=== PATIENT | male | born 1955 | race Caucasian/White ===

== ENCOUNTER 2019-08-15 13:37 | Outpatient (CLI) | payer MEDICAID, SELFPAY ==
[2019-08-15] MEDS: cyanocobalamin 1,000 mcg/mL SDV 1000 MCG SUBCUT (14:05)
== END 2019-08-15 13:38 | disposition home or self-care (01) ==
LOC: ONCMED 13:42
PROVIDERS: Family Provider Family Medicine; PCP Family Medicine; Visit Provider Internal Medicine Medical Oncology
DX: E53.8 Deficiency of other specified B group vitamins (principal)
CPT/HCPCS: 96372; J3420

== ENCOUNTER 2019-09-10 11:33 | Outpatient (CLI) | payer MEDICAID, SELFPAY ==
[2019-09-10] MEDS: cyanocobalamin 1,000 mcg/mL SDV 1000 MCG SUBCUT (13:04)
== END 2019-09-10 11:34 | disposition home or self-care (01) ==
LOC: ONCMED 11:34
PROVIDERS: Family Provider Family Medicine; PCP Family Medicine; Visit Provider Internal Medicine Medical Oncology
DX: E53.8 Deficiency of other specified B group vitamins (principal); C77.8 Secondary and unspecified malignant neoplasm of lymph nodes of multiple regions; C61 Malignant neoplasm of prostate
CPT/HCPCS: 96372; J3420

== ENCOUNTER 2019-10-09 12:16 | Outpatient (CLI) | payer MEDICAID, SELFPAY ==
[2019-10-09 13:10] LABS: Basophils # 0.1 10^3/uL (0.0-0.1); Basophils % 0.6 %; Eosinophils # 0.3 10^3/uL (0.0-0.8); Eosinophils % 3.6 %; Hematocrit 39.6 % (42.0-52.0); Hemoglobin 13.1 g/dL (11.7-16.6); Lymphocytes # 2.5 10^3/uL (0.8-4.8); Lymphocytes % 32.6 %; Mean Corpuscular HGB Conc 33.1 g/dL (30.0-36.0); Mean Corpuscular Hemoglobin 27.8 pg (28.0-34.0); Mean Corpuscular Volume 84.1 fL (80-94); Monocytes # 0.6 10^3/uL (0.2-0.9); Monocytes % 7.6 %; Neutrophils # 4.3 10^3/uL (1.8-7.7); Neutrophils % 55.5 %; Nucleated Red Blood Cells % 0 %; Platelet Count 217 10^3/cmm (130-400); Red Blood Count 4.71 10^6/uL (4.1-5.3); Red Cell Distribution Width 13.1 % (12.1-15.1); White Blood Count 7.7 10^3/uL (4.0-10.0)
[2019-10-09 13:33] LABS: Prostate Specific Antigen 3.49 ng/mL (0-4)
[2019-10-09 13:34] LABS: Testosterone Total 2.5 ng/dL (193-740)
[2019-10-09 13:45] LABS: Alanine Aminotransferase 11 U/L (0-41); Albumin Level 4.4 g/dL (3.5-5.2); Alkaline Phosphatase 110 IU/L (40-130); Anion Gap 17.4 (5-19); Aspartate Amino Transferase 15 U/L (0-40); Blood Urea Nitrogen 11 mg/dL (8-23); Calcium 9.8 mg/dL (8.5-10.5); Carbon Dioxide 25 mmol/L (22-29); Chloride 101 mmol/L (98-107); Globulin 3.2 g/dL (1.3-4.6); Glomerular Filtration Rate 85.5 mL/min (90-130); Glucose 99 mg/dL (65-115); Potassium 3.4 mmol/L (3.5-5.1); Sodium 140 mmol/L (136-145); Total Bilirubin 0.3 mg/dL (0.15-1.2); Total Protein 7.6 g/dL (6.6-8.7)
[2019-10-09] MEDS: leuprolide 22.5 mg Kit IM (14:40)
[2019-10-09] MEDS: cyanocobalamin 1,000 mcg/mL SDV 1000 MCG SUBCUT (14:40)
[2019-10-09 20:50] LABS: Erythrocyte Sedimentation Rate 20 mm/hr (0-10)
--- NOTE | 2019-10-10 07:20 | ONC FU_ITS ---
Dr. Heath Patient Follow-Up Note Patient: Shiva Cyr Unit #: [id number]: 1955 Dicatated By: Italo Heath M.D.Date of Visit:Oct 09, 2019 Onc Med Follow-up/Prog Note Chief Complaint: Prostate cancer. 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 In May 2015 he developed urinary retention. He apparently was then seen by a urologist in [place]. According to Dr. Olivo's note, they had suspected prostate cancer based on physical findings and elevated PSA level at 59 ng/mL. He declined biopsy or treatment. He was given a prescription for tamsulosin, but he stopped taking it because some of his joint pain got worse. In July 2016 he was admitted to the hospital with urinary retention. He underwent cystoscopy with transurethral resection/vaporization of the prostate on 07/27/2016. He was noted to have a fixed prostate gland with grossly abnormal architecture. There was evidence of early invasion into the right trigone of the bladder. Pathology showed prostatic adenocarcinoma, [place] score 4+4. Tumor was noted to infiltrate 90% of the submitted tissues. His PSA level at that time was 124 ng/mL. Renal function was borderline with BUN 11 and creatinine 1.3 mg/dL. The alkaline phosphatase was normal. He had further evaluation with bone scan on 08/05/2016. It showed no evidence of metastatic disease. Contrast enhanced CT evidence/pelvis at that time showed markedly enlarged prostate with enhancement of the seminal vesicles suggestive of neoplastic invasion. The base and posterior inferior aspect of the bladder wall also appeared likely invaded. There was diffuse mild thickening of the remainder of the bladder wall. There was mild right hydronephrosis and moderate right ureterectasis likely secondary to partial obstruction of the right ureterovesical junction from neoplastic bladder base invasion. There were multiple enlarged lymph nodes including the iliac regions, left greater than right, and left para-aortic retroperitoneum. The largest node was a left internal iliac region node measuring 4.5 x 2.3 x 2.9 cm. External left iliac nodes measure up to 3.3 x 3.6 x 2.9 cm. He did have follow-up visit with Dr. Olivo at that time. He was recommended to begin androgen deprivation therapy. I had seen him initially on 10/29/2016. At that point he was still having some swelling in his left leg. He was voiding better following the surgery in July. He did agree to proceed with the androgen deprivation therapy, and initially he started treatment with bicalutamide 50 mg daily. He received his initial injection of Depo-Lupron on 11/24/2016. His PSA level at that point had declined to 30.00 ng/mL compared to 124 ng/mL in July 2016. He had repeat laboratory studies on 12/23/2016. His PSA level at that point had declined to 7.58 ng/mL. At the 2017 [employer] meeting the results of a clinical trial were reported which indicated survival benefit with upfront use of abiraterone in combination with androgen deprivation compared to initiation of abiraterone with evidence of castrate resistance. As such, he was offered the option to begin treatment with Zytiga, which we were able to obtain for him under the [employer]'s patient assistance program. However, after reviewing the potential side effects, he was reluctant to take the medication. He then continued treatment with Depo-Lupron. As of 02/15/2017 his PSA level had declined to 1.97 ng/mL. He received a second injection of Depo-Lupron 22.5 mg on 02/23/2017. On his follow-up visit on 05/26/2017 his PSA had further declined to 0.68 ng/mL. However, at that point he opted to stop his treatment due to side effects, mainly hot flashes and fatigue. On his follow-up visit in August 2017 his PSA level had increased to 12.20 ng/mL, and he did agree to restart the Depo-Lupron. As of 12/15/2017 his PSA level had declined to 0.55 ng/mL. On his follow-up visit in March 2018 he had opted to stop treatment again. At that time he was found to have a low B12 level at 138 pg/mL, and he then started B12 replacement. As of his follow-up visit on 06/26/2018 there was a significant increase in the PSA level, up to 5.96 ng/mL. He then restarted Depo-Lupron. At his follow-up visit on 09/28/2018 the PSA had declined to 0.59 ng/mL. He continued treatment with Depo-Lupron. His medical illnesses, in addition to prostate cancer, include hypertension, degenerative arthritis, B12 deficiency, and obstructive sleep apnea. On 09/29/2017 he underwent repair of left inguinal hernia. He is a nonsmoker. INTERIM HISTORY: During followup he had continued his Depo-Lupron injections every 3 months. As of July 2019 his PSA level had increased slightly, to 1.26 ng/mL compared to 0.78 ng/mL in April and to 0.64 ng/mL in December. During this time there was no change in his clinical status. He is seen for a follow-up visit. He continues to have significant fatigue. This has been an ongoing complaint throughout his treatment, even during the times he has been off Depo-Lupron. His ECOG score is 2. He has good appetite. He has not had fever. He continues to have hot flashes. He has some shortness of breath with activity. He does not complain of chest pain. He sometimes has nausea. His acid reflux is pretty well managed with medication. Bowel function has been okay, though he sometimes has urgency with defecation. Bladder function is variable, but unchanged. He has some chronic pain and swelling in the left leg. Recently he is also been having arthritis pain in his hands and other joints. He sometimes has headache. He occasionally feels off balance. He has no focal neurologic symptoms. Medications: amLODIPine Besylate 1 Tablet (of 2.5 mg) Oral b.i.d., Aspirin Low Dose 1 Tablet (of 81 mg) Oral daily, Lisinopril (20 mg) Oral Take as Directed, Omeprazole 1 Capsule (of 20 mg) Capsule Delayed Release Oral daily Allergies: No Known Allergies. Review of Systems: Constitutional - His energy is low and he tires easily. He does do some light walking and exercise, but very little work activity. His appetite is good and his weight is stable. No fever or chills. He has some hot flashes and sweating. ECOG score is 2, Eyes - He has cataracts in his right eye. He will be having surgery on the , ENMT - No sinus congestion/drainage. No mouth sores. No sore throat or difficulty swallowing, Hematologic/Lymphatic - No abnormal bruising or bleeding, Respiratory - He has some shortness of breath with activity. No cough. No pleuritic pain or hemoptysis, Cardiovascular - No angina pain. No palpitations, Gastrointestinal - He has some nausea at times. No vomiting. No heartburn or acid reflux. No diarrhea or constipation. No blood in the stool or black stools, Genitourinary (M) - No dysuria or hematuria. No urinary frequency. No urgency or incontinence, Musculoskeletal - He has some pain and swelling in his left leg, Integumentary - No skin complications, Neurologic - He has occasional headaches. No dizziness. He does feel off-balance at times when he is walking. No numbness/paresthesias or other focal neurologic symptoms, Psychiatric - No anxiety or depression. No insomnia. Vital Signs: Performed on Oct 09, 2019 13:39 Height - 72.00 in Weight - 186.2 lbs (LOW) BSA - 2.07 sq.m BMI - 25.25 Temperature - 98.5 F Pulse - 77 /min Respiration - 17 /min BP - 124/82 mm(hg) O2 Sat - 99 % Pain - 5 Physical Examination: Constitutional - He looks pretty good generally, Eyes - Sclerae nonicteric. Conjunctivae clear, ENMT - No lesions noted in the oral cavity, Hematologic/Lymphatic - No cervical, clavicular, or axillary adenopathy, Respiratory - Lungs sound clear, Cardiovascular - Heart rhythm is regular. There is no murmur, gallop or rub noted, Abdomen - Soft. Liver and spleen are not enlarged. There is no abdominal mass or ascites noted. There is no inguinal denopathy noted, Extremities - There is mild, chronic swelling of the left leg, Neurologic - No focal neurologic deficits noted. Lab/Imaging: Test performed on Oct 09, 2019 12:45 CRP, High Sensitivity 0.280 mg/dL Sodium 140 mmol/L Testosterone, Total 2.5 ng/dL Potassium 3.4 mmol/L Chloride 101 mmol/L CO2 25 mmol/L Anion Gap 17.4 BUN 11 mg/dL Creatinine 0.9 mg/dL Cr Clearance (Est) 101.6700 mL/min eGFR 85.5 mL/min Glucose 99 mg/dL Calcium 9.8 mg/dL Protein, Total 7.6 g/dL Albumin 4.4 g/dL Globulin 3.2 g/dL Bilirubin, Total 0.3 mg/dL ALT (SGPT) 11 U/L AST (SGOT) 15 U/L Alkaline Phosphatase 110 IU/L ESR (Sed Rate) 20 mm/hr WBC 7.7 10 3/uL RBC 4.71 10 6/uL HGB 13.1 g/dL HCT 39.6 % MCV 84.1 fL MCH 27.8 pg MCHC 33.1 g/dL RDW 13.1 % Platelet Count 217 10 3/cmm MPV 11.0 fL Neutrophils 4.3 10 3/uL Lymphocytes 2.5 10 3/uL Monocytes 0.6 10 3/uL Eosinophils 0.3 10 3/uL Basophils 0.1 10 3/uL Neutrophil % 55.5 % Lymphocyte % 32.6 % Monocyte % 7.6 % Eosinophil % 3.6 % Basophils % 0.6 % PSA 3.49 ng/mL Impression: 1. Patient with [place] score 8 adenocarcinoma of the prostate, by clinical evaluation stage IV (T4, N1, M1a). It was clinically evident by May 2015 and confirmed pathologically in July 2016. He had associated urinary retention and mild right hydronephrosis. 2. He underwent transient urethral resection/vaporization of the prostate on 07/27/2016. His other medical illnesses include: 3. Hypertension. 4. Degenerative arthritis. 5. He has a left inguinal hernia. He began treatment with bicalutamide 50 mg daily following his visit on 10/29/2016. He then started Depo-Lupron on 11/24/2016. He had a very good response by PSA level. As of his follow-up visit on 05/26/2017 his PSA was down to 0.68 ng/mL compared to his pretreatment level of 118.8 ng/mL. He continued, though, to have residual swelling in his left leg. He also complained of severe hot flashes and fatigue, and he opted stop his treatment due to the side effects. Repeat CT abdomen/pelvis on 06/10/2017 showed significant decrease in the bulk of neoplastic prostate gland enlargement and significant improvement in the bladder base and seminal vesicle neoplastic invasion. There was resolved right hydronephrosis and significant improvement in right ureterectasis and there was significant improvement in the perirectal, iliac, and retroperitoneal lymphadenopathy. As of August 2017 there was a significant increase in his PSA level, to 12.20 ng/mL, and at that point he did agree to restart Depo-Lupron. He again had a good response, with his PSA level decreasing to 0.55 ng/mL on 12/15/2017. He continued treatment with Depo-Lupron. He had a good objective response to the androgen deprivation therapy, though he did have ongoing complaints of weakness/fatigue. In March 2018 he opted to stop treatment again. At that time he was found to have a significantly low B12 level, and he did start B12 replacement. As of his follow-up visit in June 2018 his clinical status had basically remained stable, but there was a significant increase in his PSA level to 5.96 ng/mL. At that point he restarted the Depo-Lupron. He again had a good objective response, though he continued to complain of fatigue and limited activity tolerance, and he continued to have severe hot flashes with the androgen deprivation therapy. During that time he was found to have obstructive sleep apnea, and he has started on CPAP. He has had ongoing problems with management of his hypertension. Beginning in April 2019 there has been a very gradual but progressive increase in his PSA level. His overall clinical status, though, has remained stable. Plan: He will continue androgen deprivation therapy with Depo-Lupron 22.5 mg by intramuscular injection. He continues monthly B12 injections. We discussed the fact that the rising PSA level is an indication that his cancer is progressing. We cannot predict when it will become symptomatic again. The recommended treatment would be to add an androgen inhibitor, most likely enzalutamide. There would be potential side effects involved, mainly fatigue and possibly increased hot flashes. At least for now he prefers to continue his same treatment and monitor closely. I will see him again in 3 months. If there has been further increase in the PSA level, I will schedule a restaging evaluation with CT abdomen/pelvis and bone scan, and we will then discuss his further treatment options. Signed By: Italo Heath M.D. <<Signature on File>>
== END 2019-10-09 12:17 | disposition home or self-care (01) ==
LOC: ONCMED 12:21
PROVIDERS: Family Provider Family Medicine; PCP Family Medicine; Visit Provider Internal Medicine Medical Oncology
DX: C61 Malignant neoplasm of prostate (principal); C77.4 Secondary and unspecified malignant neoplasm of inguinal and lower limb lymph nodes; M25.50 Pain in unspecified joint; R97.21 Rising PSA following treatment for malignant neoplasm of prostate; E78.5 Hyperlipidemia, unspecified; M19.90 Unspecified osteoarthritis, unspecified site; E53.8 Deficiency of other specified B group vitamins; G47.33 Obstructive sleep apnea (adult) (pediatric); G89.29 Other chronic pain; M79.89 Other specified soft tissue disorders; K40.90 Unilateral inguinal hernia, without obstruction or gangrene, not specified as recurrent; Z79.82 Long term (current) use of aspirin; Z79.818 Long term (current) use of other agents affecting estrogen receptors and estrogen levels; Z79.899 Other long term (current) drug therapy
CPT/HCPCS: 36415; 80053; 84153; 84403; 85025; 85651; 86141; 96372; 96402; 99214; J3420; J9217

== ENCOUNTER 2019-12-10 12:51 | Outpatient (CLI) | payer MEDICAID, SELFPAY ==
[2019-12-10] MEDS: cyanocobalamin 1,000 mcg/mL SDV 1000 MCG SUBCUT (13:05)
== END 2019-12-10 12:52 | disposition home or self-care (01) ==
LOC: ONCMED 12:53
PROVIDERS: Family Provider Family Medicine; PCP Family Medicine; Visit Provider Internal Medicine Medical Oncology
DX: E53.8 Deficiency of other specified B group vitamins (principal)
CPT/HCPCS: 96372; J3420

== ENCOUNTER 2020-01-09 12:42 | Outpatient (CLI) | payer MEDICAID, SELFPAY ==
[2020-01-09 13:10] LABS: Basophils # 0.1 10^3/uL (0.0-0.1); Basophils % 0.6 %; Eosinophils # 0.3 10^3/uL (0.0-0.8); Eosinophils % 2.6 %; Hemoglobin 14.2 g/dL (11.7-16.6); Lymphocytes # 2.3 10^3/uL (0.8-4.8); Lymphocytes % 23.4 %; Mean Corpuscular Hemoglobin 28.1 pg (28.0-34.0); Mean Platelet Volume 11.1 fL (7.4-10.4); Monocytes # 0.7 10^3/uL (0.2-0.9); Monocytes % 6.7 %; Neutrophils # 6.5 10^3/uL (1.8-7.7); Neutrophils % 66.4 %; Nucleated Red Blood Cells % 0 %; Platelet Count 242 10^3/cmm (130-400); Red Blood Count 5.06 10^6/uL (4.1-5.3); Red Cell Distribution Width 12.8 % (12.1-15.1); White Blood Count 9.7 10^3/uL (4.0-10.0)
[2020-01-09 13:40] LABS: Alanine Aminotransferase 12 U/L (0-41); Albumin Level 4.5 g/dL (3.5-5.2); Alkaline Phosphatase 103 IU/L (40-130); Anion Gap 17.1 (5-19); Aspartate Amino Transferase 16 U/L (0-40); Blood Urea Nitrogen 15 mg/dL (8-23); Calcium 9.6 mg/dL (8.5-10.5); Carbon Dioxide 26 mmol/L (22-29); Chloride 102 mmol/L (98-107); Globulin 3.3 g/dL (1.3-4.6); Glucose 110 mg/dL (65-115); Homocysteine 13.59; Osmolality Calculated 291 mOsm/kg (285-295); Potassium 3.1 mmol/L (3.5-5.1); Sodium 142 mmol/L (136-145); Total Bilirubin 0.4 mg/dL (0.15-1.2); Total Protein 7.8 g/dL (6.6-8.7)
[2020-01-09 14:15] LABS: Prostate Specific Antigen 4.71 ng/mL (0-4)
[2020-01-09 14:39] LABS: Testosterone Total 2.5 ng/dL (193-740)
[2020-01-09 16:11] LABS: Vitamin B12 423 pg/mL (232-1245)
[2020-01-10 14:07] LABS: Anti-Nuclear Antibody Screen NEGATIVE (NEGATIVE)
[2020-01-13 03:01] LABS: Methylmalonic Acid 237 nmol/L (87-318)
--- NOTE | 2020-01-13 10:58 | ONC FU_ITS ---
Dr. Heath Patient Follow-Up Note Patient: Shiva Cyr Unit #: [id number]: 1955 Dicatated By: Italo Heath M.D.Date of Visit:Jan 09, 2020 Onc Med Follow-up/Prog Note Chief Complaint: Prostate cancer. 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 In May 2015 he developed urinary retention. He apparently was then seen by a urologist in [place]. According to Dr. Olivo's note, they had suspected prostate cancer based on physical findings and elevated PSA level at 59 ng/mL. He declined biopsy or treatment. He was given a prescription for tamsulosin, but he stopped taking it because some of his joint pain got worse. In July 2016 he was admitted to the hospital with urinary retention. He underwent cystoscopy with transurethral resection/vaporization of the prostate on 07/27/2016. He was noted to have a fixed prostate gland with grossly abnormal architecture. There was evidence of early invasion into the right trigone of the bladder. Pathology showed prostatic adenocarcinoma, Snowmass score 4+4. Tumor was noted to infiltrate 90% of the submitted tissues. His PSA level at that time was 124 ng/mL. Renal function was borderline with BUN 11 and creatinine 1.3 mg/dL. The alkaline phosphatase was normal. He had further evaluation with bone scan on 08/05/2016. It showed no evidence of metastatic disease. Contrast enhanced CT evidence/pelvis at that time showed markedly enlarged prostate with enhancement of the seminal vesicles suggestive of neoplastic invasion. The base and posterior inferior aspect of the bladder wall also appeared likely invaded. There was diffuse mild thickening of the remainder of the bladder wall. There was mild right hydronephrosis and moderate right ureterectasis likely secondary to partial obstruction of the right ureterovesical junction from neoplastic bladder base invasion. There were multiple enlarged lymph nodes including the iliac regions, left greater than right, and left para-aortic retroperitoneum. The largest node was a left internal iliac region node measuring 4.5 x 2.3 x 2.9 cm. External left iliac nodes measure up to 3.3 x 3.6 x 2.9 cm. He did have follow-up visit with Dr. Olivo at that time. He was recommended to begin androgen deprivation therapy. I had seen him initially on 10/29/2016. At that point he was still having some swelling in his left leg. He was voiding better following the surgery in July. He did agree to proceed with the androgen deprivation therapy, and initially he started treatment with bicalutamide 50 mg daily. He received his initial injection of Depo-Lupron on 11/24/2016. His PSA level at that point had declined to 30.00 ng/mL compared to 124 ng/mL in July 2016. He had repeat laboratory studies on 12/23/2016. His PSA level at that point had declined to 7.58 ng/mL. At the 2017 ASCO meeting the results of a clinical trial were reported which indicated survival benefit with upfront use of abiraterone in combination with androgen deprivation compared to initiation of abiraterone with evidence of castrate resistance. 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 However, after reviewing the potential side effects, he was reluctant to take the medication. He then continued treatment with Depo-Lupron. As of 02/15/2017 his PSA level had declined to 1.97 ng/mL. He received a second injection of Depo-Lupron 22.5 mg on 02/23/2017. On his follow-up visit on 05/26/2017 his PSA had further declined to 0.68 ng/mL. However, at that point he opted to stop his treatment due to side effects, mainly hot flashes and fatigue. On his follow-up visit in August 2017 his PSA level had increased to 12.20 ng/mL, and he did agree to restart the Depo-Lupron. As of 12/15/2017 his PSA level had declined to 0.55 ng/mL. On his follow-up visit in March 2018 he had opted to stop treatment again. At that time he was found to have a low B12 level at 138 pg/mL, and he then started B12 replacement. As of his follow-up visit on 06/26/2018 there was a significant increase in the PSA level, up to 5.96 ng/mL. He then restarted Depo-Lupron. At his follow-up visit on 09/28/2018 the PSA had declined to 0.59 ng/mL. He continued treatment with Depo-Lupron. His medical illnesses, in addition to prostate cancer, include hypertension, degenerative arthritis, B12 deficiency, and obstructive sleep apnea. On 09/29/2017 he underwent repair of left inguinal hernia. He is a nonsmoker. INTERIM HISTORY: During followup he had continued his Depo-Lupron injections every 3 months. As of July 2019 his PSA level had increased slightly, to 1.26 ng/mL compared to 0.78 ng/mL in April and to 0.64 ng/mL in December. During this time there was no change in his clinical status. In October 2019 the PSA had further increased to 3.49 ng/mL. He continued androgen deprivation with Depo-Lupron. He is seen for a follow-up visit. He still does not feel good generally. His energy is not very good, and he has limited activity. ECOG score is 2. His appetite has been okay. His weight is down a couple of pounds. He does not have fever. He does have hot flashes and sweating with the Depo-Lupron. He has some shortness of breath associated with the hot flashes. He does not complain of chest pain. He sometimes has nausea. He occasionally has heartburn. He sometimes has constipation. Bladder function remains adequate, though he has been voiding a little less frequently. He has been having more joint pain, including the knees, elbows, and shoulders. He continues to have some pain in his left leg. Does tend to be worse in the evenings. He does not complain of headache or dizziness. He has no focal neurologic symptoms. He indicates that he has missed a couple of B12 shots. Medications: amLODIPine Besylate 1 Tablet (of 2.5 mg) Oral b.i.d., Lisinopril 1 Tablet (of 20 mg) Oral daily, Omeprazole 1 Capsule (of 20 mg) Capsule Delayed Release Oral daily Allergies: No Known Allergies. Review of Systems: Constitutional - He generally feels okay, though he has limited activity. His appetite is good and weight is down a few pounds. No fever. He is having hot flashes with day and night sweating. ECOG score is 2, ENMT - No sinus congestion/drainage. No mouth sores. No sore throat or difficulty swallowing, Hematologic/Lymphatic - No abnormal bruising or bleeding, Respiratory - He gets short of breath with hot flashes. No cough. No pleuritic pain or hemoptysis, Cardiovascular - No angina pain. No palpitations, Gastrointestinal - No nausea or vomiting. He has occasional heartburn depending on what he eats. No diarrhea. He has occasional constipation. No blood in the stool or black stools, Genitourinary (M) - No dysuria or hematuria. No urinary frequency. No urgency or incontinence, Musculoskeletal - He is having generalized joint pain, worse in the evenings, Integumentary - No skin complications, Neurologic - No headache or dizziness. No numbness or tingling. No other focal neurologic symptoms, Psychiatric - He has some mild anxiety and depression. No insomnia. Vital Signs: Performed on Jan 09, 2020 14:07 Height - 72.00 in Weight - 184.4 lbs (LOW) BSA - 2.06 sq.m BMI - 25.01 Temperature - 97.8 F (LOW) Pulse - 90 /min Respiration - 22 /min BP - 198/110 mm(hg) (HIGH) O2 Sat - 98 % Pain - 4 Physical Examination: Constitutional - He looks pretty good generally, Eyes - Sclerae nonicteric. Conjunctivae clear, ENMT - No lesions noted in the oral cavity, Hematologic/Lymphatic - No cervical, clavicular, or axillary adenopathy, Respiratory - Lungs sound clear, Cardiovascular - Heart rhythm is regular. There is no murmur, gallop or rub noted, Abdomen - Soft. Liver and spleen are not enlarged. There is no abdominal mass or ascites noted. There is no inguinal denopathy noted, Extremities - There is mild, chronic swelling of the left leg, unchanged, Neurologic - No focal neurologic deficits noted. Lab/Imaging: Test performed on Jan 09, 2020 12:53 Homocysteine 13.59 umol/L Methylmalonic Acid 237 nmol/L Sodium 142 mmol/L Testosterone, Total 2.5 ng/dL Vitamin B12 423 pg/mL Potassium 3.1 mmol/L Chloride 102 mmol/L CO2 26 mmol/L Anion Gap 17.1 BUN 15 mg/dL Creatinine 0.8 mg/dL Cr Clearance (Est) 113.2700 mL/min eGFR 98.0 mL/min Glucose 110 mg/dL Calcium 9.6 mg/dL Protein, Total 7.8 g/dL Albumin 4.5 g/dL Globulin 3.3 g/dL Bilirubin, Total 0.4 mg/dL ALT (SGPT) 12 U/L AST (SGOT) 16 U/L Alkaline Phosphatase 103 IU/L WBC 9.7 10 3/uL RBC 5.06 10 6/uL HGB 14.2 g/dL HCT 43.0 % MCV 85.0 fL MCH 28.1 pg MCHC 33.0 g/dL RDW 12.8 % Platelet Count 242 10 3/cmm MPV 11.1 fL Neutrophils 6.5 10 3/uL Lymphocytes 2.3 10 3/uL Monocytes 0.7 10 3/uL Eosinophils 0.3 10 3/uL Basophils 0.1 10 3/uL Neutrophil % 66.4 % Lymphocyte % 23.4 % Monocyte % 6.7 % Eosinophil % 2.6 % Basophils % 0.6 % JAMAL NEGATIVE JAMAL IFA is a first line screen for detecting the presence of up to approximately 150 autoantibodies in various autoimmune diseases. A negative JAMAL IFA result suggests an JAMAL-associated autoimmune disease is not present at this time, but is not definitive. If there is high clinical suspicion for Sjogren's syndrome, testing for anti-SS-A/Ro antibody should be considered. Anti-Maryann-1 antibody should be considered for clinically suspected inflammatory myopathies. AC-0: Negative International Consensus on JAMAL Patterns (https://doi.org/10.1515/oyjc-0157-0669) For additional information, please refer to http://education.Mytrus/faq/TUQ804 (This link is being provided for informational/ educational purposes only.) THIS TEST WAS PERFORMED AT: [facility] [id number] [place] [address] YI ECHEVARRIA DO,MPH PSA 4.71 ng/mL Impression: 1. Patient with Sawyer score 8 adenocarcinoma of the prostate, by clinical evaluation stage IV (T4, N1, M1a). It was clinically evident by May 2015 and confirmed pathologically in July 2016. He had associated urinary retention and mild right hydronephrosis. 2. He underwent transient urethral resection/vaporization of the prostate on 07/27/2016. His other medical illnesses include: 3. Hypertension. 4. Degenerative arthritis. 5. He has a left inguinal hernia. He began treatment with bicalutamide 50 mg daily following his visit on 10/29/2016. He then started Depo-Lupron on 11/24/2016. He had a very good response by PSA level. As of his follow-up visit on 05/26/2017 his PSA was down to 0.68 ng/mL compared to his pretreatment level of 118.8 ng/mL. He continued, though, to have residual swelling in his left leg. He also complained of severe hot flashes and fatigue, and he opted stop his treatment due to the side effects. Repeat CT abdomen/pelvis on 06/10/2017 showed significant decrease in the bulk of neoplastic prostate gland enlargement and significant improvement in the bladder base and seminal vesicle neoplastic invasion. There was resolved right hydronephrosis and significant improvement in right ureterectasis and there was significant improvement in the perirectal, iliac, and retroperitoneal lymphadenopathy. As of August 2017 there was a significant increase in his PSA level, to 12.20 ng/mL, and at that point he did agree to restart Depo-Lupron. He again had a good response, with his PSA level decreasing to 0.55 ng/mL on 12/15/2017. He continued treatment with Depo-Lupron. He had a good objective response to the androgen deprivation therapy, though he did have ongoing complaints of weakness/fatigue. In March 2018 he opted to stop treatment again. At that time he was found to have a significantly low B12 level, and he did start B12 replacement. As of his follow-up visit in June 2018 his clinical status had basically remained stable, but there was a significant increase in his PSA level to 5.96 ng/mL. At that point he restarted the Depo-Lupron. He again had a good objective response, though he continued to complain of fatigue and limited activity tolerance, and he continued to have severe hot flashes with the androgen deprivation therapy. During that time he was found to have obstructive sleep apnea, and he has started on CPAP. He has had ongoing problems with management of his hypertension. Beginning in April 2019 there has been a very gradual but progressive increase in his PSA level. During follow-up he has continued to have fairly limited activity tolerance, but his overall clinical status has been stable. Plan: He will continue androgen deprivation therapy with Depo-Lupron 22.5 mg by intramuscular injection. He continues monthly B12 injections. With the rising PSA level, he will be scheduled for restaging evaluation with CT abdomen/pelvis and with bone scan. Depending on those results, we will decide whether or not to add antiandrogen therapy. In the meantime, also will request a next generation sequencing study on his biopsy. Signed By: Italo Heath M.D. <<Signature on File>>
== END 2020-01-09 12:43 | disposition home or self-care (01) ==
LOC: ONCMED 12:43
PROVIDERS: PCP Family Medicine; Visit Provider Internal Medicine Medical Oncology
DX: C61 Malignant neoplasm of prostate (principal); C77.8 Secondary and unspecified malignant neoplasm of lymph nodes of multiple regions; D51.9 Vitamin B12 deficiency anemia, unspecified; I10 Essential (primary) hypertension; N40.1 Benign prostatic hyperplasia with lower urinary tract symptoms; R33.8 Other retention of urine; K40.90 Unilateral inguinal hernia, without obstruction or gangrene, not specified as recurrent; M19.90 Unspecified osteoarthritis, unspecified site; Z79.818 Long term (current) use of other agents affecting estrogen receptors and estrogen levels; Z79.899 Other long term (current) drug therapy
CPT/HCPCS: 36415; 80053; 82607; 83090; 84153; 84403; 85025; 86431; 99214

== ENCOUNTER 2020-01-21 08:28 | Outpatient (CLI) | payer MEDICAID, SELFPAY ==
--- NOTE | 2020-01-21 08:29 | NM_ITS ---
WS: [id number] NM bone scan whole body* [id number] REASON FOR EXAM: PROSTATE CANCER TECHNICAL: 24.6 mCi technetium 99m HDP FINDINGS: Mild degenerate changes in both knee joints. No pathological activity is seen. The remaining skeletal system showed normal appearance of the skull. The neck was normal. The thoraci c lumbar spine were normal as well as the pelvis. There was no evidence to suggest metastatic disease. Both kidneys show normal excretory changes. NM/NM bone scan whole body* [id number] IMPRESSION: Mild degenerate changes of the knees bilaterally. No evidence suspicious of metastatic disease.
--- NOTE | 2020-01-21 08:29 | CT_ITS ---
WS: [id number] REASON FOR EXAM: PROSTATE CANCER IV CONTRAST ADMINISTERED: Omnipaque 300, 75 mL TOTAL EXAM DLP: 695.[address] scans at [facility] use at least one of these dose optimization techniques: automat ed exposure control; mA and/or kV adjustment per patient size (includes targeted exams where dose is matched to clinical indication); or iterative reconstruction. FINDINGS: The lower lungs appear to be normal as well as the mediastinum. CT/CT abdomen pelvis w con* [id number] IMPRESSION: Comparisons were made to an exam of June 10, 2017. The prostate again shows a TUR defect. The gland is smaller but shows a solitary nodule along the left s kasia measures 2.26cm. There does not appear to be any evidence of seminal vesicle invasion or bladde r deformity. The bladder appears to be essentially normal in size. The right se sona vesicle is slightly prominent. In the pelvis the bony structures do not suggest any metastatic foci. An no justa nges are noted in the lumbar spine to suggest metastatic disease. The upper abdomen shows normal appearance of the liver, gallbladder, pancreas, spleen, stomach, pancreas, aorta and inferior vena cava. Both kidneys are of normal size no hydronephrosis no stones. In the right colon normal appearance the appendix appears to be normal. The small bowel patterns were normal. The descending colon shows scattered diverticulosis but no diverticulitis. There was no evidence of para rectal retroperitoneal lymphadenopathy seen. Impression: The prostate is markedly smaller than previous exam of 2017. There is no invasion of the ureter are bladder are seminal vesicles. The prostate is normal in size but does show a prominent nodule which appears t o be solid measures 2.26 cm
[2020-01-21] MEDS: iohexol 300 mg/mL 50 mL Btl PO (08:39)
[2020-01-21] MEDS: iohexol 300 mg/mL 100 mL Btl IV (09:41)
== END 2020-01-21 08:29 | disposition home or self-care (01) ==
PROVIDERS: PCP Family Medicine; Visit Provider Internal Medicine Medical Oncology
DX: C61 Malignant neoplasm of prostate (principal); N40.2 Nodular prostate without lower urinary tract symptoms
CPT/HCPCS: 74177; 78306; A9561

== ENCOUNTER 2020-04-16 13:58 | Outpatient (CLI) | payer MEDICAID, SELFPAY ==
[2020-04-16 14:42] LABS: Basophils # 0.1 10^3/uL (0.0-0.1); Basophils % 0.6 %; Eosinophils # 0.4 10^3/uL (0.0-0.8); Eosinophils % 4.2 %; Hemoglobin 13.3 g/dL (11.7-16.6); Lymphocytes # 2.3 10^3/uL (0.8-4.8); Lymphocytes % 25.8 %; Mean Corpuscular HGB Conc 32.4 g/dL (30.0-36.0); Mean Corpuscular Hemoglobin 28.7 pg (28.0-34.0); Mean Corpuscular Volume 88.4 fL (80-94); Monocytes # 0.6 10^3/uL (0.2-0.9); Monocytes % 6.6 %; Neutrophils # 5.62 10^3/uL (1.8-7.7); Neutrophils % 62.6 %; Nucleated Red Blood Cells % 0 %; Platelet Count 235 10^3/cmm (130-400); Red Blood Count 4.64 10^6/uL (4.1-5.3); Red Cell Distribution Width 13.1 % (12.1-15.1)
[2020-04-16 15:21] LABS: Alanine Aminotransferase < 5 U/L (0-41); Albumin Level 4.2 g/dL (3.5-5.2); Alkaline Phosphatase 99 IU/L (40-130); Anion Gap 13.9 (5-19); Aspartate Amino Transferase 14 U/L (0-40); Blood Urea Nitrogen 17 mg/dL (8-23); Carbon Dioxide 26 mmol/L (22-29); Chloride 103 mmol/L (98-107); Globulin 3.1 g/dL (1.3-4.6); Glomerular Filtration Rate 75.7 mL/min (90-130); Glucose 112 mg/dL (65-115); Osmolality Calculated 285 mOsm/kg (285-295); Potassium 3.9 mmol/L (3.5-5.1); Sodium 139 mmol/L (136-145); Total Bilirubin 0.4 mg/dL (0.15-1.2); Total Protein 7.3 g/dL (6.6-8.7)
--- NOTE | 2020-04-20 10:59 | ONC FU_ITS ---
Dr. Heath Patient Follow-Up Note Patient: Shiva Cyr Unit #: [id number]: 1955 Dicatated By: Italo Heath M.D.Date of Visit:Apr 16, 2020 Onc Med Follow-up/Prog Note Chief Complaint: Prostate cancer. 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 In May 2015 he developed urinary retention. He apparently was then seen by a urologist in [place]. According to Dr. Olivo's note, they had suspected prostate cancer based on physical findings and elevated PSA level at 59 ng/mL. He declined biopsy or treatment. He was given a prescription for tamsulosin, but he stopped taking it because some of his joint pain got worse. In July 2016 he was admitted to the hospital with urinary retention. He underwent cystoscopy with transurethral resection/vaporization of the prostate on 07/27/2016. He was noted to have a fixed prostate gland with grossly abnormal architecture. There was evidence of early invasion into the right trigone of the bladder. Pathology showed prostatic adenocarcinoma, [place] score 4+4. Tumor was noted to infiltrate 90% of the submitted tissues. His PSA level at that time was 124 ng/mL. Renal function was borderline with BUN 11 and creatinine 1.3 mg/dL. The alkaline phosphatase was normal. He had further evaluation with bone scan on 08/05/2016. It showed no evidence of metastatic disease. Contrast enhanced CT evidence/pelvis at that time showed markedly enlarged prostate with enhancement of the seminal vesicles suggestive of neoplastic invasion. The base and posterior inferior aspect of the bladder wall also appeared likely invaded. There was diffuse mild thickening of the remainder of the bladder wall. There was mild right hydronephrosis and moderate right ureterectasis likely secondary to partial obstruction of the right ureterovesical junction from neoplastic bladder base invasion. There were multiple enlarged lymph nodes including the iliac regions, left greater than right, and left para-aortic retroperitoneum. The largest node was a left internal iliac region node measuring 4.5 x 2.3 x 2.9 cm. External left iliac nodes measure up to 3.3 x 3.6 x 2.9 cm. He did have follow-up visit with Dr. Olivo at that time. He was recommended to begin androgen deprivation therapy. I had seen him initially on 10/29/2016. At that point he was still having some swelling in his left leg. He was voiding better following the surgery in July. He did agree to proceed with the androgen deprivation therapy, and initially he started treatment with bicalutamide 50 mg daily. He received his initial injection of Depo-Lupron on 11/24/2016. His PSA level at that point had declined to 30.00 ng/mL compared to 124 ng/mL in July 2016. He had repeat laboratory studies on 12/23/2016. His PSA level at that point had declined to 7.58 ng/mL. At the 2017 ASC[employer] meeting the results of a clinical trial were reported which indicated survival benefit with upfront use of abiraterone in combination with androgen deprivation compared to initiation of abiraterone with evidence of castrate resistance. As such, he was offered the option to begin treatment with Zytiga, which we were able to obtain for him under the senior government program analyst's patient assistance program. However, after reviewing the potential side effects, he was reluctant to take the medication. He then continued treatment with Depo-Lupron. As of 02/15/2017 his PSA level had declined to 1.97 ng/mL. He received a second injection of Depo-Lupron 22.5 mg on 02/23/2017. On his follow-up visit on 05/26/2017 his PSA had further declined to 0.68 ng/mL. However, at that point he opted to stop his treatment due to side effects, mainly hot flashes and fatigue. On his follow-up visit in August 2017 his PSA level had increased to 12.20 ng/mL, and he did agree to restart the Depo-Lupron. As of 12/15/2017 his PSA level had declined to 0.55 ng/mL. On his follow-up visit in March 2018 he had opted to stop treatment again. At that time he was found to have a low B12 level at 138 pg/mL, and he then started B12 replacement. As of his follow-up visit on 06/26/2018 there was a significant increase in the PSA level, up to 5.96 ng/mL. He then restarted Depo-Lupron. At his follow-up visit on 09/28/2018 the PSA had declined to 0.59 ng/mL. He continued treatment with Depo-Lupron. His medical illnesses, in addition to prostate cancer, include hypertension, degenerative arthritis, B12 deficiency, and obstructive sleep apnea. On 09/29/2017 he underwent repair of left inguinal hernia. He is a nonsmoker. INTERIM HISTORY: During followup he had continued his Depo-Lupron injections every 3 months. As of July 2019 his PSA level had increased slightly, to 1.26 ng/mL compared to 0.78 ng/mL in April and to 0.64 ng/mL in December. During this time there was no change in his clinical status. In October 2019 the PSA had further increased to 3.49 ng/mL. He continued androgen deprivation with Depo-Lupron. In January there was a slight further increase in the PSA to 4.71 ng/mL. Restaging CT abdomen/pelvis on 01/21/2020 showed smaller prostate compared to the 2016 study and no evidence of pararectal or retroperitoneal lymphadenopathy. Bone scan showed degenerative changes in the knees with no evidence of metastatic disease. For reasons unclear to me he opted not to take his scheduled Depo-Lupron injection. He is seen for a follow-up visit. He is feeling about the same other than he has been having just occasional hot flashes after skipping his schedule Depo-Lupron injection in January. He still has poor energy and limited activity. ECOG score is 2. His appetite is not bad. His weight is stable. He has not had fever. He had short of breath with the hot flashes. His breathing is otherwise okay. He has not had chest pain. He sometimes has nausea. His acid reflux is adequately managed with omeprazole. He has no complaints with bowel function. Bladder function remains the same. He complains of having generalized joint pain. It is worse some days than others. He had headache following recent eye surgery for detached retina. He occasionally feels off balance. He sometimes has numbness/tingling. Medications: amLODIPine Besylate 1 Tablet (of 2.5 mg) Oral b.i.d., K-Tab 1 Tablet (of 10 meq) Tablet, controlled release Oral daily, Lisinopril 1 Tablet (of 20 mg) Oral daily, Mmkflaen-Nbbnnqfpz-Oiaofxed 1 ([id number] ) Ointment Ophthalmic t.i.d., Omeprazole 1 Capsule (of 20 mg) Capsule Delayed Release Oral daily Allergies: No Known Allergies. Review of Systems: Constitutional - He is doing okay, though he is not doing much at home. His appetite is good and weight is stable. No fevers. He has occasional hot flashes with sweating. ECOG score is 2, Eyes - He recently had emergency surgery to his eye from a detached retina, ENMT - No sinus congestion/drainage. No mouth sores. No sore throat or difficulty swallowing, Hematologic/Lymphatic - No abnormal bruising or bleeding, Respiratory - He has occasional shortness of breath, he notices this during hot flashes. No cough. No pleuritic pain or hemoptysis, Cardiovascular - No angina pain. No palpitations, Gastrointestinal - No nausea or vomiting. He has heartburn if he forgets to take his omeprazole. No diarrhea or constipation. No blood in the stool or black stools, Genitourinary (M) - No dysuria or hematuria. No urinary frequency. No urgency or incontinence, Musculoskeletal - He has generalized joint pain, Integumentary - No skin complications, Neurologic - He was having a headache from eye surgery. He has off balance sensation. He has some numbness and tingling. No other focal neurologic symptoms, Psychiatric - No anxiety or depression. He is not sleeping well. Vital Signs: Performed on Apr 16, 2020 15:29 Height - 72.00 in Weight - 185.4 lbs (HIGH) BSA - 2.06 sq.m BMI - 25.14 Temperature - 97.8 F (LOW) Pulse - 91 /min Respiration - 18 /min BP - 180/100 mm(hg) (HIGH) O2 Sat - 96 % Pain - 4 Physical Examination: Constitutional - He looks pretty good generally, Eyes - Sclerae nonicteric. Conjunctivae clear, ENMT - No lesions noted in the oral cavity, Hematologic/Lymphatic - No cervical, clavicular, or axillary adenopathy, Respiratory - Lungs sound clear, Cardiovascular - Heart rhythm is regular. There is no murmur, gallop or rub noted, Abdomen - Soft. Liver and spleen are not enlarged. There is no abdominal mass or ascites noted. There is no inguinal denopathy noted, Extremities - There is mild swelling of the left leg, which is unchanged, Neurologic - No focal neurologic deficits noted. Lab/Imaging: Test performed on Apr 16, 2020 14:05 Sodium 139 mmol/L Potassium 3.9 mmol/L Chloride 103 mmol/L CO2 26 mmol/L Anion Gap 13.9 BUN 17 mg/dL Creatinine 1.0 mg/dL Cr Clearance (Est) 91.11 mL/min eGFR 75.7 mL/min Glucose 112 mg/dL Calcium 9.0 mg/dL Protein, Total 7.3 g/dL Albumin 4.2 g/dL Globulin 3.1 g/dL Bilirubin, Total 0.4 mg/dL ALT (SGPT) < 5 U/L AST (SGOT) 14 U/L Alkaline Phosphatase 99 IU/L WBC 9.0 10 3/uL RBC 4.64 10 6/uL HGB 13.3 g/dL HCT 41.0 % MCV 88.4 fL MCH 28.7 pg MCHC 32.4 g/dL RDW 13.1 % Platelet Count 235 10 3/cmm MPV 11.0 fL Neutrophils 5.62 10 3/uL Lymphocytes 2.3 10 3/uL Monocytes 0.6 10 3/uL Eosinophils 0.4 10 3/uL Basophils 0.1 10 3/uL Neutrophil % 62.6 % Lymphocyte % 25.8 % Monocyte % 6.6 % Eosinophil % 4.2 % Basophils % 0.6 % NRBC % 0 % PSA 19.930 ng/mL Impression: 1. Patient with Wautoma score 8 adenocarcinoma of the prostate, by clinical evaluation stage IV (T4, N1, M1a). It was clinically evident by May 2015 and confirmed pathologically in July 2016. He had associated urinary retention and mild right hydronephrosis. 2. He underwent transient urethral resection/vaporization of the prostate on 07/27/2016. His other medical illnesses include: 3. Hypertension. 4. Degenerative arthritis. 5. He has a left inguinal hernia. He began treatment with bicalutamide 50 mg daily following his visit on 10/29/2016. He then started Depo-Lupron on 11/24/2016. He had a very good response by PSA level. As of his follow-up visit on 05/26/2017 his PSA was down to 0.68 ng/mL compared to his pretreatment level of 118.8 ng/mL. He continued, though, to have residual swelling in his left leg. He also complained of severe hot flashes and fatigue, and he opted stop his treatment due to the side effects. Repeat CT abdomen/pelvis on 06/10/2017 showed significant decrease in the bulk of neoplastic prostate gland enlargement and significant improvement in the bladder base and seminal vesicle neoplastic invasion. There was resolved right hydronephrosis and significant improvement in right ureterectasis and there was significant improvement in the perirectal, iliac, and retroperitoneal lymphadenopathy. As of August 2017 there was a significant increase in his PSA level, to 12.20 ng/mL, and at that point he did agree to restart Depo-Lupron. He again had a good response, with his PSA level decreasing to 0.55 ng/mL on 12/15/2017. He continued treatment with Depo-Lupron. He had a good objective response to the androgen deprivation therapy, though he did have ongoing complaints of weakness/fatigue. In March 2018 he opted to stop treatment again. At that time he was found to have a significantly low B12 level, and he did start B12 replacement. As of his follow-up visit in June 2018 his clinical status had basically remained stable, but there was a significant increase in his PSA level to 5.96 ng/mL. At that point he restarted the Depo-Lupron. He again had a good objective response, though he continued to complain of fatigue and limited activity tolerance, and he continued to have severe hot flashes with the androgen deprivation therapy. During that time he was found to have obstructive sleep apnea, and he has started on CPAP. He has had ongoing problems with management of his hypertension. Beginning in April 2019 there was a very gradual but progressive increase in his PSA level. During follow-up he continued to have fairly limited activity tolerance, but his overall clinical status had remained stable. As of January 2020 his PSA level had increased to 4.71 ng/mL. At that point he had restaging with CT abdomen/pelvis and bone scan, with no evidence of metastatic disease noted on either study. For reasons unclear to me he opted not to take his scheduled Depo-Lupron. There has now been a more significant increase in the PSA level, to 19.93 ng/mL, but with no significant change in his clinical status. Plan: He will continue androgen deprivation therapy with leuprolide 22.5 mg by intramuscular injection. He also continues monthly B12 injections. If there is continued increase in his PSA level, he will be given the option to begin antiandrogen therapy with enzalutamide or abiraterone/prednisone. I will see him again in 3 months, or sooner as needed. Signed By: Italo Heath M.D. <<Signature on File>>
== END 2020-04-16 13:59 | disposition home or self-care (01) ==
LOC: ONCMED 14:01
PROVIDERS: PCP Family Medicine; Visit Provider Internal Medicine Medical Oncology
DX: C61 Malignant neoplasm of prostate (principal); C77.8 Secondary and unspecified malignant neoplasm of lymph nodes of multiple regions; E53.8 Deficiency of other specified B group vitamins; I10 Essential (primary) hypertension; Z79.818 Long term (current) use of other agents affecting estrogen receptors and estrogen levels; M19.90 Unspecified osteoarthritis, unspecified site; K40.90 Unilateral inguinal hernia, without obstruction or gangrene, not specified as recurrent
CPT/HCPCS: 80053; 84153; 85025; 99214

== ENCOUNTER 2020-04-28 05:50 | Outpatient (CLI) | payer MEDICAID, SELFPAY ==
[2020-04-28] MEDS: cyanocobalamin 1,000 mcg/mL SDV 1000 MCG SUBCUT (13:20)
== END 2020-04-28 05:51 | disposition home or self-care (01) ==
PROVIDERS: PCP Family Medicine; Visit Provider Nurse Practitioner
DX: C61 Malignant neoplasm of prostate (principal); C77.8 Secondary and unspecified malignant neoplasm of lymph nodes of multiple regions; E53.9 Vitamin B deficiency, unspecified
CPT/HCPCS: 96372; 96402; J3420; J9217

== ENCOUNTER 2020-08-20 13:59 | Outpatient (CLI) | payer MEDICAID, SELFPAY ==
[2020-08-20] MEDS: cyanocobalamin 1,000 mcg/mL SDV 1000 MCG SUBCUT (14:27)
[2020-08-20] MEDS: leuprolide 22.5 mg Kit IM (14:28)
[2020-08-20 14:41] LABS: Basophils # 0.1 10^3/uL (0.0-0.1); Basophils % 0.6 %; Eosinophils # 0.4 10^3/uL (0.0-0.8); Hematocrit 41.6 % (42.0-52.0); Hemoglobin 13.5 g/dL (11.7-16.6); Lymphocytes # 2.8 10^3/uL (0.8-4.8); Lymphocytes % 30.8 %; Mean Corpuscular HGB Conc 32.5 g/dL (30.0-36.0); Mean Corpuscular Hemoglobin 27.7 pg (28.0-34.0); Mean Corpuscular Volume 85.4 fL (80-94); Mean Platelet Volume 11.2 fL (7.4-10.4); Monocytes # 0.6 10^3/uL (0.2-0.9); Monocytes % 6.3 %; Neutrophils # 5.27 10^3/uL (1.8-7.7); Nucleated Red Blood Cells % 0 %; Platelet Count 210 10^3/cmm (130-400); Red Blood Count 4.87 10^6/uL (4.1-5.3); Red Cell Distribution Width 13.1 % (12.1-15.1); White Blood Count 9.1 10^3/uL (4.0-10.0)
[2020-08-20 15:42] LABS: Alanine Aminotransferase 11 U/L (0-41); Albumin Level 4.2 g/dL (3.5-5.2); Alkaline Phosphatase 112 IU/L (40-130); Anion Gap 15.4 (5-19); Aspartate Amino Transferase 15 U/L (0-40); Blood Urea Nitrogen 13 mg/dL (8-23); Calcium 8.8 mg/dL (8.5-10.5); Carbon Dioxide 26 mmol/L (22-29); Chloride 101 mmol/L (98-107); Globulin 3.1 g/dL (1.3-4.6); Glomerular Filtration Rate 97.6 mL/min (90-130); Glucose 113 mg/dL (65-115); Osmolality Calculated 289 mOsm/kg (285-295); Potassium 3.4 mmol/L (3.5-5.1); Sodium 139 mmol/L (136-145); Total Bilirubin 0.2 mg/dL (0.15-1.2); Total Protein 7.3 g/dL (6.6-8.7)
--- NOTE | 2020-08-24 09:02 | ONC FU_ITS ---
Dr. Heath Patient Follow-Up Note Patient: Shiva Cyr Unit #: [id number]: 1955 Dicatated By: Italo Heath M.D.Date of Visit:Aug 20, 2020 Onc Med Follow-up/Prog Note Chief Complaint: Prostate cancer. 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 In May 2015 he developed urinary retention. He apparently was then seen by a urologist in [place]. According to Dr. Olivo's note, they had suspected prostate cancer based on physical findings and elevated PSA level at 59 ng/mL. He declined biopsy or treatment. He was given a prescription for tamsulosin, but he stopped taking it because some of his joint pain got worse. In July 2016 he was admitted to the hospital with urinary retention. He underwent cystoscopy with transurethral resection/vaporization of the prostate on 07/27/2016. He was noted to have a fixed prostate gland with grossly abnormal architecture. There was evidence of early invasion into the right trigone of the bladder. Pathology showed prostatic adenocarcinoma, [place] score 4+4. Tumor was noted to infiltrate 90% of the submitted tissues. His PSA level at that time was 124 ng/mL. Renal function was borderline with BUN 11 and creatinine 1.3 mg/dL. The alkaline phosphatase was normal. He had further evaluation with bone scan on 08/05/2016. It showed no evidence of metastatic disease. Contrast enhanced CT evidence/pelvis at that time showed markedly enlarged prostate with enhancement of the seminal vesicles suggestive of neoplastic invasion. The base and posterior inferior aspect of the bladder wall also appeared likely invaded. There was diffuse mild thickening of the remainder of the bladder wall. There was mild right hydronephrosis and moderate right ureterectasis likely secondary to partial obstruction of the right ureterovesical junction from neoplastic bladder base invasion. There were multiple enlarged lymph nodes including the iliac regions, left greater than right, and left para-aortic retroperitoneum. The largest node was a left internal iliac region node measuring 4.5 x 2.3 x 2.9 cm. External left iliac nodes measure up to 3.3 x 3.6 x 2.9 cm. He did have follow-up visit with Dr. Olivo at that time. He was recommended to begin androgen deprivation therapy. I had seen him initially on 10/29/2016. At that point he was still having some swelling in his left leg. He was voiding better following the surgery in July. He did agree to proceed with the androgen deprivation therapy, and initially he started treatment with bicalutamide 50 mg daily. He received his initial injection of Depo-Lupron on 11/24/2016. His PSA level at that point had declined to 30.00 ng/mL compared to 124 ng/mL in July 2016. He had repeat laboratory studies on 12/23/2016. His PSA level at that point had declined to 7.58 ng/mL. At the 2017 ASCO meeting the results of a clinical trial were reported which indicated survival benefit with upfront use of abiraterone in combination with androgen deprivation compared to initiation of abiraterone with evidence of castrate resistance. As such, he was offered the option to begin treatment with Zytiga, which we were able to obtain for him under the liner replacer's patient assistance program. However, after reviewing the potential side effects, he was reluctant to take the medication. He then continued treatment with Depo-Lupron. As of 02/15/2017 his PSA level had declined to 1.97 ng/mL. He received a second injection of Depo-Lupron 22.5 mg on 02/23/2017. On his follow-up visit on 05/26/2017 his PSA had further declined to 0.68 ng/mL. However, at that point he opted to stop his treatment due to side effects, mainly hot flashes and fatigue. On his follow-up visit in August 2017 his PSA level had increased to 12.20 ng/mL, and he did agree to restart the Depo-Lupron. As of 12/15/2017 his PSA level had declined to 0.55 ng/mL. On his follow-up visit in March 2018 he had opted to stop treatment again. At that time he was found to have a low B12 level at 138 pg/mL, and he then started B12 replacement. As of his follow-up visit on 06/26/2018 there was a significant increase in the PSA level, up to 5.96 ng/mL. He then restarted Depo-Lupron. At his follow-up visit on 09/28/2018 the PSA had declined to 0.59 ng/mL. He continued treatment with Depo-Lupron. His medical illnesses, in addition to prostate cancer, include hypertension, degenerative arthritis, B12 deficiency, and obstructive sleep apnea. On 09/29/2017 he underwent repair of left inguinal hernia. He is a nonsmoker. INTERIM HISTORY: During followup he had continued his Depo-Lupron injections every 3 months. As of July 2019 his PSA level had increased slightly, to 1.26 ng/mL compared to 0.78 ng/mL in April and to 0.64 ng/mL in December. During this time there was no change in his clinical status. In October 2019 the PSA had further increased to 3.49 ng/mL. He continued androgen deprivation with Depo-Lupron. In January there was a slight further increase in the PSA to 4.71 ng/mL. Restaging CT abdomen/pelvis on 01/21/2020 showed smaller prostate compared to the 2017 study and no evidence of pararectal or retroperitoneal lymphadenopathy. Bone scan showed degenerative changes in the knees with no evidence of metastatic disease. For reasons unclear to me he opted not to take his scheduled Depo-Lupron injection. At his follow-up visit on 04/16/2020 the PSA had increased to 19.930 ng/mL, and he did restart the Depo-Lupron. He is seen for a follow-up visit. He has been feeling okay, though he continues to have significant fatigue. His ECOG score is 2. He has good appetite. He has not had fever. He still has hot flashes, but not as strong. He has no shortness of breath, cough, or chest pain. He sometimes has nausea. He has been having constipation, and he has been having abdominal bloating, especially in the evenings. His bladder function is the same. He has joint pain and he also has back pain. He sometimes has headache. He has no focal neurologic symptoms. Medications: amLODIPine Besylate 1 Tablet (of 2.5 mg) Oral b.i.d., Lisinopril 1 Tablet (of 20 mg) Oral daily Allergies: No Known Allergies. Vital Signs: Performed on Aug 20, 2020 15:56 Height - 72.00 in Weight - 189.0 lbs (HIGH) BSA - 2.08 sq.m BMI - 25.63 Temperature - 97.6 F (LOW) Pulse - 86 /min Respiration - 17 /min BP - 160/110 mm(hg) (HIGH) O2 Sat - 98 % Pain - 2 Physical Examination: Constitutional - He looks pretty good generally, Eyes - Sclerae nonicteric. Conjunctivae clear, ENMT - No lesions noted in the oral cavity, Hematologic/Lymphatic - No cervical, clavicular, or axillary adenopathy, Respiratory - Lungs sound clear, Cardiovascular - Heart rhythm is regular. There is no murmur, gallop or rub noted, Abdomen - Soft. Liver and spleen are not enlarged. There is no abdominal mass or ascites noted. There is no inguinal denopathy noted, Extremities - There is mild swelling of the left leg, Neurologic - No focal neurologic deficits noted. Lab/Imaging: Test performed on Aug 20, 2020 14:12 Sodium 139 mmol/L Potassium 3.4 mmol/L Chloride 101 mmol/L CO2 26 mmol/L Anion Gap 15.4 BUN 13 mg/dL Creatinine 0.8 mg/dL Cr Clearance (Est) 114.60 mL/min eGFR 97.6 mL/min Glucose 113 mg/dL Osmolality - Calculated 289 mOsm/kg Calcium 8.8 mg/dL Protein, Total 7.3 g/dL Albumin 4.2 g/dL Globulin 3.1 g/dL Bilirubin, Total 0.2 mg/dL ALT (SGPT) 11 U/L AST (SGOT) 15 U/L Alkaline Phosphatase 112 IU/L WBC 9.1 10 3/uL RBC 4.87 10 6/uL HGB 13.5 g/dL HCT 41.6 % MCV 85.4 fL MCH 27.7 pg MCHC 32.5 g/dL RDW 13.1 % Platelet Count 210 10 3/cmm MPV 11.2 fL Neutrophils 5.27 10 3/uL Lymphocytes 2.8 10 3/uL Monocytes 0.6 10 3/uL Eosinophils 0.4 10 3/uL Basophils 0.1 10 3/uL Neutrophil % 58.0 % Lymphocyte % 30.8 % Monocyte % 6.3 % Eosinophil % 4.0 % Basophils % 0.6 % NRBC % 0 % PSA 19.070 ng/mL Historic Problem List: 1. Sawyer score 8 adenocarcinoma of the prostate, by clinical evaluation stage IV (T4, N1, M1a). It was clinically evident by May 2015 and confirmed pathologically in July 2016. He had associated urinary retention and mild right hydronephrosis. 2. He has been on intermittent androgen deprivation therapy following transient urethral resection/vaporization of the prostate on 07/27/2016. 3. Hypertension. 4. Degenerative arthritis. 5. Obstructive sleep apnea, on CPAP. 6. B12 deficiency, on replacement therapy. Problems Addressed with this Encounter and Plan: 1. [place] score 8 adenocarcinoma of the prostate, by stage IV (T4, N1, M1a). It was clinically evident by May 2015 and confirmed pathologically in July 2016. He began androgen deprivation therapy in October 2015. He has had a good response to ADT, but he has opted to have treatment intermittently due to side effects. Beginning in April 2019 there was a very gradual but progressive increase in his PSA level. During follow-up he continued to have fairly limited activity tolerance, but his overall clinical status had remained stable. As of January 2020 his PSA level had increased to 4.71 ng/mL. His restaging with CT abdomen/pelvis and bone scan showed no evidence of metastatic disease. For reasons unclear to me he opted not to take his scheduled Depo-Lupron. As of April 2020 his PSA had further increased to 19.93 ng/mL. He appeared stable clinically, and at that point he continued treatment with DepoLupron. Since restarting the Depo-Lupron in April, his PSA has stabilized. He continues to have significant fatigue and limited activity tolerance. He recently has been having constipation and abdominal bloating as well as some nausea and acid reflux symptoms. He otherwise appears stable clinically. He will continue androgen deprivation therapy with leuprolide 22.5 mg by intramuscular injection. I will have him start Protonix 40 mg daily, and he also is advised to try avoiding milk products. He will be scheduled for a follow-up visit in 3 months. 2. He has B12 deficiency, for which he continues B12 replacement therapy. Signed By: Italo Heath M.D. <<Signature on File>>
== END 2020-08-20 14:00 | disposition home or self-care (01) ==
PROVIDERS: PCP Family Medicine; Visit Provider Internal Medicine Medical Oncology
DX: C61 Malignant neoplasm of prostate (principal); C77.8 Secondary and unspecified malignant neoplasm of lymph nodes of multiple regions; D51.9 Vitamin B12 deficiency anemia, unspecified; I10 Essential (primary) hypertension; M19.90 Unspecified osteoarthritis, unspecified site; G47.33 Obstructive sleep apnea (adult) (pediatric); Z79.899 Other long term (current) drug therapy
CPT/HCPCS: 36415; 80053; 84153; 85025; 96372; 96402; 99214; J3420; J9217

== ENCOUNTER 2020-09-17 12:54 | Outpatient (CLI) | payer MEDICAID, SELFPAY ==
[2020-09-17] MEDS: cyanocobalamin 1,000 mcg/mL SDV 1000 MCG SUBCUT (13:15)
== END 2020-09-17 12:55 | disposition home or self-care (01) ==
PROVIDERS: PCP Family Medicine; Visit Provider Internal Medicine Medical Oncology
DX: C61 Malignant neoplasm of prostate (principal); C77.8 Secondary and unspecified malignant neoplasm of lymph nodes of multiple regions; D51.9 Vitamin B12 deficiency anemia, unspecified
CPT/HCPCS: 96372; J3420

== ENCOUNTER 2020-11-19 09:08 | Outpatient (CLI) | payer MEDICAID, SELFPAY ==
--- NOTE | 2020-11-19 12:49 | ONC FU_ITS ---
Dr. Heath Patient Follow-Up Note Patient: Shiva Cyr Unit #: [id number]: 1955 Dicatated By: Italo Heath M.D.Date of Visit:Nov 19, 2020 Onc Med Follow-up/Prog Note Chief Complaint: Prostate cancer. 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 In May 2015 he developed urinary retention. He apparently was then seen by a urologist in [place]. According to Dr. lOivo's note, they had suspected prostate cancer based on physical findings and elevated PSA level at 59 ng/mL. He declined biopsy or treatment. He was given a prescription for tamsulosin, but he stopped taking it because some of his joint pain got worse. In July 2016 he was admitted to the hospital with urinary retention. He underwent cystoscopy with transurethral resection/vaporization of the prostate on 07/27/2016. He was noted to have a fixed prostate gland with grossly abnormal architecture. There was evidence of early invasion into the right trigone of the bladder. Pathology showed prostatic adenocarcinoma, [place] score 4+4. Tumor was noted to infiltrate 90% of the submitted tissues. His PSA level at that time was 124 ng/mL. Renal function was borderline with BUN 11 and creatinine 1.3 mg/dL. The alkaline phosphatase was normal. He had further evaluation with bone scan on 08/05/2016. It showed no evidence of metastatic disease. Contrast enhanced CT evidence/pelvis at that time showed markedly enlarged prostate with enhancement of the seminal vesicles suggestive of neoplastic invasion. The base and posterior inferior aspect of the bladder wall also appeared likely invaded. There was diffuse mild thickening of the remainder of the bladder wall. There was mild right hydronephrosis and moderate right ureterectasis likely secondary to partial obstruction of the right ureterovesical junction from neoplastic bladder base invasion. There were multiple enlarged lymph nodes including the iliac regions, left greater than right, and left para-aortic retroperitoneum. The largest node was a left internal iliac region node measuring 4.5 x 2.3 x 2.9 cm. External left iliac nodes measure up to 3.3 x 3.6 x 2.9 cm. He did have follow-up visit with Dr. Olivo at that time. He was recommended to begin androgen deprivation therapy. I had seen him initially on 10/29/2016. At that point he was still having some swelling in his left leg. He was voiding better following the surgery in July. He did agree to proceed with the androgen deprivation therapy, and initially he started treatment with bicalutamide 50 mg daily. He received his initial injection of Depo-Lupron on 11/24/2016. His PSA level at that point had declined to 30.00 ng/mL compared to 124 ng/mL in July 2016. He had repeat laboratory studies on 12/23/2016. His PSA level at that point had declined to 7.58 ng/mL. At the 2017 ASCO meeting the results of a clinical trial were reported which indicated survival benefit with upfront use of abiraterone in combination with androgen deprivation compared to initiation of abiraterone with evidence of castrate resistance. As such, he was offered the option to begin treatment with Zytiga, which we were able to obtain for him under the [employer] patient assistance program. However, after reviewing the potential side effects, he was reluctant to take the medication. He then continued treatment with Depo-Lupron. As of 02/15/2017 his PSA level had declined to 1.97 ng/mL. He received a second injection of Depo-Lupron 22.5 mg on 02/23/2017. On his follow-up visit on 05/26/2017 his PSA had further declined to 0.68 ng/mL. However, at that point he opted to stop his treatment due to side effects, mainly hot flashes and fatigue. On his follow-up visit in August 2017 his PSA level had increased to 12.20 ng/mL, and he did agree to restart the Depo-Lupron. As of 12/15/2017 his PSA level had declined to 0.55 ng/mL. On his follow-up visit in March 2018 he had opted to stop treatment again. At that time he was found to have a low B12 level at 138 pg/mL, and he then started B12 replacement. As of his follow-up visit on 06/26/2018 there was a significant increase in the PSA level, up to 5.96 ng/mL. He then restarted Depo-Lupron. At his follow-up visit on 09/28/2018 the PSA had declined to 0.59 ng/mL. He continued treatment with Depo-Lupron. His medical illnesses, in addition to prostate cancer, include hypertension, degenerative arthritis, B12 deficiency, and obstructive sleep apnea. On 09/29/2017 he underwent repair of left inguinal hernia. He is a nonsmoker. INTERIM HISTORY: During followup he had continued his Depo-Lupron injections every 3 months. As of July 2019 his PSA level had increased slightly, to 1.26 ng/mL compared to 0.78 ng/mL in April and to 0.64 ng/mL in December. During this time there was no change in his clinical status. In October 2019 the PSA had further increased to 3.49 ng/mL. He continued androgen deprivation with Depo-Lupron. In January there was a slight further increase in the PSA to 4.71 ng/mL. Restaging CT abdomen/pelvis on 01/21/2020 showed smaller prostate compared to the 2017 study and no evidence of pararectal or retroperitoneal lymphadenopathy. Bone scan showed degenerative changes in the knees with no evidence of metastatic disease. For reasons unclear to me he opted not to take his scheduled Depo-Lupron injection. At his follow-up visit on 04/16/2020 the PSA had increased to 19.930 ng/mL, and he did restart the Depo-Lupron. At his follow-up visit on 08/20/2020 the PSA was stable at 19.070 ng/mL. He continued treatment with Depo-Lupron. He is seen for a follow-up visit. He is feeling about the same. He complains that his legs feel weak and he continues to have limited activity. ECOG score is 2. He has good appetite. He does not have fever. He does have hot flashes and sweating. In association with his hot flashes, he tends to have some shortness of breath and he says his heart does not feel right. His breathing is otherwise okay, and he has no other cardiac symptoms. He continues to have some abdominal bloating, but not as much. Bowel function remains adequate. He has been voiding more frequently. He has joint pain, mainly in his wrists and knees. He also has pain in both legs. He sometimes has headache. He does have some disequilibrium. He sometimes has numbness/tingling. Medications: amLODIPine Besylate 1 Tablet (of 2.5 mg) Oral b.i.d., amLODIPine Besylate (10 mg) Tablet Oral b.i.d., Lisinopril 1 Tablet (of 20 mg) Oral daily, Valsartan (80 mg) Tablet Oral b.i.d. Allergies: No Known Allergies. Vital Signs: Performed on Nov 19, 2020 11:02 Height - 72.00 in Weight - 185.6 lbs (LOW) BSA - 2.06 sq.m BMI - 25.17 Temperature - 98.2 F (LOW) Pulse - 87 /min Respiration - 18 /min BP - 187/94 mm(hg) (HIGH) O2 Sat - 98 % Pain - 4 Fatigue - 4 Physical Examination: Constitutional - He looks pretty good generally, Eyes - Sclerae nonicteric. Conjunctivae clear, ENMT - No lesions noted in the oral cavity, Hematologic/Lymphatic - No cervical, clavicular, or axillary adenopathy, Respiratory - Lungs sound clear, Cardiovascular - Heart rhythm is regular. There is no murmur, gallop or rub noted, Abdomen - Soft. Liver and spleen are not enlarged. There is no abdominal mass or ascites noted. There is a left inguinal hernia. There is no inguinal denopathy noted, Extremities - There is mild swelling of the left leg, Neurologic - No focal neurologic deficits noted. Lab/Imaging: Test performed on Nov 19, 2020 09:16 PSA 45.020 ng/mL Problem List: 1. [place] score 8 adenocarcinoma of the prostate, by clinical evaluation stage IV (T4, N1, M1a). It was clinically evident by May 2015 and confirmed pathologically in July 2016. He had associated urinary retention and mild right hydronephrosis. 2. He has been on intermittent androgen deprivation therapy following transient urethral resection/vaporization of the prostate on 07/27/2016. 3. Hypertension. 4. Degenerative arthritis. 5. Obstructive sleep apnea, on CPAP. 6. B12 deficiency, on replacement therapy. Problems Addressed with this Encounter and Plan: 1. Patient with sawyer score 8 adenocarcinoma of the prostate, by stage IV (T4, N1, M1a). It was clinically evident by May 2015 and confirmed pathologically in July 2016. He began androgen deprivation therapy in October 2015. He had a good response to ADT, but he had opted to have treatment intermittently due to side effects. Beginning in April 2019 there was a very gradual but progressive increase in his PSA level. During follow-up he continued to have fairly limited activity tolerance, but his overall clinical status had remained stable. As of January 2020 his PSA level had increased to 4.71 ng/mL. His restaging with CT abdomen/pelvis and bone scan showed no evidence of metastatic disease. For reasons unclear to me he opted not to take his scheduled Depo-Lupron. As of April 2020 his PSA had further increased to 19.93 ng/mL. He appeared stable clinically, and at that point he restarted treatment with DepoLupron. As of his follow-up in August 2020 his PSA was stable at 19.070 ng/mL. He continued treatment with Depo-Lupron. Unfortunately, there is now been further increase in the PSA to 45.020 ng/mL. His overall clinical status appears stable. With the increase in his PSA level, he is advised now to begin antiandrogen therapy along with the Depo-Lupron. I will have him start enzalutamide 160 mg daily, but that will be subject to verification of insurance coverage and availability of the medication. We discussed the fact that common side effects will include fatigue and increase in hot flashes. Prior to starting treatment he will have additional laboratory studies to include CBC and CMP along with repeat PSA and testosterone levels. He also will be scheduled for restaging CT abdomen/pelvis. He will have a 1-month interval follow-up visit after starting treatment. In the meantime, I also am going to request a next generation sequencing study on his initial biopsy. 2. He has B12 deficiency, for which he continues B12 replacement therapy. Signed By: Italo Heath M.D. <<Signature on File>>
== END 2020-11-19 09:09 | disposition home or self-care (01) ==
LOC: ONCMED 09:10
PROVIDERS: PCP Family Medicine; Visit Provider Internal Medicine Medical Oncology
DX: C61 Malignant neoplasm of prostate (principal); R33.9 Retention of urine, unspecified; N13.30 Unspecified hydronephrosis; I10 Essential (primary) hypertension; M19.90 Unspecified osteoarthritis, unspecified site; G47.33 Obstructive sleep apnea (adult) (pediatric); D51.9 Vitamin B12 deficiency anemia, unspecified; Z79.818 Long term (current) use of other agents affecting estrogen receptors and estrogen levels; Z79.899 Other long term (current) drug therapy
CPT/HCPCS: 84153; 99214

== ENCOUNTER 2020-11-20 06:19 | Outpatient (CLI) | payer MEDICAID, SELFPAY ==
[2020-11-20] MEDS: cyanocobalamin 1,000 mcg/mL SDV 1000 MCG SUBCUT (14:50)
[2020-11-20] MEDS: leuprolide 22.5 mg Kit IM (14:50)
== END 2020-11-20 06:20 | disposition home or self-care (01) ==
LOC: ONCMED 06:21
PROVIDERS: PCP Family Medicine; Visit Provider Nurse Practitioner
DX: C61 Malignant neoplasm of prostate (principal); C77.8 Secondary and unspecified malignant neoplasm of lymph nodes of multiple regions; E53.8 Deficiency of other specified B group vitamins; Z79.818 Long term (current) use of other agents affecting estrogen receptors and estrogen levels
CPT/HCPCS: 96372; 96402; J3420; J9217

== ENCOUNTER 2020-12-02 09:11 | Outpatient (CLI) | payer MEDICAID, SELFPAY ==
--- NOTE | 2020-12-02 09:18 | CT_ITS ---
WS: [id number] Exam: CT abdomen pelvis w con* [id number] Date/Time of Exam: 12/02/2020 9:46 AM Reason For Exam: METASTATIC PROSTATE CANCER DLP: 1128.[address] scans at [facility] use at least one of these dose optimization techniques: automat ed exposure control; mA and/or kV adjustment per patient size (includes targeted exams where dose is matched to clinical indication); or iterative reconstruction. 100 mL of nonionic contrast administere d intravenously. Compared to the last exam 01/21/2020. Lower lung zones are clear. Subcentimeter cyst in the anterior aspect the right hepatic lobe. The adelina er is otherwise normal in appearance. No calcified stones in the gallbladder. The abdominal aorta is normal in caliber. The stomach, spleen and pancreas appear normal. Normal adrenal glands and kidneys. The portal vein and IVC are patent. Small bowel loops are not dilated. No free air or lymphadenopath y. Normal appendix visualized. There are sigmoid diverticulosis but no sign of acute diverticulitis. No pelvic mass. Enlarged lymph node seen along the left pelvic sidewall that measures 2.2 cm at great est short axis dimension. There is also an enlarged node just medial to the left common femoral vein that measures 1.6 cm at greatest diameter. Additional enlarged left inguinal nodes are identified. Th e largest about 1.2 cm at greatest diameter. Urinary bladder is intact. Lobulated prostate gland note d with heterogeneous attenuation unchanged in appearance. No destructive bone lesions are seen. Small fat filled periumbilical hernia. CT/CT abdomen pelvis w con* [id number] IMPRESSION: 1. New lymphadenopathy involving the left pelvic sidewall and left inguinal reg ion as detailed above. 2. Sigmoid diverticulosis. 3. Lobulated prostate gland with heterogeneous density. The appearance is uncha nged. 4. No osteolytic or osteoblastic bone disease evident.
[2020-12-02] MEDS: iohexol 300 mg/mL 50 mL Btl PO (09:47)
[2020-12-02 10:54] LABS: Blood Urea Nitrogen 11 mg/dL (8-23); Glomerular Filtration Rate 97.6 mL/min (90-130)
[2020-12-02] MEDS: iohexol 300 mg/mL 100 mL Btl IV (11:04)
== END 2020-12-02 09:12 | disposition home or self-care (01) ==
LOC: RADWPI 11:06 → ONCMED 12:30
PROVIDERS: PCP Family Medicine; Visit Provider Internal Medicine Medical Oncology
DX: C61 Malignant neoplasm of prostate (principal); C77.8 Secondary and unspecified malignant neoplasm of lymph nodes of multiple regions; R33.9 Retention of urine, unspecified; N13.30 Unspecified hydronephrosis; I10 Essential (primary) hypertension; G47.33 Obstructive sleep apnea (adult) (pediatric); D51.9 Vitamin B12 deficiency anemia, unspecified; K57.30 Diverticulosis of large intestine without perforation or abscess without bleeding; Z79.818 Long term (current) use of other agents affecting estrogen receptors and estrogen levels; Z79.899 Other long term (current) drug therapy
CPT/HCPCS: 74177; 82565; 84520; Q9967

== ENCOUNTER 2020-12-05 06:08 | Outpatient (CLI) | payer MEDICAID, SELFPAY ==
--- NOTE | 2020-12-08 07:19 | ONC FU_ITS ---
Dr. Heath Patient Follow-Up Note Patient: Shiva Cyr Unit #: [id number]: 1955 Dicatated By: Italo Heath M.D.Date of Visit:Dec 05, 2020 Onc Med Follow-up/Prog Note Chief Complaint: Prostate cancer. 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 In May 2015 he developed urinary retention. He apparently was then seen by a urologist in [place]. According to Dr. Olivo's note, they had suspected prostate cancer based on physical findings and elevated PSA level at 59 ng/mL. He declined biopsy or treatment. He was given a prescription for tamsulosin, but he stopped taking it because some of his joint pain got worse. In July 2016 he was admitted to the hospital with urinary retention. He underwent cystoscopy with transurethral resection/vaporization of the prostate on 07/27/2016. He was noted to have a fixed prostate gland with grossly abnormal architecture. There was evidence of early invasion into the right trigone of the bladder. Pathology showed prostatic adenocarcinoma, Rosamond score 4+4. Tumor was noted to infiltrate 90% of the submitted tissues. His PSA level at that time was 124 ng/mL. Renal function was borderline with BUN 11 and creatinine 1.3 mg/dL. The alkaline phosphatase was normal. He had further evaluation with bone scan on 08/05/2016. It showed no evidence of metastatic disease. Contrast enhanced CT evidence/pelvis at that time showed markedly enlarged prostate with enhancement of the seminal vesicles suggestive of neoplastic invasion. The base and posterior inferior aspect of the bladder wall also appeared likely invaded. There was diffuse mild thickening of the remainder of the bladder wall. There was mild right hydronephrosis and moderate right ureterectasis likely secondary to partial obstruction of the right ureterovesical junction from neoplastic bladder base invasion. There were multiple enlarged lymph nodes including the iliac regions, left greater than right, and left para-aortic retroperitoneum. The largest node was a left internal iliac region node measuring 4.5 x 2.3 x 2.9 cm. External left iliac nodes measure up to 3.3 x 3.6 x 2.9 cm. He did have follow-up visit with Dr. Olivo at that time. He was recommended to begin androgen deprivation therapy. I had seen him initially on 10/29/2016. At that point he was still having some swelling in his left leg. He was voiding better following the surgery in July. He did agree to proceed with the androgen deprivation therapy, and initially he started treatment with bicalutamide 50 mg daily. He received his initial injection of Depo-Lupron on 11/24/2016. His PSA level at that point had declined to 30.00 ng/mL compared to 124 ng/mL in July 2016. He had repeat laboratory studies on 12/23/2016. His PSA level at that point had declined to 7.58 ng/mL. At the 2017 ASCO meeting the results of a clinical trial were reported which indicated survival benefit with upfront use of abiraterone in combination with androgen deprivation compared to initiation of abiraterone with evidence of castrate resistance. As such, he was offered the option to begin treatment with Zytiga, which we were able to obtain for him under the [employer] patient assistance program. However, after reviewing the potential side effects, he was reluctant to take the medication. He then continued treatment with Depo-Lupron. As of 02/15/2017 his PSA level had declined to 1.97 ng/mL. He received a second injection of Depo-Lupron 22.5 mg on 02/23/2017. On his follow-up visit on 05/26/2017 his PSA had further declined to 0.68 ng/mL. However, at that point he opted to stop his treatment due to side effects, mainly hot flashes and fatigue. On his follow-up visit in August 2017 his PSA level had increased to 12.20 ng/mL, and he did agree to restart the Depo-Lupron. As of 12/15/2017 his PSA level had declined to 0.55 ng/mL. On his follow-up visit in March 2018 he had opted to stop treatment again. At that time he was found to have a low B12 level at 138 pg/mL, and he then started B12 replacement. As of his follow-up visit on 06/26/2018 there was a significant increase in the PSA level, up to 5.96 ng/mL. He then restarted Depo-Lupron. At his follow-up visit on 09/28/2018 the PSA had declined to 0.59 ng/mL. He continued treatment with Depo-Lupron. His medical illnesses, in addition to prostate cancer, include hypertension, degenerative arthritis, B12 deficiency, and obstructive sleep apnea. On 09/29/2017 he underwent repair of left inguinal hernia. He is a nonsmoker. INTERIM HISTORY: During followup he had continued his Depo-Lupron injections every 3 months. As of July 2019 his PSA level had increased slightly, to 1.26 ng/mL compared to 0.78 ng/mL in April and to 0.64 ng/mL in December. During this time there was no change in his clinical status. In October 2019 the PSA had further increased to 3.49 ng/mL. He continued androgen deprivation with Depo-Lupron. In January there was a slight further increase in the PSA to 4.71 ng/mL. Restaging CT abdomen/pelvis on 01/21/2020 showed smaller prostate compared to the 2017 study and no evidence of pararectal or retroperitoneal lymphadenopathy. Bone scan showed degenerative changes in the knees with no evidence of metastatic disease. For reasons unclear to me he opted not to take his scheduled Depo-Lupron injection. At his follow-up visit on 04/16/2020 the PSA had increased to 19.930 ng/mL, and he did restart the Depo-Lupron. At his follow-up visit on 08/20/2020 the PSA was stable at 19.070 ng/mL. He continued treatment with Depo-Lupron. At his follow-up visit on 11/19/2020 there was a significant increase in the PSA level, to 45.020 ng/mL. He was given his scheduled Depo-Lupron injection, but at that point he was scheduled for restaging CT abdomen/pelvis. He also was recommended to begin antiandrogen therapy with enzalutamide. He returns now to review his CT scans and to discuss his further management. He does have significant fatigue, which has been ongoing complaint throughout his treatment. He also has treatment related hot flashes and he has had some persistent swelling in his left leg. He has some mild joint pain, but he does not have bone pain which would be suspicious for metastatic disease. He has not yet started the enzalutamide, as the application for the medication has been in process. Medications: amLODIPine Besylate 1 Tablet (of 2.5 mg) Oral b.i.d., amLODIPine Besylate (10 mg) Tablet Oral b.i.d., Lisinopril 1 Tablet (of 20 mg) Oral daily, Valsartan (80 mg) Tablet Oral b.i.d. Allergies: No Known Allergies. Vital Signs: Performed on Dec 05, 2020 09:38 Height - 72.00 in Weight - 184.6 lbs (LOW) BSA - 2.06 sq.m BMI - 25.04 Temperature - 98.1 F (LOW) Pulse - 84 /min Respiration - 17 /min BP - 187/102 mm(hg) (HIGH) O2 Sat - 98 % Pain - 3 Lab/Imaging: Test performed on Nov 19, 2020 09:16 PSA 45.020 ng/mL Problem List: 1. Rosamond score 8 adenocarcinoma of the prostate, by clinical evaluation stage IV (T4, N1, M1a). It was clinically evident by May 2015 and confirmed pathologically in July 2016. He had associated urinary retention and mild right hydronephrosis. 2. He has been on intermittent androgen deprivation therapy following transient urethral resection/vaporization of the prostate on 07/27/2016. 3. Hypertension. 4. Degenerative arthritis. 5. Obstructive sleep apnea, on CPAP. 6. B12 deficiency, on replacement therapy. Problems Addressed with this Encounter and Plan: Patient with sawyer score 8 adenocarcinoma of the prostate, by stage IV (T4, N1, M1a). It was clinically evident by May 2015 and confirmed pathologically in July 2016. He began androgen deprivation therapy in October 2015. He had a good response to ADT, but he had opted to have treatment intermittently due to side effects. Beginning in April 2019 there was a very gradual but progressive increase in his PSA level. During follow-up he continued to have fairly limited activity tolerance, but his overall clinical status had remained stable. As of January 2020 his PSA level had increased to 4.71 ng/mL. His restaging with CT abdomen/pelvis and bone scan showed no evidence of metastatic disease. For reasons unclear to me he opted not to take his scheduled Depo-Lupron. As of April 2020 his PSA had further increased to 19.93 ng/mL. He appeared stable clinically, and at that point he restarted treatment with DepoLupron. As of his follow-up in August 2020 his PSA was stable at 19.070 ng/mL. He continued treatment with Depo-Lupron. As of his follow-up visit on 11/19/2020 there was a significant further increase in the PSA to 45.020 ng/mL. His overall clinical status appeared stable. His restaging CT abdomen/pelvis showed new lymphadenopathy involving the left pelvic sidewall and left inguinal region compared to the prior study from January 2020. Those findings and the CT images were reviewed with the patient and his daughter. As he clearly is showing disease progression, he is recommended to begin antiandrogen therapy. I had initially put in a request to start treatment with enzalutamide, but after doing some research on his own, he preferred to try darolutamide instead. As such, he will start treatment with darolutamide 600 mg twice daily soon we can get the medication available for him. He will have a 1-month interval follow-up visit. Signed By: Italo Heath M.D. <<Signature on File>>
== END 2020-12-05 06:09 | disposition home or self-care (01) ==
LOC: ONCMED 06:09
PROVIDERS: PCP Family Medicine; Visit Provider Internal Medicine Medical Oncology
DX: C61 Malignant neoplasm of prostate (principal); R33.9 Retention of urine, unspecified; N13.30 Unspecified hydronephrosis; I10 Essential (primary) hypertension; M19.90 Unspecified osteoarthritis, unspecified site; G47.33 Obstructive sleep apnea (adult) (pediatric); D51.9 Vitamin B12 deficiency anemia, unspecified; Z79.818 Long term (current) use of other agents affecting estrogen receptors and estrogen levels
CPT/HCPCS: 99214

== ENCOUNTER 2021-05-07 13:58 | Outpatient (CLI) | payer MEDICAID, SELFPAY ==
[2021-05-07 14:47] LABS: Basophils % 0.5 %; Eosinophils # 0.2 10^3/uL (0.0-0.8); Eosinophils % 2.9 %; Hematocrit 38.2 % (42.0-52.0); Hemoglobin 12.5 g/dL (11.7-16.6); Lymphocytes # 2.3 10^3/uL (0.8-4.8); Lymphocytes % 27.4 %; Mean Corpuscular HGB Conc 32.7 g/dL (30.0-36.0); Mean Corpuscular Hemoglobin 28.6 pg (28.0-34.0); Mean Corpuscular Volume 87.4 fl (80-94); Mean Platelet Volume 10.8 fL (7.4-10.4); Monocytes # 0.4 10^3/uL (0.2-0.9); Monocytes % 5.2 %; Neutrophils # 5.29 10^3/uL (1.8-7.7); Neutrophils % 63.8 %; Nucleated Red Blood Cells % 0 %; Platelet Count 204 10^3/cmm (130-400); Red Blood Count 4.37 10^6/uL (4.1-5.3); Red Cell Distribution Width 12.7 % (12.1-15.1); White Blood Count 8.3 10^3/uL (4.0-10.0)
[2021-05-07 15:39] LABS: Alanine Aminotransferase 6 U/L (0-41); Albumin Level 3.8 g/dL (3.5-5.2); Alkaline Phosphatase 80 IU/L (40-130); Anion Gap 14.4 (5-19); Aspartate Amino Transferase 10 U/L (0-40); Blood Urea Nitrogen 18 mg/dL (8-23); Calcium 8.8 mg/dL (8.5-10.5); Carbon Dioxide 23 mmol/L (22-29); Chloride 102 mmol/L (98-107); Globulin 3.1 g/dL (1.3-4.6); Glomerular Filtration Rate 113.9 mL/min (90-130); Glucose 146 mg/dL (65-115); Osmolality Calculated 285 mOsm/kg (285-295); Potassium 4.4 mmol/L (3.5-5.1); Sodium 135 mmol/L (136-145); Total Bilirubin 0.2 mg/dL (0.15-1.2); Total Protein 6.9 g/dL (6.6-8.7)
[2021-05-07] MEDS: leuprolide 22.5 mg Kit IM (16:50)
--- NOTE | 2021-05-07 18:49 | ONC FU_ITS ---
Dr. Heath Patient Follow-Up Note Patient: Shiva Cyr Unit #: [id number]: 1955 Dicatated By: Italo Heath M.D.Date of Visit:May 07, 2021 Onc Med Follow-up/Prog Note Chief Complaint: Prostate cancer. 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 In May 2015 he developed urinary retention. He apparently was then seen by a urologist in [place]. According to Dr. Olivo's note, they had suspected prostate cancer based on physical findings and elevated PSA level at 59 ng/mL. He declined biopsy or treatment. He was given a prescription for tamsulosin, but he stopped taking it because some of his joint pain got worse. In July 2016 he was admitted to the hospital with urinary retention. He underwent cystoscopy with transurethral resection/vaporization of the prostate on 07/27/2016. He was noted to have a fixed prostate gland with grossly abnormal architecture. There was evidence of early invasion into the right trigone of the bladder. Pathology showed prostatic adenocarcinoma, [place]ob[place] score 4+4. Tumor was noted to infiltrate 90% of the submitted tissues. His PSA level at that time was 124 ng/mL. Renal function was borderline with BUN 11 and creatinine 1.3 mg/dL. The alkaline phosphatase was normal. He had further evaluation with bone scan on 08/05/2016. It showed no evidence of metastatic disease. Contrast enhanced CT evidence/pelvis at that time showed markedly enlarged prostate with enhancement of the seminal vesicles suggestive of neoplastic invasion. The base and posterior inferior aspect of the bladder wall also appeared likely invaded. There was diffuse mild thickening of the remainder of the bladder wall. There was mild right hydronephrosis and moderate right ureterectasis likely secondary to partial obstruction of the right ureterovesical junction from neoplastic bladder base invasion. There were multiple enlarged lymph nodes including the iliac regions, left greater than right, and left para-aortic retroperitoneum. The largest node was a left internal iliac region node measuring 4.5 x 2.3 x 2.9 cm. External left iliac nodes measure up to 3.3 x 3.6 x 2.9 cm. He did have follow-up visit with Dr. Olivo at that time. He was recommended to begin androgen deprivation therapy. I had seen him initially on 10/29/2016. At that point he was still having some swelling in his left leg. He was voiding better following the surgery in July. He did agree to proceed with the androgen deprivation therapy, and initially he started treatment with bicalutamide 50 mg daily. He received his initial injection of Depo-Lupron on 11/24/2016. His PSA level at that point had declined to 30.00 ng/mL compared to 124 ng/mL in July 2016. He had repeat laboratory studies on 12/23/2016. His PSA level at that point had declined to 7.58 ng/mL. At the 2017 ASC[employer] meeting the results of a clinical trial were reported which indicated survival benefit with upfront use of abiraterone in combination with androgen deprivation compared to initiation of abiraterone with evidence of castrate resistance. As such, he was offered the option to begin treatment with Zytiga, which we were able to obtain for him under the [employer] patient assistance program. However, after reviewing the potential side effects, he was reluctant to take the medication. He then continued treatment with Depo-Lupron. As of 02/15/2017 his PSA level had declined to 1.97 ng/mL. He received a second injection of Depo-Lupron 22.5 mg on 02/23/2017. On his follow-up visit on 05/26/2017 his PSA had further declined to 0.68 ng/mL. However, at that point he opted to stop his treatment due to side effects, mainly hot flashes and fatigue. On his follow-up visit in August 2017 his PSA level had increased to 12.20 ng/mL, and he did agree to restart the Depo-Lupron. As of 12/15/2017 his PSA level had declined to 0.55 ng/mL. On his follow-up visit in March 2018 he had opted to stop treatment again. At that time he was found to have a low B12 level at 138 pg/mL, and he then started B12 replacement. As of his follow-up visit on 06/26/2018 there was a significant increase in the PSA level, up to 5.96 ng/mL. He then restarted Depo-Lupron. At his follow-up visit on 09/28/2018 the PSA had declined to 0.59 ng/mL. He continued treatment with Depo-Lupron. During followup he had continued his Depo-Lupron injections every 3 months. As of July 2019 his PSA level had increased slightly, to 1.26 ng/mL compared to 0.78 ng/mL in April and to 0.64 ng/mL in December. During this time there was no change in his clinical status. In October 2019 the PSA had further increased to 3.49 ng/mL. He continued androgen deprivation with Depo-Lupron. In January there was a slight further increase in the PSA to 4.71 ng/mL. Restaging CT abdomen/pelvis on 01/21/2020 showed smaller prostate compared to the 2017 study and no evidence of pararectal or retroperitoneal lymphadenopathy. Bone scan showed degenerative changes in the knees with no evidence of metastatic disease. For reasons unclear to me he opted not to take his scheduled Depo-Lupron injection. At his follow-up visit on 04/16/2020 the PSA had increased to 19.930 ng/mL, and he did restart the Depo-Lupron. At his follow-up visit on 08/20/2020 the PSA was stable at 19.070 ng/mL. He continued treatment with Depo-Lupron. His medical illnesses, in addition to prostate cancer, include hypertension, degenerative arthritis, B12 deficiency, and obstructive sleep apnea. On 09/29/2017 he underwent repair of left inguinal hernia. He is a nonsmoker. INTERIM HISTORY: At his follow-up visit on 11/19/2020 there was a significant increase in the PSA level, to 45.020 ng/mL. His restaging CT of the abdomen/pelvis on 12/02/2020 showed new lymphadenopathy including a left pelvic sidewall node measuring 2.2 cm, an enlarged left common femoral vein measuring 1.6 cm, and additional enlarged left inguinal nodes, the largest measuring 1.2 cm. The prostate gland showed heterogeneous attenuation, but unchanged appearance. There were no bony destructive lesions identified. He had continued his scheduled Depo-Lupron injection, and given the CT findings, he then began antiandrogen therapy with enzalutamide 160 mg daily. However, in February he failed to come in for a scheduled Depo-Lupron injection, and about a month ago he stopped the enzalutamide. He is seen for a follow-up visit. He has poor energy and activity tolerance, but it is not any worse. ECOG score is 2. He has good appetite. He has not had fever. He still has some hot flashes, but not as bad. He says his breathing is the same. He does not have cough and he does not complain of chest pain. He sometimes has nausea. He reports having less acid reflux. He sometimes has constipation. He is having more difficulty voiding and more frequent urination. He has having generalized pain. The worst is in his fingers. He does not complain of headache. He sometimes has dizziness. He has no numbness/paresthesia or other focal neurologic symptoms. Medications: amLODIPine Besylate 1 Tablet (of 2.5 mg) Oral b.i.d., amLODIPine Besylate (10 mg) Tablet Oral b.i.d., Lisinopril 1 Tablet (of 20 mg) Oral daily, Valsartan (80 mg) Tablet Oral b.i.d. Allergies: No Known Allergies. Vital Signs: Performed on May 07, 2021 16:00 Height - 72.00 in Weight - 178 lbs (LOW) BSA - 2.03 sq.m BMI - 24.14 Temperature - 97.4 F (LOW) Pulse - 81 /min Respiration - 18 /min BP - 168/98 mm(hg) (HIGH) Pain - 4 Fatigue - 5 Physical Examination: Constitutional - He still looks pretty good generally, Eyes - Sclerae nonicteric. Conjunctivae clear, ENMT - No lesions noted in the oral cavity, Hematologic/Lymphatic - No cervical, clavicular, or axillary adenopathy, Respiratory - Lungs sound clear, Cardiovascular - Heart rhythm is regular. There is no murmur, gallop, or rub noted, Abdomen - Soft. Liver and spleen are not enlarged. There is no abdominal mass or ascites noted. There is a more firm mass in the left inguinal area, now more suggestive of a brianna mass, Extremities - There is chronic swelling of the left leg, Neurologic - No focal neurologic deficits noted. Lab/Imaging: Test performed on May 07, 2021 14:28 Sodium 135 mmol/L Potassium 4.4 mmol/L Chloride 102 mmol/L CO2 23 mmol/L Anion Gap 14.4 BUN 18 mg/dL Creatinine 0.7 mg/dL Cr Clearance (Est) 123.35 mL/min eGFR 113.9 mL/min Glucose 146 mg/dL Osmolality - Calculated 285 mOsm/kg Calcium 8.8 mg/dL Protein, Total 6.9 g/dL Albumin 3.8 g/dL Globulin 3.1 g/dL Bilirubin, Total 0.2 mg/dL ALT (SGPT) 6 U/L AST (SGOT) 10 U/L Alkaline Phosphatase 80 IU/L WBC 8.3 10 3/uL RBC 4.37 10 6/uL HGB 12.5 g/dL HCT 38.2 % MCV 87.4 fl MCH 28.6 pg MCHC 32.7 g/dL RDW 12.7 % Platelet Count 204 10 3/cmm MPV 10.8 fL Neutrophils 5.29 10 3/uL Lymphocytes 2.3 10 3/uL Monocytes 0.4 10 3/uL Eosinophils 0.2 10 3/uL Basophils 0.0 10 3/uL Neutrophil % 63.8 % Lymphocyte % 27.4 % Monocyte % 5.2 % Eosinophil % 2.9 % Basophils % 0.5 % NRBC % 0 % PSA 155.500 ng/mL Problem List: 1. Kevin score 8 adenocarcinoma of the prostate, by clinical evaluation stage IV (T4, N1, M1a). It was clinically evident by May 2015 and confirmed pathologically in July 2016. He had associated urinary retention and mild right hydronephrosis. 2. He has been on intermittent androgen deprivation therapy following transient urethral resection/vaporization of the prostate on 07/27/2016. 3. Hypertension. 4. Degenerative arthritis. 5. Obstructive sleep apnea, on CPAP. 6. B12 deficiency, on replacement therapy. Problems Addressed with this Encounter and Plan: Patient with kevin score 8 adenocarcinoma of the prostate, by stage IV (T4, N1, M1a). It was clinically evident by May 2015 and confirmed pathologically in July 2016. He began androgen deprivation therapy in October 2015. He had a good response to ADT, but he had opted to have treatment intermittently due to side effects. Beginning in April 2019 there was a very gradual but progressive increase in his PSA level. During follow-up he continued to have fairly limited activity tolerance, but his overall clinical status had remained stable. As of January 2020 his PSA level had increased to 4.71 ng/mL. His restaging with CT abdomen/pelvis and bone scan showed no evidence of metastatic disease. For reasons unclear to me he opted not to take his scheduled Depo-Lupron. As of April 2020 his PSA had further increased to 19.93 ng/mL. He appeared stable clinically, and at that point he restarted treatment with DepoLupron. As of his follow-up in August 2020 his PSA was stable at 19.070 ng/mL. He continued treatment with Depo-Lupron. As of his follow-up visit on 11/19/2020 there was a significant further increase in the PSA to 45.020 ng/mL. His overall clinical status appeared stable. His restaging CT abdomen/pelvis showed new lymphadenopathy involving the left pelvic sidewall and left inguinal region compared to the prior study from January 2020. Those findings and the CT images were reviewed with the patient and his daughter. As he clearly is showing disease progression, he was recommended to begin antiandrogen therapy. He had initially expressed a preference for darolutamide, but ultimately he began treatment with enzalutamide 160 mg daily in January 2021. During follow-up he continued to have poor tolerance for androgen deprivation therapy. He then failed to come in for his scheduled Depo-Lupron injection in February and approximately a month ago he also stopped the enzalutamide. There has been a very significant further increase in his PSA level, now to 155 ng/mL. He has an enlarging left inguinal mass, and he also is having more difficulty voiding. I discussed further treatment options. If he were to restart Depo-Lupron in combination with an antiandrogen, I think the best we could hope for is that his disease would not progress as rapidly. I think it is doubtful that he would have a significant response. The other option is to proceed to a trial of chemotherapy with docetaxel/prednisone, and I did review anticipated side effects with the chemotherapy including the potential for nausea/vomiting, alopecia, fatigue, low blood counts, and neuropathy, among others. At this point he still prefers to first try the androgen deprivation therapy, and will be given Depo-Lupron 22.5 mg by intramuscular injection today. I will put in a request for darolutamide 600 mg twice daily, which is his preference for antiandrogen therapy. If that is not available, I will try for abiraterone/prednisone. I will plan to see him for follow-up on a monthly basis. In the meantime, though, I am also going to schedule restaging CT scans of the chest, abdomen, and pelvis. Signed By: Italo Heath M.D. <<Signature on File>>
== END 2021-05-07 13:59 | disposition home or self-care (01) ==
LOC: ONCMED 14:01
PROVIDERS: PCP Family Medicine; Visit Provider Internal Medicine Medical Oncology
DX: C61 Malignant neoplasm of prostate (principal); I10 Essential (primary) hypertension; M19.90 Unspecified osteoarthritis, unspecified site; G47.33 Obstructive sleep apnea (adult) (pediatric); E53.8 Deficiency of other specified B group vitamins; Z79.818 Long term (current) use of other agents affecting estrogen receptors and estrogen levels; Z79.899 Other long term (current) drug therapy; Z99.89 Dependence on other enabling machines and devices
CPT/HCPCS: 36415; 80053; 84153; 85025; 96372; 96402; 99215; J9217

== ENCOUNTER 2021-06-09 08:01 | Outpatient (CLI) | payer MEDICAID, SELFPAY ==
--- NOTE | 2021-06-09 08:00 | CT_ITS ---
WS: [id number] CT CHEST, ABDOMEN AND PELVIS WITH CONTRAST HISTORY: PROSTATE CANCER TECHNIQUE: Contiguous 5 mm axial imaging performed through the chest, abdomen and pelvis with IV cont rast, oral contrast has been provided. Coronal and sagittal reformats chest. Coronal and sagittal ref ormats through the abdomen and pelvis. All CT scans at [facility] use at least one of these d ose optimization techniques: automated exposure control; mA and/or kV adjustment per patient size (in cludes targeted exams where dose is matched to clinical indication); or iterative reconstruction. CONTRAST: Omnipaque 300; 95 mL IV. DLP: 2271.67 mGycm COMPARISON: 12/02/[address]: There are a few scattered peripheral micronodules. No pulmonary mass, pneumonia or addition al nodules. Dependent changes of atelectasis at the lung bases and also atelectasis in the lingula. R IGHT hilar lymph node measures 12 mm. There are additional smaller lymph nodes. Heart size is normal. No pericardial or pleural effusions. Mild atherosclerosis aorta. Normal size pulmonary artery. Increase in thoracic kyphosis. Abdomen CT: Subcentimeter low-attenuation nodule along the surface of the liver is unchanged. No meta static disease in the liver. No bile duct dilatation. Gallbladder is normal. Normal spleen, pancreas and adrenal glands. Too small to characterize hypodensities within each kidney. Stable since 0. No renal obstruction. Very minimal atherosclerosis aorta. No aneurysm. Atherosclerosis continues i nto the iliac arteries. Moderate diffuse constipation. No GI tract obstruction. The appendix is normal. There are a few diver ticula with no adjacent diverticula to colitis. No ascites or free air. LYMPH NODES: New and enlarging retroperitoneal and pelvic lymphadenopathy. Distal aortocaval lymph no de is 0.7 cm and enlarging. Distal LEFT para-aortic lymph node 1.1 cm and new. Additional smaller lymph nodes adjacent to the IVC . Numerous bilateral iliac, obturator and inguinal lymph nodes are identified. The largest cluster of lymph nodes is along the LEFT obturator region extending towards the inguinal area. This large lymph node is necrotic and enhancing measuring 3.0 x 5.7 cm. Additional bilateral iliac chain lymph nodes. The largest on the RIGHT in the obturator region measures 2.5 x 3.1 cm. Largest inguinal lymph node is on the LEFT measuring 2.3 x 2.9 cm. All of these lymph nodes have significantly increased in size and also number since 12/02/2020. Pelvic CT: No free fluid within the pelvis. Urinary bladder is moderately well distended. Prostate gl and is enlarged and heterogeneous with enhancement encroaching into the bladder. Prostate gland exten ds over length of 7.1 cm x 4.1 x 4.7 cm. No definite osteoblastic or osteolytic bone disease is identified. CT/CT chest abd pel w con* IMPRESSION: 1. Significant increase in size and number of the retroperitoneal and pelvic l ymphadenopathy as described above. Enlarging brianna groups near the distal aorta and IVC and extending along the iliac chains into the pelvis and inguinal queenie ons. 2. Indeterminate 12 mm RIGHT hilar lymph node. 3. No pulmonary mass or nodule. 4. Enlarged lobulated prostate gland encroaching into the urinary bladder. Lili pect neoplasm.
[2021-06-09] MEDS: iohexol 300 mg/mL 50 mL Btl PO (08:21)
[2021-06-09] MEDS: iohexol 300 mg/mL 100 mL Btl IV (09:47)
== END 2021-06-09 08:02 | disposition home or self-care (01) ==
PROVIDERS: PCP Family Medicine; Visit Provider Internal Medicine Medical Oncology
DX: C61 Malignant neoplasm of prostate (principal); N40.0 Benign prostatic hyperplasia without lower urinary tract symptoms
CPT/HCPCS: 71260; 74177; Q9967

== ENCOUNTER 2021-06-11 10:01 | Outpatient (CLI) | payer MEDICAID, SELFPAY ==
[2021-06-11 11:08] LABS: Basophils % 0.6 %; Eosinophils # 0.3 10^3/uL (0.0-0.8); Eosinophils % 3.9 %; Hematocrit 40.2 % (42.0-52.0); Hemoglobin 13.5 g/dL (11.7-16.6); Lymphocytes # 1.9 10^3/uL (0.8-4.8); Lymphocytes % 26.4 %; Mean Corpuscular HGB Conc 33.6 g/dL (30.0-36.0); Mean Corpuscular Hemoglobin 28.8 pg (28.0-34.0); Mean Corpuscular Volume 85.9 fl (80-94); Mean Platelet Volume 10.9 fL (7.4-10.4); Monocytes # 0.5 10^3/uL (0.2-0.9); Monocytes % 7.1 %; Neutrophils # 4.42 10^3/uL (1.8-7.7); Neutrophils % 61.9 %; Nucleated Red Blood Cells % 0 %; Platelet Count 206 10^3/cmm (130-400); Red Blood Count 4.68 10^6/uL (4.1-5.3); Red Cell Distribution Width 13.2 % (12.1-15.1); White Blood Count 7.2 10^3/uL (4.0-10.0)
[2021-06-11 11:51] LABS: Alanine Aminotransferase 6 U/L (0-41); Albumin Level 4.2 g/dL (3.5-5.2); Alkaline Phosphatase 81 IU/L (40-130); Anion Gap 15.4 (5-19); Aspartate Amino Transferase 12 U/L (0-40); Blood Urea Nitrogen 13 mg/dL (8-23); Calcium 8.8 mg/dL (8.5-10.5); Carbon Dioxide 25 mmol/L (22-29); Chloride 102 mmol/L (98-107); Glomerular Filtration Rate 113.9 mL/min (90-130); Glucose 101 mg/dL (65-115); Osmolality Calculated 288 mOsm/kg (285-295); Potassium 3.4 mmol/L (3.5-5.1); Sodium 139 mmol/L (136-145); Total Bilirubin 0.5 mg/dL (0.15-1.2); Total Protein 7.2 g/dL (6.6-8.7)
--- NOTE | 2021-06-11 19:44 | ONC FU_ITS ---
Dr. Heath Patient Follow-Up Note Patient: Shiva Cyr Unit #: [id number]: 1955 Dicatated By: Italo Heath M.D.Date of Visit:Jun 11, 2021 Onc Med Follow-up/Prog Note Chief Complaint: Prostate cancer. 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 In May 2015 he developed urinary retention. He apparently was then seen by a urologist in [place]. According to Dr. Olivo's note, they had suspected prostate cancer based on physical findings and elevated PSA level at 59 ng/mL. He declined biopsy or treatment. He was given a prescription for tamsulosin, but he stopped taking it because some of his joint pain got worse. In July 2016 he was admitted to the hospital with urinary retention. He underwent cystoscopy with transurethral resection/vaporization of the prostate on 07/27/2016. He was noted to have a fixed prostate gland with grossly abnormal architecture. There was evidence of early invasion into the right trigone of the bladder. Pathology showed prostatic adenocarcinoma, Frontenac score 4+4. Tumor was noted to infiltrate 90% of the submitted tissues. His PSA level at that time was 124 ng/mL. Renal function was borderline with BUN 11 and creatinine 1.3 mg/dL. The alkaline phosphatase was normal. He had further evaluation with bone scan on 08/05/2016. It showed no evidence of metastatic disease. Contrast enhanced CT evidence/pelvis at that time showed markedly enlarged prostate with enhancement of the seminal vesicles suggestive of neoplastic invasion. The base and posterior inferior aspect of the bladder wall also appeared likely invaded. There was diffuse mild thickening of the remainder of the bladder wall. There was mild right hydronephrosis and moderate right ureterectasis likely secondary to partial obstruction of the right ureterovesical junction from neoplastic bladder base invasion. There were multiple enlarged lymph nodes including the iliac regions, left greater than right, and left para-aortic retroperitoneum. The largest node was a left internal iliac region node measuring 4.5 x 2.3 x 2.9 cm. External left iliac nodes measure up to 3.3 x 3.6 x 2.9 cm. He did have follow-up visit with Dr. Olivo at that time. He was recommended to begin androgen deprivation therapy. I had seen him initially on 10/29/2016. At that point he was still having some swelling in his left leg. He was voiding better following the surgery in July. He did agree to proceed with the androgen deprivation therapy, and initially he started treatment with bicalutamide 50 mg daily. He received his initial injection of Depo-Lupron on 11/24/2016. His PSA level at that point had declined to 30.00 ng/mL compared to 124 ng/mL in July 2016. He had repeat laboratory studies on 12/23/2016. His PSA level at that point had declined to 7.58 ng/mL. At the 2017 [employer] meeting the results of a clinical trial were reported which indicated survival benefit with upfront use of abiraterone in combination with androgen deprivation compared to initiation of abiraterone with evidence of castrate resistance. As such, he was offered the option to begin treatment with Zytiga, which we were able to obtain for him under the associate media planner's patient assistance program. However, after reviewing the potential side effects, he was reluctant to take the medication. He then continued treatment with Depo-Lupron. As of 02/15/2017 his PSA level had declined to 1.97 ng/mL. He received a second injection of Depo-Lupron 22.5 mg on 02/23/2017. On his follow-up visit on 05/26/2017 his PSA had further declined to 0.68 ng/mL. However, at that point he opted to stop his treatment due to side effects, mainly hot flashes and fatigue. On his follow-up visit in August 2017 his PSA level had increased to 12.20 ng/mL, and he did agree to restart the Depo-Lupron. As of 12/15/2017 his PSA level had declined to 0.55 ng/mL. On his follow-up visit in March 2018 he had opted to stop treatment again. At that time he was found to have a low B12 level at 138 pg/mL, and he then started B12 replacement. As of his follow-up visit on 06/26/2018 there was a significant increase in the PSA level, up to 5.96 ng/mL. He then restarted Depo-Lupron. At his follow-up visit on 09/28/2018 the PSA had declined to 0.59 ng/mL. He continued treatment with Depo-Lupron. During followup he had continued his Depo-Lupron injections every 3 months. As of July 2019 his PSA level had increased slightly, to 1.26 ng/mL compared to 0.78 ng/mL in April and to 0.64 ng/mL in December. During this time there was no change in his clinical status. In October 2019 the PSA had further increased to 3.49 ng/mL. He continued androgen deprivation with Depo-Lupron. In January there was a slight further increase in the PSA to 4.71 ng/mL. Restaging CT abdomen/pelvis on 01/21/2020 showed smaller prostate compared to the 2017 study and no evidence of pararectal or retroperitoneal lymphadenopathy. Bone scan showed degenerative changes in the knees with no evidence of metastatic disease. For reasons unclear to me he opted not to take his scheduled Depo-Lupron injection. At his follow-up visit on 04/16/2020 the PSA had increased to 19.930 ng/mL, and he did restart the Depo-Lupron. At his follow-up visit on 08/20/2020 the PSA was stable at 19.070 ng/mL. He continued treatment with Depo-Lupron. His medical illnesses, in addition to prostate cancer, include hypertension, degenerative arthritis, B12 deficiency, and obstructive sleep apnea. On 09/29/2017 he underwent repair of left inguinal hernia. He is a nonsmoker. INTERIM HISTORY: At his follow-up visit on 11/19/2020 there was a significant increase in the PSA level, to 45.020 ng/mL. His restaging CT of the abdomen/pelvis on 12/02/2020 showed new lymphadenopathy including a left pelvic sidewall node measuring 2.2 cm, an enlarged left common femoral vein measuring 1.6 cm, and additional enlarged left inguinal nodes, the largest measuring 1.2 cm. The prostate gland showed heterogeneous attenuation, but unchanged appearance. There were no bony destructive lesions identified. He had continued his scheduled Depo-Lupron injection, and given the CT findings, he then began antiandrogen therapy with enzalutamide 160 mg daily. However, in February he failed to come in for a scheduled Depo-Lupron injection, and he subsequently stopped the enzalutamide. At his follow-up visit on 05/07/2021 there was a very significant further increase in his PSA level, to 155.500 ng/mL. At that point he continued treatment with Depo-Lupron and he also then began antiandrogen therapy with darolutamide 600 mg twice daily. Restaging CT scans of the chest, abdomen, and pelvis on 06/09/2021 showed a few scattered pulmonary micronodules and an indeterminate right hilar lymph node measuring 12 mm. There was new and enlarging retroperitoneal and pelvic lymphadenopathy compared to the previous study in November 2020. The most significant was a necrotic left obturator region node measuring 3.0 x 5.7 cm and a right obturator region node measuring 2.5 x 3.1 cm. The largest inguinal node on the left measured 2.3 x 2.9 cm. The prostate gland was noted to be enlarged and heterogeneous with enhancement and rotating into the bladder. There was no definite osteoblastic or osteolytic bone disease identified. He is seen for a follow-up visit. He continues to have fatigue, though he is able to be pretty active, least in the mornings. His ECOG score is two. He has good appetite, but he does complain of having bitterness in his mouth with the darolutamide. He has not had fever. He is having hot flashes and sweating. He has not had sore mouth or throat. He does not complain of cough, and he has not been having shortness of breath or chest pain. He does complain that he is sometimes gassy. Bowel function is not too bad. He has urinary frequency and some difficulty voiding. He is not having dysuria or hematuria. He has some arthritis pain, but not bad. He does not complain of headaches. He sometimes has dizziness. He has some numbness in his left leg and foot. Medications: amLODIPine Besylate 1 Tablet (of 2.5 mg) Oral b.i.d., amLODIPine Besylate (10 mg) Tablet Oral b.i.d., Lisinopril 1 Tablet (of 20 mg) Oral daily, Valsartan (80 mg) Tablet Oral b.i.d. Allergies: No Known Allergies. Vital Signs: Performed on Jun 11, 2021 10:13 Height - 72.00 in Weight - 182.8 lbs (HIGH) BSA - 2.05 sq.m BMI - 24.79 Temperature - 97.4 F (LOW) Pulse - 89 /min Respiration - 18 /min BP - 160/80 mm(hg) (HIGH) O2 Sat - 98 % Pain - 3 Fatigue - 0 Physical Examination: Constitutional - He looks pretty good generally, Eyes - Sclerae nonicteric. Conjunctivae clear, ENMT - No lesions noted in the oral cavity, Hematologic/Lymphatic - No cervical, clavicular, or axillary adenopathy, Respiratory - Lungs sound clear, Cardiovascular - Heart rhythm is regular. There is no murmur, gallop, or rub noted, Abdomen - Soft. Liver and spleen are not enlarged. There is no abdominal mass or ascites noted. There is a brianna mass in the left inguinal area, now a little less prominent, Extremities - There is chronic swelling of the left leg, Neurologic - No focal neurologic deficits noted. Lab/Imaging: Test performed on Jun 11, 2021 10:53 Sodium 139 mmol/L Potassium 3.4 mmol/L Chloride 102 mmol/L CO2 25 mmol/L Anion Gap 15.4 BUN 13 mg/dL Creatinine 0.7 mg/dL Cr Clearance (Est) 126.6800 mL/min eGFR 113.9 mL/min Glucose 101 mg/dL Osmolality - Calculated 288 mOsm/kg Calcium 8.8 mg/dL Protein, Total 7.2 g/dL Albumin 4.2 g/dL Globulin 3.0 g/dL Bilirubin, Total 0.5 mg/dL ALT (SGPT) 6 U/L AST (SGOT) 12 U/L Alkaline Phosphatase 81 IU/L WBC 7.2 10 3/uL RBC 4.68 10 6/uL HGB 13.5 g/dL HCT 40.2 % MCV 85.9 fl MCH 28.8 pg MCHC 33.6 g/dL RDW 13.2 % Platelet Count 206 10 3/cmm MPV 10.9 fL Neutrophils 4.42 10 3/uL Lymphocytes 1.9 10 3/uL Monocytes 0.5 10 3/uL Eosinophils 0.3 10 3/uL Basophils 0.0 10 3/uL Neutrophil % 61.9 % Lymphocyte % 26.4 % Monocyte % 7.1 % Eosinophil % 3.9 % Basophils % 0.6 % NRBC % 0 % PSA 52.700 ng/mL Problem List: 1. Kevin score 8 adenocarcinoma of the prostate, by clinical evaluation stage IV (T4, N1, M1a). It was clinically evident by May 2015 and confirmed pathologically in July 2016. He had associated urinary retention and mild right hydronephrosis. 2. He has been on intermittent androgen deprivation therapy following transient urethral resection/vaporization of the prostate on 07/27/2016. 3. Hypertension. 4. Degenerative arthritis. 5. Obstructive sleep apnea, on CPAP. 6. B12 deficiency, on replacement therapy. Problems Addressed with this Encounter and Plan: Patient with kevin score 8 adenocarcinoma of the prostate, by stage IV (T4, N1, M1a). It was clinically evident by May 2015 and confirmed pathologically in July 2016. He began androgen deprivation therapy in October 2015. He had a good response to ADT, but he had opted to have treatment intermittently due to side effects. Beginning in April 2019 there was a very gradual but progressive increase in his PSA level. During follow-up he continued to have fairly limited activity tolerance, but his overall clinical status had remained stable. As of January 2020 his PSA level had increased to 4.71 ng/mL. His restaging with CT abdomen/pelvis and bone scan showed no evidence of metastatic disease. For reasons unclear to me he opted not to take his scheduled Depo-Lupron. As of April 2020 his PSA had further increased to 19.93 ng/mL. He appeared stable clinically, and at that point he restarted treatment with DepoLupron. As of his follow-up in August 2020 his PSA was stable at 19.070 ng/mL. He continued treatment with Depo-Lupron. As of his follow-up visit on 11/19/2020 there was a significant further increase in the PSA to 45.020 ng/mL. His overall clinical status appeared stable. His restaging CT abdomen/pelvis showed new lymphadenopathy involving the left pelvic sidewall and left inguinal region compared to the prior study from January 2020. Those findings and the CT images were reviewed with the patient and his daughter. As he clearly is showing disease progression, he was recommended to begin antiandrogen therapy. He had initially expressed a preference for darolutamide, but ultimately he began treatment with enzalutamide 160 mg daily in January 2021. During follow-up he continued to have poor tolerance for androgen deprivation therapy. He then failed to come in for his scheduled Depo-Lupron injection in February and he subsequently stopped the enzalutamide. As of his follow-up visit on 05/07/2021 there was a very significant further increase in his PSA level to 155 ng/mL. He had an enlarging left inguinal mass, and he also was having more difficulty voiding. At that point he restarted the Depo-Lupron and he subsequently began antiandrogen therapy with darolutamide 600 mg twice daily. Restaging CT scans on 06/09/2021 showed significant adenopathy in the pelvic area, more so on the left side, and the prostate was noted to be enlarged and encroaching into the bladder. There was no obvious metastatic bone involvement. At this point he does appear to be doing a little better clinically, and there has been a significant decline in his PSA level to 52.700 ng/mL. He will continue the darolutamide 600 mg twice daily. He will be scheduled for a follow-up visit in 1 month. In the meantime, I will review the CT scans with the radiation oncologist for consideration of palliative radiation. Signed By: Italo Heath M.D. <<Signature on File>>
== END 2021-06-11 10:02 | disposition home or self-care (01) ==
PROVIDERS: PCP Family Medicine; Visit Provider Internal Medicine Medical Oncology
DX: C61 Malignant neoplasm of prostate (principal); R33.9 Retention of urine, unspecified; N13.30 Unspecified hydronephrosis; I10 Essential (primary) hypertension; M19.90 Unspecified osteoarthritis, unspecified site; G47.33 Obstructive sleep apnea (adult) (pediatric); D51.9 Vitamin B12 deficiency anemia, unspecified; Z79.899 Other long term (current) drug therapy; Z79.818 Long term (current) use of other agents affecting estrogen receptors and estrogen levels; Z92.21 Personal history of antineoplastic chemotherapy
CPT/HCPCS: 36415; 80053; 84153; 85025; 99214

== ENCOUNTER 2021-07-15 09:42 | Outpatient (CLI) | payer MEDICAID, SELFPAY ==
[2021-07-15 10:18] LABS: Basophils # 0.1 10^3/uL (0.0-0.1); Basophils % 0.8 %; Eosinophils # 0.3 10^3/uL (0.0-0.8); Eosinophils % 3.5 %; Hematocrit 41.7 % (42.0-52.0); Hemoglobin 13.8 g/dL (11.7-16.6); Lymphocytes # 1.8 10^3/uL (0.8-4.8); Lymphocytes % 24.4 %; Mean Corpuscular HGB Conc 33.1 g/dL (30.0-36.0); Mean Corpuscular Hemoglobin 28.9 pg (28.0-34.0); Mean Corpuscular Volume 87.2 fl (80-94); Mean Platelet Volume 10.9 fL (7.4-10.4); Monocytes # 0.5 10^3/uL (0.2-0.9); Monocytes % 6.5 %; Neutrophils # 4.74 10^3/uL (1.8-7.7); Neutrophils % 64.5 %; Nucleated Red Blood Cells % 0 %; Platelet Count 211 10^3/cmm (130-400); Red Blood Count 4.78 10^6/uL (4.1-5.3); Red Cell Distribution Width 13.1 % (12.1-15.1); White Blood Count 7.4 10^3/uL (4.0-10.0)
[2021-07-15 10:43] LABS: Alanine Aminotransferase 9 U/L (0-41); Albumin Level 4.4 g/dL (3.5-5.2); Alkaline Phosphatase 86 IU/L (40-130); Anion Gap 17.5 (5-19); Aspartate Amino Transferase 13 U/L (0-40); Blood Urea Nitrogen 7 mg/dL (8-23); Calcium 8.6 mg/dL (8.5-10.5); Carbon Dioxide 24 mmol/L (22-29); Chloride 105 mmol/L (98-107); Globulin 2.7 g/dL (1.3-4.6); Glomerular Filtration Rate 113.5 mL/min (90-130); Glucose 87 mg/dL (65-115); Osmolality Calculated 293 mOsm/kg (285-295); Potassium 3.5 mmol/L (3.5-5.1); Sodium 143 mmol/L (136-145); Total Bilirubin 0.3 mg/dL (0.15-1.2); Total Protein 7.1 g/dL (6.6-8.7)
[2021-07-15 13:54] LABS: 25 Hydroxy Vitamin D 9 ng/mL (30-100)
--- NOTE | 2021-07-18 12:19 | ONC FU_ITS ---
Dr. Heath Patient Follow-Up Note Patient: Shiva Cyr Unit #: [id number]: 1955 Dicatated By: Italo Heath M.D.Date of Visit:Jul 15, 2021 Onc Med Follow-up/Prog Note Chief Complaint: Prostate cancer. 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 In May 2015 he developed urinary retention. He apparently was then seen by a urologist in [place]. According to Dr. Olivo's note, they had suspected prostate cancer based on physical findings and elevated PSA level at 59 ng/mL. He declined biopsy or treatment. He was given a prescription for tamsulosin, but he stopped taking it because some of his joint pain got worse. In July 2016 he was admitted to the hospital with urinary retention. He underwent cystoscopy with transurethral resection/vaporization of the prostate on 07/27/2016. He was noted to have a fixed prostate gland with grossly abnormal architecture. There was evidence of early invasion into the right trigone of the bladder. Pathology showed prostatic adenocarcinoma, Moro score 4+4. Tumor was noted to infiltrate 90% of the submitted tissues. His PSA level at that time was 124 ng/mL. Renal function was borderline with BUN 11 and creatinine 1.3 mg/dL. The alkaline phosphatase was normal. He had further evaluation with bone scan on 08/05/2016. It showed no evidence of metastatic disease. Contrast enhanced CT evidence/pelvis at that time showed markedly enlarged prostate with enhancement of the seminal vesicles suggestive of neoplastic invasion. The base and posterior inferior aspect of the bladder wall also appeared likely invaded. There was diffuse mild thickening of the remainder of the bladder wall. There was mild right hydronephrosis and moderate right ureterectasis likely secondary to partial obstruction of the right ureterovesical junction from neoplastic bladder base invasion. There were multiple enlarged lymph nodes including the iliac regions, left greater than right, and left para-aortic retroperitoneum. The largest node was a left internal iliac region node measuring 4.5 x 2.3 x 2.9 cm. External left iliac nodes measure up to 3.3 x 3.6 x 2.9 cm. He did have follow-up visit with Dr. Olivo at that time. He was recommended to begin androgen deprivation therapy. I had seen him initially on 10/29/2016. At that point he was still having some swelling in his left leg. He was voiding better following the surgery in July. He did agree to proceed with the androgen deprivation therapy, and initially he started treatment with bicalutamide 50 mg daily. He received his initial injection of Depo-Lupron on 11/24/2016. His PSA level at that point had declined to 30.00 ng/mL compared to 124 ng/mL in July 2016. He had repeat laboratory studies on 12/23/2016. His PSA level at that point had declined to 7.58 ng/mL. At the 2017 [employer] meeting the results of a clinical trial were reported which indicated survival benefit with upfront use of abiraterone in combination with androgen deprivation compared to initiation of abiraterone with evidence of castrate resistance. As such, he was offered the option to begin treatment with Zytiga, which we were able to obtain for him under the [employer]'s patient assistance program. However, after reviewing the potential side effects, he was reluctant to take the medication. He then continued treatment with Depo-Lupron. As of 02/15/2017 his PSA level had declined to 1.97 ng/mL. He received a second injection of Depo-Lupron 22.5 mg on 02/23/2017. On his follow-up visit on 05/26/2017 his PSA had further declined to 0.68 ng/mL. However, at that point he opted to stop his treatment due to side effects, mainly hot flashes and fatigue. On his follow-up visit in August 2017 his PSA level had increased to 12.20 ng/mL, and he did agree to restart the Depo-Lupron. As of 12/15/2017 his PSA level had declined to 0.55 ng/mL. On his follow-up visit in March 2018 he had opted to stop treatment again. At that time he was found to have a low B12 level at 138 pg/mL, and he then started B12 replacement. As of his follow-up visit on 06/26/2018 there was a significant increase in the PSA level, up to 5.96 ng/mL. He then restarted Depo-Lupron. At his follow-up visit on 09/28/2018 the PSA had declined to 0.59 ng/mL. He continued treatment with Depo-Lupron. During followup he had continued his Depo-Lupron injections every 3 months. As of July 2019 his PSA level had increased slightly, to 1.26 ng/mL compared to 0.78 ng/mL in April and to 0.64 ng/mL in December. During this time there was no change in his clinical status. In October 2019 the PSA had further increased to 3.49 ng/mL. He continued androgen deprivation with Depo-Lupron. In January there was a slight further increase in the PSA to 4.71 ng/mL. Restaging CT abdomen/pelvis on 01/21/2020 showed smaller prostate compared to the 2017 study and no evidence of pararectal or retroperitoneal lymphadenopathy. Bone scan showed degenerative changes in the knees with no evidence of metastatic disease. For reasons unclear to me he opted not to take his scheduled Depo-Lupron injection. At his follow-up visit on 04/16/2020 the PSA had increased to 19.930 ng/mL, and he did restart the Depo-Lupron. At his follow-up visit on 08/20/2020 the PSA was stable at 19.070 ng/mL. He continued treatment with Depo-Lupron. His medical illnesses, in addition to prostate cancer, include hypertension, degenerative arthritis, B12 deficiency, and obstructive sleep apnea. On 09/29/2017 he underwent repair of left inguinal hernia. He is a nonsmoker. INTERIM HISTORY: At his follow-up visit on 11/19/2020 there was a significant increase in the PSA level, to 45.020 ng/mL. His restaging CT of the abdomen/pelvis on 12/02/2020 showed new lymphadenopathy including a left pelvic sidewall node measuring 2.2 cm, an enlarged left common femoral vein measuring 1.6 cm, and additional enlarged left inguinal nodes, the largest measuring 1.2 cm. The prostate gland showed heterogeneous attenuation, but unchanged appearance. There were no bony destructive lesions identified. He had continued his scheduled Depo-Lupron injection, and given the CT findings, he then began antiandrogen therapy with enzalutamide 160 mg daily. However, in February he failed to come in for a scheduled Depo-Lupron injection, and he subsequently stopped the enzalutamide. At his follow-up visit on 05/07/2021 there was a very significant further increase in his PSA level, to 155.500 ng/mL. At that point he continued treatment with Depo-Lupron and he also then began antiandrogen therapy with darolutamide 600 mg twice daily. Restaging CT scans of the chest, abdomen, and pelvis on 06/09/2021 showed a few scattered pulmonary micronodules and an indeterminate right hilar lymph node measuring 12 mm. There was new and enlarging retroperitoneal and pelvic lymphadenopathy compared to the previous study in November 2020. The most significant was a necrotic left obturator region node measuring 3.0 x 5.7 cm and a right obturator region node measuring 2.5 x 3.1 cm. The largest inguinal node on the left measured 2.3 x 2.9 cm. The prostate gland was noted to be enlarged and heterogeneous with enhancement and rotating into the bladder. There was no definite osteoblastic or osteolytic bone disease identified. As of his follow-up visit on 06/11/2021 there had been some decline in the PSA level, to 52.700 ng/mL. He continued treatment with darolutamide 600 mg twice daily. He is seen for a follow-up visit. He continues to complain of low energy, though some days he feels better than others. ECOG score is 2. He has good appetite he has not had fever. He sometimes has hot flashes/sweating. He has some sinus drainage, but he does not complain of cough. He is sometimes short of breath, mainly with the hot flashes. He does not complain of chest pain. He has no GI complaints. Bladder function is the same. He has some joint pain, mainly in the hands and hips. He says it is a light pain. He does not complain of headache or dizziness. He has a little bit of numbness/tingling, especially in the left leg. Medications: Valsartan (80 mg) Tablet Oral b.i.d. Allergies: No Known Allergies. Vital Signs: Performed on Jul 15, 2021 11:42 Height - 72.00 in Weight - 182.2 lbs (LOW) BSA - 2.05 sq.m BMI - 24.71 Temperature - 97.1 F (LOW) Pulse - 86 /min Respiration - 16 /min BP - 171/103 mm(hg) (HIGH) O2 Sat - 98 % Pain - 3 Fatigue - 5 Physical Examination: Constitutional - He looks pretty good generally, Eyes - Sclerae nonicteric. Conjunctivae clear, ENMT - No lesions noted in the oral cavity, Hematologic/Lymphatic - No cervical, clavicular, or axillary adenopathy, Respiratory - Lungs sound clear, Cardiovascular - Heart rhythm is regular. There is no murmur, gallop, or rub noted, Abdomen - Soft. Liver and spleen are not enlarged. There is no abdominal mass or ascites noted. There is persistent mass in the left inguinal area, Extremities - There is chronic swelling of the left leg, Neurologic - No focal neurologic deficits noted. Lab/Imaging: Test performed on Jul 15, 2021 09:58 Sodium 143 mmol/L Vitamin D (25-Hydroxy), Total 9 ng/mL Potassium 3.5 mmol/L Chloride 105 mmol/L CO2 24 mmol/L Anion Gap 17.5 BUN 7 mg/dL Creatinine 0.7 mg/dL Cr Clearance (Est) 124.62 mL/min eGFR 113.5 mL/min Glucose 87 mg/dL Osmolality - Calculated 293 mOsm/kg Calcium 8.6 mg/dL Protein, Total 7.1 g/dL Albumin 4.4 g/dL Globulin 2.7 g/dL Bilirubin, Total 0.3 mg/dL ALT (SGPT) 9 U/L AST (SGOT) 13 U/L Alkaline Phosphatase 86 IU/L WBC 7.4 10 3/uL RBC 4.78 10 6/uL HGB 13.8 g/dL HCT 41.7 % MCV 87.2 fl MCH 28.9 pg MCHC 33.1 g/dL RDW 13.1 % Platelet Count 211 10 3/cmm MPV 10.9 fL Neutrophils 4.74 10 3/uL Lymphocytes 1.8 10 3/uL Monocytes 0.5 10 3/uL Eosinophils 0.3 10 3/uL Basophils 0.1 10 3/uL Neutrophil % 64.5 % Lymphocyte % 24.4 % Monocyte % 6.5 % Eosinophil % 3.5 % Basophils % 0.8 % NRBC % 0 % PSA 34.210 ng/mL Problem List: 1. Moro score 8 adenocarcinoma of the prostate, by clinical evaluation stage IV (T4, N1, M1a). It was clinically evident by May 2015 and confirmed pathologically in July 2016. He had associated urinary retention and mild right hydronephrosis. 2. He has been on intermittent androgen deprivation therapy following transient urethral resection/vaporization of the prostate on 07/27/2016. 3. Hypertension. 4. Degenerative arthritis. 5. Obstructive sleep apnea, on CPAP. 6. B12 deficiency, on replacement therapy. Problems Addressed with this Encounter and Plan: 1. Patient with sawyer score 8 adenocarcinoma of the prostate, by stage IV (T4, N1, M1a). It was clinically evident by May 2015 and confirmed pathologically in July 2016. He began androgen deprivation therapy in October 2015. He had a good response to ADT, but he had opted to have treatment intermittently due to side effects. Beginning in April 2019 there was a very gradual but progressive increase in his PSA level. During follow-up he continued to have fairly limited activity tolerance, but his overall clinical status had remained stable. As of January 2020 his PSA level had increased to 4.71 ng/mL. His restaging with CT abdomen/pelvis and bone scan showed no evidence of metastatic disease. For reasons unclear to me he opted not to take his scheduled Depo-Lupron. As of April 2020 his PSA had further increased to 19.93 ng/mL. He appeared stable clinically, and at that point he restarted treatment with DepoLupron. As of his follow-up in August 2020 his PSA was stable at 19.070 ng/mL. He continued treatment with Depo-Lupron. As of his follow-up visit on 11/19/2020 there was a significant further increase in the PSA to 45.020 ng/mL. His overall clinical status appeared stable. His restaging CT abdomen/pelvis showed new lymphadenopathy involving the left pelvic sidewall and left inguinal region compared to the prior study from January 2020. Those findings and the CT images were reviewed with the patient and his daughter. As he clearly is showing disease progression, he was recommended to begin antiandrogen therapy. He had initially expressed a preference for darolutamide, but ultimately he began treatment with enzalutamide 160 mg daily in January 2021. During follow-up he continued to have poor tolerance for androgen deprivation therapy. He then failed to come in for his scheduled Depo-Lupron injection in February and he subsequently stopped the enzalutamide. As of his follow-up visit on 05/07/2021 there was a very significant further increase in his PSA level to 155 ng/mL. He had an enlarging left inguinal mass, and he also was having more difficulty voiding. At that point he restarted the Depo-Lupron and he subsequently began antiandrogen therapy with darolutamide 600 mg twice daily. Restaging CT scans on 06/09/2021 showed significant adenopathy in the pelvic area, more so on the left side, and the prostate was noted to be enlarged and encroaching into the bladder. There was no obvious metastatic bone involvement. As of 06/11/2021 there was a significant decline in his PSA level to 52.700 ng/mL, and he continued the darolutamide. There is now been further decline in the PSA to 34.210 ng/mL. His overall clinical status appears stable. He continues antiandrogen therapy with darolutamide 600 mg twice daily. He will be due for Depo-Lupron again in 1 month. 2. He has vitamin D deficiency, he will now start replacement therapy with vitamin D3 2000 units daily and vitamin D2 50,000 units weekly. He is at risk of osteoporosis with his androgen deprivation therapy, but at least for now he does not want to have a DEXA scan. Signed By: Italo Heath M.D. <<Signature on File>>
== END 2021-07-15 09:43 | disposition home or self-care (01) ==
LOC: ONCMED 09:43
PROVIDERS: PCP Family Medicine; Visit Provider Internal Medicine Medical Oncology
DX: C61 Malignant neoplasm of prostate (principal); C77.8 Secondary and unspecified malignant neoplasm of lymph nodes of multiple regions; R33.9 Retention of urine, unspecified; N13.30 Unspecified hydronephrosis; I10 Essential (primary) hypertension; M19.90 Unspecified osteoarthritis, unspecified site; G47.33 Obstructive sleep apnea (adult) (pediatric); D51.9 Vitamin B12 deficiency anemia, unspecified; Z79.818 Long term (current) use of other agents affecting estrogen receptors and estrogen levels; Z79.899 Other long term (current) drug therapy
CPT/HCPCS: 36415; 80053; 82306; 84153; 85025; 99214

== ENCOUNTER 2021-12-21 11:45 | Oncology outpatient (recurring) (ONCR) | payer MEDICAID, SELFPAY ==
[2021-12-16 14:34] LABS: Basophils # 0.1 10^3/uL (0.0-0.1); Basophils % 0.5 %; Eosinophils # 0.3 10^3/uL (0.0-0.8); Eosinophils % 3.1 %; Hematocrit 42.5 % (42.0-52.0); Hemoglobin 13.9 g/dL (11.7-16.6); Lymphocytes # 2.6 10^3/uL (0.8-4.8); Lymphocytes % 25.7 %; Mean Corpuscular HGB Conc 32.7 g/dL (30.0-36.0); Mean Corpuscular Hemoglobin 28.7 pg (28.0-34.0); Mean Corpuscular Volume 87.8 fl (80-94); Mean Platelet Volume 11.2 fL (7.4-10.4); Monocytes # 0.7 10^3/uL (0.2-0.9); Monocytes % 7.1 %; Neutrophils # 6.35 10^3/uL (1.8-7.7); Neutrophils % 63.4 %; Nucleated Red Blood Cells % 0 %; Platelet Count 203 10^3/cmm (130-400); Red Blood Count 4.84 10^6/uL (4.1-5.3); Red Cell Distribution Width 13.2 % (12.1-15.1)
[2021-12-16 15:09] LABS: Alanine Aminotransferase 9 U/L (0-41); Albumin Level 4.4 g/dL (3.5-5.2); Alkaline Phosphatase 92 IU/L (40-130); Anion Gap 12.6 (5-19); Aspartate Amino Transferase 13 U/L (0-40); Blood Urea Nitrogen 16 mg/dL (8-23); Calcium 8.8 mg/dL (8.5-10.5); Carbon Dioxide 24 mmol/L (22-29); Chloride 104 mmol/L (98-107); Glucose 119 mg/dL (65-115); Osmolality Calculated 286 mOsm/kg (285-295); Potassium 3.6 mmol/L (3.5-5.1); Sodium 137 mmol/L (136-145); Total Bilirubin 0.4 mg/dL (0.15-1.2); Total Protein 7.4 g/dL (6.6-8.7)
[2021-12-16 17:15] LABS: 25 Hydroxy Vitamin D 33 ng/mL (30-100)
[2021-12-21 12:15] VITALS: BP 177/119; PULSE 84; RESP 18; TEMP 36.7; O2SAT 98
[2021-12-21] MEDS: leuprolide 22.5 mg Kit IM (12:17)
--- NOTE | 2021-12-21 12:20 | PC.NURSE ---
monitors BP at home states that he runs higher when he comes into the office.
== END 2022-01-05 23:59 | disposition home or self-care (01) ==
PROVIDERS: Nurse Practitioner Family; PCP Family Medicine; Visit Provider Internal Medicine Medical Oncology
DX: C61 Malignant neoplasm of prostate (principal); Z79.818 Long term (current) use of other agents affecting estrogen receptors and estrogen levels
CPT/HCPCS: 36415; 80053; 82306; 84153; 85025; 96372; 96402; 99214; 99999; J9217

== ENCOUNTER → 2022-05-19 13:12 | Outpatient (BNVA) | payer MEDICAID, SELFPAY | PROVIDERS: PCP Family Medicine; Visit Provider Urology | DX: R33.9 Retention of urine, unspecified (principal); C61 Malignant neoplasm of prostate; C77.8 Secondary and unspecified malignant neoplasm of lymph nodes of multiple regions | CPT/HCPCS: 51798; 52000; 99204 ==

== ENCOUNTER 2022-05-26 15:00 | Oncology outpatient (recurring) (ONCR) | payer MEDICAID, SELFPAY ==
[2022-05-11 14:06] LABS: Basophils % 0.4 %; Eosinophils # 0.4 10^3/uL (0.0-0.8); Eosinophils % 3.8 %; Hematocrit 38.7 % (42.0-52.0); Hemoglobin 12.6 g/dL (11.7-16.6); Lymphocytes # 2.3 10^3/uL (0.8-4.8); Lymphocytes % 23.3 %; Mean Corpuscular HGB Conc 32.6 g/dL (30.0-36.0); Mean Corpuscular Hemoglobin 28.8 pg (28.0-34.0); Mean Corpuscular Volume 88.4 fl (80-94); Mean Platelet Volume 11.1 fL (7.4-10.4); Monocytes # 0.6 10^3/uL (0.2-0.9); Monocytes % 6.5 %; Neutrophils # 6.35 10^3/uL (1.8-7.7); Neutrophils % 65.7 %; Nucleated Red Blood Cells % 0 %; Platelet Count 199 10^3/cmm (130-400); Red Blood Count 4.38 10^6/uL (4.1-5.3); Red Cell Distribution Width 13.1 % (12.1-15.1); White Blood Count 9.7 10^3/uL (4.0-10.0)
[2022-05-11 14:56] LABS: 25 Hydroxy Vitamin D 36 ng/mL (30-100); Alanine Aminotransferase 7 U/L (0-41); Alkaline Phosphatase 101 U/L (40-130); Anion Gap 14.1 (5-19); Aspartate Amino Transferase 12 U/L (0-40); Blood Urea Nitrogen 22 mg/dL (8-23); Calcium 8.8 mg/dL (8.5-10.5); Carbon Dioxide 25 mmol/L (22-29); Chloride 103 mmol/L (98-107); Globulin 3.4 g/dL (1.3-4.6); Glucose 109 mg/dL (65-115); Homocysteine 16.33; Osmolality Calculated 290 mOsm/kg (285-295); Potassium 4.1 mmol/L (3.5-5.1); Sodium 138 mmol/L (136-145); Total Bilirubin 0.3 mg/dL (0.15-1.2); Total Protein 7.4 g/dL (6.6-8.7); Vitamin B12 316 pg/mL (232-1245)
[2022-05-11 15:34] LABS: Testosterone Total 2.5 ng/dL (193-740)
[2022-05-11 15:35] LABS: Glomerular Filtration Rate 55.6 mL/min (90-130)
[2022-05-15 09:58] LABS: Methylmalonic Acid 331 nmol/L (87-318)
[2022-05-26] MEDS: leuprolide 22.5 mg Kit IM (15:56)
== END 2022-06-07 23:59 | disposition home or self-care (01) ==
PROVIDERS: PCP Family Medicine; Visit Provider Internal Medicine Medical Oncology
DX: C61 Malignant neoplasm of prostate (principal); C77.8 Secondary and unspecified malignant neoplasm of lymph nodes of multiple regions; Z79.899 Other long term (current) drug therapy
CPT/HCPCS: 80053; 82306; 82607; 83090; 83921; 84153; 84403; 85025; 96402; 99214; J9217

== ENCOUNTER 2022-07-13 14:03 | Oncology outpatient (recurring) (ONCR) | payer MEDICARE, MEDICAID, SELFPAY ==
[2022-07-13 14:38] LABS: Basophils % 0.5 %; Eosinophils # 0.3 10^3/uL (0.0-0.8); Eosinophils % 3.2 %; Hematocrit 37.5 % (42.0-52.0); Lymphocytes # 1.8 10^3/uL (0.8-4.8); Lymphocytes % 23.1 %; Mean Corpuscular Hemoglobin 28.6 pg (28.0-34.0); Mean Corpuscular Volume 89.3 fl (80-94); Mean Platelet Volume 10.9 fL (7.4-10.4); Monocytes # 0.5 10^3/uL (0.2-0.9); Monocytes % 6.8 %; Neutrophils # 5.22 10^3/uL (1.8-7.7); Neutrophils % 66.1 %; Nucleated Red Blood Cells % 0 %; Platelet Count 200 10^3/cmm (130-400); Red Cell Distribution Width 12.8 % (12.1-15.1); White Blood Count 7.9 10^3/uL (4.0-10.0)
[2022-07-13 15:10] LABS: Alanine Aminotransferase < 5 U/L (0-41); Albumin Level 3.9 g/dL (3.5-5.2); Alkaline Phosphatase 112 U/L (40-130); Anion Gap 12.9 (5-19); Aspartate Amino Transferase 10 U/L (0-40); Blood Urea Nitrogen 15 mg/dL (8-23); Calcium 9.2 mg/dL (8.5-10.5); Carbon Dioxide 27 mmol/L (22-29); Chloride 104 mmol/L (98-107); Globulin 3.4 g/dL (1.3-4.6); Glomerular Filtration Rate 60.8 mL/min (90-130); Glucose 112 mg/dL (65-115); Osmolality Calculated 292 mOsm/kg (285-295); Potassium 3.9 mmol/L (3.5-5.1); Sodium 140 mmol/L (136-145); Total Bilirubin 0.3 mg/dL (0.15-1.2); Total Protein 7.3 g/dL (6.6-8.7)
== END 2022-08-07 23:59 | disposition home or self-care (01) ==
LOC: ONCMED 14:06
PROVIDERS: PCP Family Medicine; Visit Provider Internal Medicine Medical Oncology
DX: C61 Malignant neoplasm of prostate (principal); C77.8 Secondary and unspecified malignant neoplasm of lymph nodes of multiple regions; C79.11 Secondary malignant neoplasm of bladder; G89.3 Neoplasm related pain (acute) (chronic); Z79.891 Long term (current) use of opiate analgesic; Z79.818 Long term (current) use of other agents affecting estrogen receptors and estrogen levels; Z79.899 Other long term (current) drug therapy
CPT/HCPCS: 36415; 80053; 84153; 85025; 99214

== ENCOUNTER → 2022-11-02 12:54 | Day surgery (SDC) | payer MEDICARE, MEDICAID, SELFPAY ==
--- NOTE | 2022-11-02 11:53 | XR_ITS ---
WS: [id number] Exam: XR chest 1V portable [id number] Date/Time of Exam: 11/02/2022 11:53 AM Reason For Exam: PICC line insertion Comparison the eighth 06/27/2019. The lungs are clear and fully expanded. Normal cardiomediastinal silhouette. Right-sided PICC line yañez s been placed and ends at the cavoatrial junction. No pleural effusions. Regional bony elements are i ntact. XR/XR chest 1V portable [id number] IMPRESSION: 1. Right-sided PICC line ending at the cavoatrial junction. The chest is otherw ise normal.
[2022-11-02 13:10] VITALS: BP 180/100; PULSE 74; RESP 18; TEMP 36.3; O2SAT 98; BMI 22.4
--- NOTE | 2022-11-02 14:51 | PC.NURSE ---
1330- PICC line inserted without difficulty in the GI lab by JENA Peterson. Consent obtained and instructions given with interpretation assist by son. X-ray final placement was cavoatrial junction. Pt tolerated procedure well.
== END ==
LOC: GILAB 13:02
PROVIDERS: PCP Family Medicine; Visit Provider Nurse Practitioner
DX: Z45.2 Encounter for adjustment and management of vascular access device (principal)
CPT/HCPCS: 36569; 71045

== ENCOUNTER 2022-11-03 12:59 | Oncology outpatient (recurring) (ONCR) | payer MEDICARE, MEDICAID, SELFPAY ==
[2022-11-03 13:29] LABS: Basophils # 0.1 10^3/uL (0.0-0.1); Basophils % 0.6 %; Eosinophils # 0.2 10^3/uL (0.0-0.8); Eosinophils % 2.6 %; Hematocrit 36.5 % (42.0-52.0); Hemoglobin 11.8 g/dL (11.7-16.6); Lymphocytes # 1.8 10^3/uL (0.8-4.8); Lymphocytes % 22.9 %; Mean Corpuscular HGB Conc 32.3 g/dL (30.0-36.0); Mean Corpuscular Hemoglobin 28.3 pg (28.0-34.0); Mean Corpuscular Volume 87.5 fl (80-94); Monocytes # 0.5 10^3/uL (0.2-0.9); Monocytes % 6.2 %; Neutrophils # 5.25 10^3/uL (1.8-7.7); Neutrophils % 67.6 %; Nucleated Red Blood Cells % 0 %; Platelet Count 173 10^3/cmm (130-400); Red Blood Count 4.17 10^6/uL (4.1-5.3); Red Cell Distribution Width 13.9 % (12.1-15.1); White Blood Count 7.8 10^3/uL (4.0-10.0)
--- NOTE | 2022-11-03 13:38 | PC.NURSE ---
PICC line dressing change completed on pt via sterile technique. Pt had PICC line inserted yesterday 11/02/22. No redness or irritation noted to site. Lab called stating pts CMP and PSA hemolized. Pt to return on 11/08/22 for labs/treatment, pt already left for the day. Will redraw labs on 11/08/22. Blood was slow to draw. DEYANIRA
== END 2022-11-05 23:59 | disposition home or self-care (01) ==
PROVIDERS: Nurse Practitioner; PCP Family Medicine; Visit Provider Internal Medicine Medical Oncology
DX: C61 Malignant neoplasm of prostate (principal); C77.8 Secondary and unspecified malignant neoplasm of lymph nodes of multiple regions; C79.11 Secondary malignant neoplasm of bladder
CPT/HCPCS: 36592; 85025

== ENCOUNTER 2022-11-04 23:10 | Emergency (ER) | payer MEDICARE, MEDICAID, SELFPAY ==
[2022-11-04 23:17] VITALS: PULSE 81; RESP 18; TEMP 36.8; O2SAT 99; BMI 21.1
--- NOTE | 2022-11-05 | ED_ITS ---
Documented by User: SHANNA Al 11/05/22 02:42 HPI - Allergic Reaction General: Chief complaint: Allergic Reaction Stated complaint: Bee Sting\Allergic Reaction Time Seen by Provider: 11/04/22 23:40 History of Present Illness: HPI narrative: Patient is in tonight for allergic reaction to bee sting. Patient reports that he was stung by a bee approximately 10:00 tonight. Patient speaks broken Nigerien but does appear to comprehend. Patient's is interpreting for patient at bedside. advised that after patient was stung he had some swelling to his left hand and then he started developing hives and complaining that his throat was feeling itchy. Patient states that his throat is still feeling slightly itchy and tight. He denies any chest pain. He denies shortness of breath. Associated symptoms: Deny abdominal pain, nausea or vomiting Review of Systems Const: Denies: fever(s) or chills ENMT: Reports: other (Feeling of itching and swelling in throat after bee sting) Card: Denies: chest pain or palpitations Resp: Denies: dyspnea, productive cough or non-productive cough GI: Denies: abdominal pain, nausea or vomiting Skin/Breast: Reports: rash, pruritus, erythema and skin swelling Neuro: Denies: headache(s) PFSH ED PFSH: Medical History B12 deficiency Degenerative arthritis HTN (hypertension) Prostate cancer Urinary retention Vitamin D deficiency Surgical History S/P cataract surgery S/P hernia repair (2018) left inguinal hernia repair and history of bilateral inguinal hernia repair in childhood S/P TURP (07/27/16) cystoscopy with transurethral resection/vaporization of the prostate Family History Mother Hypertension Stroke Father Cancer Other Lung disease Denies family history of Diabetes CAD (coronary artery disease) Clotting disorder Dementia Hyperlipidemia Psychiatric illness Chronic kidney disease (CKD) Suicide Anesthesia complication Bleeding disorder Social History Smoking and tobacco status: never smoked Alcohol intake: never Physical Exam Const: COMMON NORMALS: no acute distress, patient oriented x3 and alert HENMT: COMMON NORMALS: Normal nasal mucous membranes and turbinates present, moist oral mucous membranes, oropharynx normal and gingiva normal NOSE: Normal nasal mucous membranes and turbinates present THROAT: posterior oropharynx normal and uvula midline Neck/C-Spine: COMMON NORMALS: no JVD Resp: COMMON NORMALS: normal respiratory effort, No use of accessory muscles and clear to auscultation bilaterally AUSCULTATION: clear to auscultation bilaterally Cardio: COMMON NORMALS: no JVD, regular rate, regular rhythm, S1 normal heart sound present and S2 normal heart sound present RATE: regular rate RHYTHM: regular rhythm HEART SOUNDS: S1 normal heart sound present and S2 normal heart sound present GI: COMMON NORMALS: Normal to inspection, nondistended, normoactive bowel sounds present, Soft to palpation and non-tender PALPATION: Yes Soft to palpation Extremity: NARRATIVE EXTREMITY EXAM: Erythema and edema of left dorsal hand where patient reports bee sting occurred Neuro: COMMON NORMALS: patient oriented x3 SENSORIUM/ORIENTATION: Yes alert Course Vital Signs: Vital signs: Vital Signs Temperature 98.2 F 11/04/22 23:17 Pulse Rate 81 11/04/22 23:17 Respiratory Rate 18 11/04/22 23:17 Pulse Oximetry 99 11/04/22 23:17 Oxygen Delivery Me thod 11/04/22 23:17 MDM - Allergic Reaction Medical Decision Making Patient is in today after allergic reaction to a bee sting. Patient was stung approximately 2200 tonight and then I saw him in ER at midnight. At that time patient was complaining of throat feeling tight and swollen. He had scattered hives on his anterior posterior trunk. He had swelling of the dorsal left hand. Vital signs are stable. Patient was given Solu-Medrol, Benadryl, Pepcid. His daughter was present with him in the room. Patient reported improvement of symptoms. ?patient is requesting to go home now. He still does have scattered hives anterior and posterior trunk swelling of his left hand. He denies that he has any more swelling or itching of his mouth, tongue, throat. He is in no acute distress his respirations are even and nonlabored. Patient would like to be discharged to home at this time. His daughter has left that she has a nursing baby at home. Patient states that he will be driving himself. He is up and ambulatory in the room and does not appear impaired after the Benadryl was administered. I did advise the patient that I recommend he have a form setter/driver. Patient wishes to be discharged at this time. Discharge Plan Discharge Patient Disposition: Home Clinical Impression: Allergic reaction Condition: Stable Prescriptions: New prednisone 20 mg tablet 40 mg PO DAILY 5 Days Qty: 10 0RF EpiPen 2-Fadi 0.3 mg/0.3 mL auto-injector 0.3 mg IM Q10M PRN (Reason: anaphylaxis) Qty: 2 0RF Rx Instructions: for 2 doses Discharge Orders: Discharge ED (Routine); Ordered 11/05/22 Ordered By: Mia Cornejo Referrals: Ed Gibson MD [Primary Care Provider] - Discharge Diet: Usual diet Discharge Activity: Resume usual activity Patient Instructions: Allergic Reaction, Epinephrine (By injection) (Adrenaclick, Adrenalin, EpiPen,... Activity Restrictions/Additional Instructions: Start prednisone. Allergic reactions can persist for several days. As the Benadryl wears off your symptoms could return and be worse. You may use Benadryl at home every 4-6 hours. I have prescribed an EpiPen for your use s hould you have any other exposure to bee stings that cause you to feel like your throat is closing off. If you use the EpiPen you should be on your way to the emergency department as this medication only buys you a small amount of time before symptoms could worsen. Return to the ER for any new or worsening symptoms. Coding Level of Care Code ED Exposure Machine Operator for Chg Fwd Documented by User: Palomo Barahona DO 11/05/22 06:54 HPI - Allergic Reaction General: Chief complaint: Allergic Reaction Stated complaint: Bee Sting\Allergic Reaction Time Seen by Provider: 11/04/22 23:40 PFSH ED PFSH: Medical History B12 deficiency Degenerative arthritis HTN (hypertension) Prostate cancer Urinary retention Vitamin D deficiency Surgical History S/P cataract surgery S/P hernia repair (2018) left inguinal hernia repair and history of bilateral inguinal hernia repair in childhood S/P TURP (07/27/16) cystoscopy with transurethral resection/vaporization of the prostate Family History Mother Hypertension Stroke Father Cancer Other Lung disease Denies family history of Diabetes CAD (coronary artery disease) Clotting disorder Dementia Hyperlipidemia Psychiatric illness Chronic kidney disease (CKD) Suicide Anesthesia complication Bleeding disorder Social History Smoking and tobacco status: never smoked Alcohol intake: never Course Vital Signs: Vital signs: Vital Signs Temperature 98.2 F 11/04/22 23:17 Pulse Rate 81 11/04/22 23:17 Respiratory Rate 18 11/04/22 23:17 Pulse Oximetry 99 11/04/22 23:17 Oxygen Delivery Me thod 11/04/22 23:17 MDM - Allergic Reaction Medical Decision Making Patient is in today after allergic reaction to a bee sting. Patient was stung approximately 2200 tonight and then I saw him in ER at midnight. At that time patient was complaining of throat feeling tight and swollen. He had scattered hives on his anterior posterior trunk. He had swelling of the dorsal left hand. Vital signs are stable. Patient was given Solu-Medrol, Benadryl, Pepcid. His daughter was present with him in the room. Patient reported improvement of symptoms. 46?patient is requesting to go home now. He still does have scattered hives anterior and posterior trunk swelling of his left hand. He denies that he has any more swelling or itching of his mouth, tongue, throat. He is in no acute distress his respirations are even and nonlabored. Patient would like to be discharged to home at this time. His daughter has left that she has a nursing baby at home. Patient states that he will be driving himself. He is up and ambulatory in the room and does not appear impaired after the Benadryl was administered. I did advise the patient that I recommend he have a form setter/driver. Patient wishes to be discharged at this time. Chart reviewed and patient discussed with midlevel. Agree with assessment and plan. Discharge Plan Discharge Patient Disposition: Home Clinical Impression: Allergic reaction Condition: Stable Prescriptions: New prednisone 20 mg tablet 40 mg PO DAILY 5 Days Qty: 10 0RF EpiPen 2-Fadi 0.3 mg/0.3 mL auto-injector 0.3 mg IM Q10M PRN (Reason: anaphylaxis) Qty: 2 0RF Rx Instructions: for 2 doses Discharge Orders: Discharge ED (Routine); Ordered 11/05/22 Ordered By: Mia Cornejo Referrals: Ed Gibson MD [Primary Care Provider] - Discharge Diet: Usual diet Discharge Activity: Resume usual activity Patient Instructions: Allergic Reaction, Epinephrine (By injection) (Adrenaclick, Adrenalin, EpiPen,... Activity Restrictions/Additional Instructions: Start prednisone. Allergic reactions can persist for several days. As the Benadryl wears off your symptoms could return and be worse. You may use Benadryl at home every 4-6 hours. I have prescribed an EpiPen for your use should you have any other exposure to bee stings that cause you to feel like your throat is closing off. If you use the EpiPen you should be on your way to the emergency department as this medication only buys you a small amount of time before symptoms could worsen. Return to the ER for any new or worsening symptoms. Coding Level of Care Code ED Exposure Machine Operator for Sergio Stuart
[2022-11-05] MEDS: famotidine 20 mg/2 mL INJ 40 MG IVP (00:24)
[2022-11-05] MEDS: diphenhydrAMINE 50 mg/mL SDV 1mL IVP (00:24)
== END 2022-11-05 02:14 | disposition home or self-care (01) ==
PROVIDERS: Emergency Provider Nurse Practitioner Family; PCP Family Medicine
DX: T63.441A Toxic effect of venom of bees, accidental (unintentional), initial encounter (principal); I10 Essential (primary) hypertension; Z85.46 Personal history of malignant neoplasm of prostate
CPT/HCPCS: 96374; 96375; 99284; J1200; J2930; J3490

== ENCOUNTER → 2022-11-08 08:57 | Outpatient (BNVA) | payer MEDICARE, MEDICAID, SELFPAY | PROVIDERS: PCP Family Medicine; Visit Provider Nurse Practitioner | DX: C77.8 Secondary and unspecified malignant neoplasm of lymph nodes of multiple regions (principal) | CPT/HCPCS: 99215 ==

== ENCOUNTER 2022-11-30 09:30 | Oncology outpatient (recurring) (ONCR) | payer MEDICARE, MEDICAID, SELFPAY ==
[2022-11-09 10:18] VITALS: BP 171/97; PULSE 110; TEMP 36.3; O2SAT 99
[2022-11-09] MEDS: sodium chloride 0.9% 250 ML 100 ML IV (10:48)
[2022-11-09] MEDS: famotidine 20 mg/2 mL INJ IVP (10:49)
[2022-11-09] MEDS: palonosetron 0.25 mg/5 mL SDV IVP (10:49)
[2022-11-09] MEDS: diphenhydrAMINE 50 mg/mL SDV 1mL 25 MG IVP (10:50)
[2022-11-09 12:50] VITALS: BP 198/106; PULSE 75; TEMP 36.4; O2SAT 95
--- NOTE | 2022-11-09 13:14 | PC.NURSE ---
PICC line dressing changed completed via sterile technique for pts R upper arm PICC line. Pt tolerated well. No redness or irritation noted. JW
--- NOTE | 2022-11-11 16:34 | PC.NURSE ---
Patients family member called this am around 0900 stating Lino had gotten picc line dressing wet. Recommended patient come in for dressing change care. Patient did present with little evidence of wetness at site. No s/s of infection present. Dressing changed without incidence.
[2022-11-16 11:29] LABS: Basophils # 0.1 10^3/uL (0.0-0.1); Basophils % 1.9 %; Eosinophils # 0.2 10^3/uL (0.0-0.8); Eosinophils % 5.1 %; Hematocrit 35.6 % (42.0-52.0); Hemoglobin 11.7 g/dL (11.7-16.6); Lymphocytes # 1.8 10^3/uL (0.8-4.8); Lymphocytes % 56.3 %; Mean Corpuscular HGB Conc 32.9 g/dL (30.0-36.0); Mean Corpuscular Hemoglobin 28.3 pg (28.0-34.0); Mean Platelet Volume 10.7 fL (7.4-10.4); Monocytes # 0.2 10^3/uL (0.2-0.9); Monocytes % 6.1 %; Neutrophils % 29.6 %; Nucleated Red Blood Cells % 0 %; Platelet Count 177 10^3/cmm (130-400); Red Blood Count 4.14 10^6/uL (4.1-5.3); Red Cell Distribution Width 13.2 % (12.1-15.1); White Blood Count 3.1 10^3/uL (4.0-10.0)
[2022-11-16 11:31] LABS: Neutrophils # 0.92 10^3/uL (1.8-7.7)
[2022-11-17] MEDS: filgrastim-sndz 480 mcg/0.8 mL Syringe SUBCUT (15:52)
[2022-11-18] MEDS: filgrastim-sndz 480 mcg/0.8 mL Syringe SUBCUT (15:31)
[2022-11-18 16:27] VITALS: BP 155/80; PULSE 68; RESP 16; TEMP 36.6; O2SAT 98
[2022-11-19 11:14] VITALS: BP 151/78; PULSE 98; RESP 18; TEMP 36.8; O2SAT 97
[2022-11-19 11:27] LABS: Basophils # 0.1 10^3/uL (0.0-0.1); Basophils % 1.2 %; Eosinophils # 0.1 10^3/uL (0.0-0.8); Eosinophils % 1.5 %; Hematocrit 33.9 % (42.0-52.0); Lymphocytes # 1.9 10^3/uL (0.8-4.8); Mean Corpuscular HGB Conc 32.4 g/dL (30.0-36.0); Mean Corpuscular Hemoglobin 28.5 pg (28.0-34.0); Mean Corpuscular Volume 87.8 fl (80-94); Mean Platelet Volume 10.2 fL (7.4-10.4); Monocytes # 1.4 10^3/uL (0.2-0.9); Monocytes % 22.9 %; Neutrophils # 2.08 10^3/uL (1.8-7.7); Neutrophils % 35.3 %; Nucleated Red Blood Cells % 0.3 %; Platelet Count 188 10^3/cmm (130-400); Red Blood Count 3.86 10^6/uL (4.1-5.3); Red Cell Distribution Width 13.3 % (12.1-15.1); White Blood Count 5.9 10^3/uL (4.0-10.0)
[2022-11-19 11:40] LABS: Alanine Aminotransferase 6 U/L (0-41); Albumin Level 3.5 g/dL (3.5-5.2); Alkaline Phosphatase 88 U/L (40-130); Aspartate Amino Transferase 12 U/L (0-40); Blood Urea Nitrogen 14 mg/dL (8-23); Calcium 8.6 mg/dL (8.5-10.5); Carbon Dioxide 24 mmol/L (22-29); Chloride 106 mmol/L (98-107); Globulin 2.5 g/dL (1.3-4.6); Glomerular Filtration Rate 55.4 mL/min (90-130); Glucose 108 mg/dL (65-115); Osmolality Calculated 289 mOsm/kg (285-295); Sodium 139 mmol/L (136-145); Total Bilirubin 0.5 mg/dL (0.15-1.2)
[2022-11-19 11:46] LABS: Anion Gap 13.3 (5-19)
[2022-11-19 11:47] LABS: Potassium 4.3 mmol/L (3.5-5.1)
[2022-11-23 10:55] VITALS: BP 122/78; PULSE 74; RESP 18; TEMP 35.9; O2SAT 98
[2022-11-23 11:45] LABS: Hematocrit 35.6 % (42.0-52.0); Hemoglobin 11.4 g/dL (11.7-16.6); Mean Corpuscular Hemoglobin 28.4 pg (28.0-34.0); Mean Corpuscular Volume 88.6 fl (80-94); Mean Platelet Volume 10.3 fL (7.4-10.4); Platelet Count 189 10^3/cmm (130-400); Red Blood Count 4.02 10^6/uL (4.1-5.3); Red Cell Distribution Width 13.6 % (12.1-15.1); White Blood Count 14.8 10^3/uL (4.0-10.0)
[2022-11-23 12:28] LABS: Slide Review Slide Review Perform; Total Cells Counted 100 (0-100)
[2022-11-23 12:29] LABS: Absolute Segmented Neutrophil 8.1 10/cmm (1.6-7.1); Band Neutrophils Absolute 0.9 10^3/cmm (0.0-1.2); Eosinophils 0 %; Lymphocytes 20 %; Monocytes Absolute 0.7 10^3/cmm (0.1-0.6); Platelet Estimate Normal (Normal); Segmented Neutrophils 55 %
[2022-11-30 09:40] VITALS: BP 184/91; PULSE 77; TEMP 36.4; O2SAT 99
[2022-11-30 10:02] LABS: Basophils # 0.1 10^3/uL (0.0-0.1); Basophils % 0.6 %; Eosinophils % 0.2 %; Hematocrit 34.5 % (42.0-52.0); Hemoglobin 11.2 g/dL (11.7-16.6); Lymphocytes # 1.4 10^3/uL (0.8-4.8); Lymphocytes % 14.7 %; Mean Corpuscular HGB Conc 32.5 g/dL (30.0-36.0); Mean Corpuscular Hemoglobin 28.6 pg (28.0-34.0); Mean Corpuscular Volume 88.2 fl (80-94); Mean Platelet Volume 10.7 fL (7.4-10.4); Monocytes # 0.4 10^3/uL (0.2-0.9); Monocytes % 3.7 %; Neutrophils # 7.78 10^3/uL (1.8-7.7); Neutrophils % 80.6 %; Nucleated Red Blood Cells % 0 %; Platelet Count 172 10^3/cmm (130-400); Red Blood Count 3.91 10^6/uL (4.1-5.3); White Blood Count 9.7 10^3/uL (4.0-10.0)
--- NOTE | 2022-11-30 10:34 | PC.NURSE ---
PICC line dressing change completed on pt via sterile technique. Pt tolerated well. No redness or irritation noted. DEYANIRA
[2022-11-30 12:13] LABS: Alanine Aminotransferase 6 U/L (0-41); Albumin Level 4.2 g/dL (3.5-5.2); Alkaline Phosphatase 91 U/L (40-130); Anion Gap 12.9 (5-19); Aspartate Amino Transferase 9 U/L (0-40); Blood Urea Nitrogen 15 mg/dL (8-23); Calcium 8.5 mg/dL (8.5-10.5); Carbon Dioxide 28 mmol/L (22-29); Chloride 104 mmol/L (98-107); Globulin 2.7 g/dL (1.3-4.6); Glomerular Filtration Rate 67.2 mL/min (90-130); Glucose 95 mg/dL (65-115); Osmolality Calculated 293 mOsm/kg (285-295); Potassium 3.9 mmol/L (3.5-5.1); Sodium 141 mmol/L (136-145); Total Bilirubin 0.4 mg/dL (0.15-1.2); Total Protein 6.9 g/dL (6.6-8.7)
[2022-12-01 09:05] LABS: Testosterone Total 2.5 ng/dL (193-740)
== END 2022-12-05 23:59 | disposition home or self-care (01) ==
PROVIDERS: Nurse Practitioner; PCP Family Medicine; Visit Provider Internal Medicine Medical Oncology
DX: C61 Malignant neoplasm of prostate (principal); C77.8 Secondary and unspecified malignant neoplasm of lymph nodes of multiple regions; C79.11 Secondary malignant neoplasm of bladder; C79.51 Secondary malignant neoplasm of bone; Z79.52 Long term (current) use of systemic steroids; Z79.899 Other long term (current) drug therapy
CPT/HCPCS: 36592; 80053; 84153; 84403; 85007; 85025; 96372; 96375; 96401; 96413; 99215; J1100; J1200; J2469; J3490; J7050; J9171; Q5101

== ENCOUNTER 2022-12-04 20:27 | Emergency (ER) | payer MEDICARE, MEDICAID, SELFPAY ==
[2022-12-04 20:41] VITALS: BP 220/123; PULSE 90; RESP 18; TEMP 36.3; O2SAT 100
--- NOTE | 2022-12-04 21:08 | ED_ITS ---
HPI - Male Genitourinary General: Chief complaint: Urogenital-Male Stated complaint: can void Time Seen by Provider: 12/04/22 20:53 History of Present Illness: Patient comes in with lower abdominal pain and urinary retention. States he has not been able to urinate since last night. Patient has a history of prostate cancer. Denies burning with urination. Denies fever, vomiting, diarrhea. Associated symptoms: Deny nausea or vomiting Review of Systems Const: Denies: fever(s) or body aches Card: Denies: chest pain or palpitations Resp: Denies: dyspnea or productive cough GI: Reports: abdominal pain; Denies: nausea or vomiting : Reports: difficulty urinating Musc: Denies: back pain PFSH ED PFSH: Medical History B12 deficiency Degenerative arthritis HTN (hypertension) Prostate cancer Urinary retention Vitamin D deficiency Surgical History S/P cataract surgery S/P hernia repair (2018) left inguinal hernia repair and history of bilateral inguinal hernia repair in childhood S/P TURP (07/27/16) cystoscopy with transurethral resection/vaporization of the prostate Family History Mother Hypertension Stroke Father Cancer Other Lung disease Denies family history of Diabetes CAD (coronary artery disease) Clotting disorder Dementia Hyperlipidemia Psychiatric illness Chronic kidney disease (CKD) Suicide Anesthesia complication Bleeding disorder Social History Smoking and tobacco status: never smoked Alcohol intake: never Physical Exam Const: COMMON NORMALS: patient oriented x3 and alert OTHER: Moderate distress from pain HENMT: COMMON NORMALS: normocephalic and atraumatic HEAD & SCALP: normocephalic and atraumatic Eye: COMMON NORMALS: EOMs intact bilaterally Neck/C-Spine: COMMON NORMALS: full ROM and supple Resp: COMMON NORMALS: normal respiratory effort, No retractions and No use of accessory muscles GI: COMMON NORMALS: Soft to palpation PALPATION: Yes Soft to palpation OTHER: Suprapubic tenderness to palpation Extremity: COMMON NORMALS: normal to inspection and full ROM Neuro: COMMON NORMALS: patient oriented x3 SENSORIUM/ORIENTATION: Yes alert Psych: COMMON NORMALS: mental status grossly normal and cooperative Course Vital Signs: Vital signs: Vital Signs Temperature 97.4 F L 12/04/22 20:41 Pulse Rate 90 12/04/22 20:41 Respiratory Rate 18 12/04/22 20:41 Blood Pressure 220/123 12/04/22 20:41 Pulse Oximetry 100 12/04/22 20:41 Oxygen Delivery Me thod Room Air 12/04/22 20:41 MDM - Male Medical Decision Making Patient comes in with lower abdominal pain and urinary retention. States he has not been able to urinate since last night. Patient has a history of prostate cancer. Denies burning with urination. Denies fever, vomiting, diarrhea. On physical exam the patient is up and pacing and in obvious distress from pain. Bladder scan shows greater than 500 cc in the bladder. We will place a Munroe catheter, check UA, and reassess. Multiple attempts were made to pass a Munroe catheter and were unsuccessful. I finally attempted a 14 [place] coud? and was able to get the catheter to pass by the prostate with much difficulty. It is in place and draining urine. The patient states he feels much better. His urinalysis shows no infection. There was no blood in the urine. I did talk to the patient about the size of the catheter not being sufficient if he starts seeing blood. I talked with him also about return to the emergency department if the catheter should stop draining. Will refer him to urology for follow-up. We will place him on Flomax. Will discharge home at this time. Lab Data Laboratory Results Urine Color Yellow (Yellow) 12/04/22 21:24 Urine Appearance Clear (CLEAR) 12/04/22 21:24 Urine pH 6.5 (5-7) 12/04/22 21:24 Ur Specific [place] 1.015 (1.005-1.030) 12/04/22 21:24 Urine Protein Neg (Negative) 12/04/22 21:24 Urine Glucose (UA) Norm (Normal) 12/04/22 21:24 Urine Ketones Negative (Negative) 12/04/22 21:24 Urine Blood Neg (Negative) 12/04/22 21:24 Urine Nitrate Negative (Negative) 12/04/22 21:24 Urine Bilirubin Neg (Negative) 12/04/22 21:24 Urine Urobilinogen Norm mg/dL (Negative) 12/04/22 21:24 Ur Leukocyte Esterase Negative (Negative) 12/04/22 21:24 Discharge Plan Discharge Patient Disposition: Home Clinical Impression: Acute urinary retention Condition: Stable Prescriptions: New Flomax 0.4 mg capsule 0.4 mg PO DAILY Qty: 14 0RF No Action prednisone 5 mg tablet 5 mg PO BID Qty: 60 3RF lorazepam 0.5 mg tablet 0.5 mg PO TID PRN (Reason: anxiety) Qty: 30 1RF EpiPen 2-Fadi 0.3 mg/0.3 mL auto-injector 0.3 mg IM Q10M PRN (Reason: anaphylaxis) Qty: 2 3RF Rx Instructions: for 2 doses prochlorperazine maleate 10 mg tablet 10 mg PO Q6H PRN (Reason: nausea and vomiting) Qty: 30 3RF dexamethasone 4 mg tablet 8 mg PO BID Qty: 30 1RF Rx Instructions: Take the day before and the day after each chemotherapy treatment prednisone 5 mg Tablet 5 mg PO BID Qty: 42 5RF Rx Instructions: Take on days 1-21 of each cycle Compazine 10 mg tablet 10 mg PO Q4H PRN (Reason: Mild Nausea) Qty: 30 3RF lorazepam 1 mg tablet 0.5 - 1 mg PO Q6H PRN (Reason: Severe Nausea) Qty: 30 3RF Discharge Orders: Discharge ED (Routine); Ordered 12/04/22 Ordered By: Abdi Ybarra Referrals: Vladimir Olivo MD [Physician] - (Call Tuesday to be seen for acute urinary retention and munroe placement.) Ed Gibson MD [Primary Care Provider] - Patient Instructions: Urinary Retention in Men (ED) Coding Level of Care Code ED Seamer for Sergio Stuart
--- NOTE | 2022-12-04 21:41 | PC.NURSE ---
Pt. needing Coude catheter placed. audit clerks supervisor is looking for supplies.
[2022-12-04 22:03] LABS: Add Urine Microscopic? NO; Charge for UA Resulting for Rev
[2022-12-04 22:08] LABS: Bilirubin Urine Neg (Negative); Blood Urine Neg (Negative); Glucose Urine UA Norm (Normal); Ketones Urine Negative (Negative); Leukocyte Esterase Urine Negative (Negative); Nitrate Urine Negative (Negative); Protein Urine Neg (Negative); Specific Gravity, Urine 1.015 (1.005-1.030); Urine Appearance Clear (CLEAR); Urine Color Yellow (Yellow); Urobilinogen Urine Norm (Negative); pH Urine 6.5 (5-7)
--- NOTE | 2022-12-10 08:20 | DCPLANNER ---
Addendum entered by Heavenly Driscoll 12/22/22 10:04: Patient had a follow up appointment with urology - patient did attend appointment. Addendum entered by Heavenly Driscoll 12/14/22 11:43: Patient has a follow up appointment scheduled for Wednesday, December 21, 2022 at 3:[address] Olivo at urology. Original Note: environmental program manager had message to schedule a follow up appointment for patient with urology. environmental program manager sent patients information to the front office staff at urology. Patients information will be printed and reviewed. Clinic will call patient with appointment information.
== END 2022-12-04 23:28 | disposition home or self-care (01) ==
PROVIDERS: Emergency Provider Emergency Medicine; PCP Family Medicine
DX: R33.9 Retention of urine, unspecified (principal); I10 Essential (primary) hypertension; Z85.46 Personal history of malignant neoplasm of prostate
CPT/HCPCS: 51702; 51798; 81003; 99283

== ENCOUNTER 2022-12-19 05:45 | Emergency (ER) | payer MEDICARE, MEDICAID, SELFPAY ==
[2022-12-19 05:58] VITALS: BP 184/106; PULSE 92; RESP 18; TEMP 36.8; O2SAT 99; BMI 21.1
--- NOTE | 2022-12-19 06:38 | W.ED.MALEGU ---
HPI - Male Genitourinary General: Chief complaint: Urogenital-Male Stated complaint: cant void Time Seen by Provider: 12/19/22 05:47 Source: patient Mode of arrival: ambulatory Limitations: no limitations History of Present Illness: 67-year-old male that had a chronic indwelling catheter he had removed himself yesterday states he has not been able to urinate since then he is having pain over his bladder states that he is having retention again. He does have a history of prostate cancer he sees urology on Tuesday denies any fever denies any vomiting or diarrhea. Associated symptoms: Deny dysuria, nausea or vomiting Review of Systems Const: Denies: fever(s) or chills ENMT: Denies: throat pain or dental pain Card: Denies: chest pain Resp: Denies: dyspnea GI: Reports: abdominal pain; Denies: nausea, vomiting or diarrhea : Reports: difficulty urinating; Denies: dysuria Musc: Denies: neck pain or back pain Skin/Breast: Denies: rash Neuro: Denies: headache(s) PFSH ED PFSH: Medical History B12 deficiency Degenerative arthritis HTN (hypertension) Prostate cancer Urinary retention Vitamin D deficiency Surgical History S/P cataract surgery S/P hernia repair (2018) left inguinal hernia repair and history of bilateral inguinal hernia repair in childhood S/P TURP (07/27/16) cystoscopy with transurethral resection/vaporization of the prostate Family History Mother Hypertension Stroke Father Cancer Other Lung disease Denies family history of Diabetes CAD (coronary artery disease) Clotting disorder Dementia Hyperlipidemia Psychiatric illness Chronic kidney disease (CKD) Suicide Anesthesia complication Bleeding disorder Social History Smoking and tobacco status: never smoked Alcohol intake: never Physical Exam Const: COMMON NORMALS: no acute distress and patient oriented x3 HENMT: COMMON NORMALS: normocephalic and atraumatic HEAD & SCALP: normocephalic and atraumatic Eye: COMMON NORMALS: conjunctivae normal CONJUNCTIVA: Yes conjunctivae normal Neck/C-Spine: COMMON NORMALS: full ROM Chest: COMMONS NORMALS: normal inspection of the chest Resp: COMMON NORMALS: normal respiratory effort Cardio: COMMON NORMALS: regular rate and regular rhythm RATE: regular rate RHYTHM: regular rhythm GI: COMMON NORMALS: Normal to inspection, nondistended, normoactive bowel sounds present and Soft to palpation PALPATION: Yes Soft to palpation OTHER: Tenderness over suprapubic region : COMMON NORMALS: Yes no CVA tenderness BLADDER/KIDNEY EXAM: Yes no CVA tenderness Back/Pelvis: COMMON NORMALS: no CVA tenderness Extremity: COMMON NORMALS: normal to inspection Neuro: COMMON NORMALS: patient oriented x3 Psych: COMMON NORMALS: mental status grossly normal Skin: COMMON NORMALS: no rashes or lesions noted GENERAL SKIN EXAM: no rashes or lesions noted Course Vital Signs: Vital signs: Vital Signs Temperature 98.3 F 12/19/22 05:58 Pulse Rate 92 12/19/22 05:58 Respiratory Rate 18 12/19/22 05:58 Blood Pressure 184/106 12/19/22 05:58 Pulse Oximetry 99 12/19/22 05:58 Oxygen Delivery Me thod Room Air 12/19/22 05:58 MDM - Male Medical Decision Making Patient presents with urinary retention after he moved his [place] we did place a new [place] he does have a urinary tract infection we will give him antibiotics he has follow-up with his urologist on Tuesday we will leave Hamilton in place with leg bag he is to follow-up as scheduled Tuesday return if worsening he understands agrees to plan. Differential Diagnosis Likely urinary tract infection and acute retention of urine; Unlikely epididymitis or prostatitis Medical Records I reviewed the patient's medical records. Lab Data Laboratory Results Urine Color Dark yellow (Yellow) 12/19/22 07:24 Urine Appearance Hazy (CLEAR) A 12/19/22 07:24 Urine pH 5 (5-7) 12/19/22 07:24 Ur Specific [place] 1.020 (1.005-1.030) 12/19/22 07:24 Urine Protein 2+ (Negative) H 12/19/22 07:24 Urine Glucose (UA) Norm (Normal) 12/19/22 07:24 Urine Ketones 1+ (Negative) H 12/19/22 07:24 Urine Blood 3+ (Negative) H 12/19/22 07:24 Urine Nitrate Positive (Negative) H 12/19/22 07:24 Urine Bilirubin Neg (Negative) 12/19/22 07:24 Urine Urobilinogen Norm mg/dL (Negative) 12/19/22 07:24 Ur Leukocyte Esterase 2+ (Negative) H 12/19/22 07:24 Urine RBC 5-10 /hpf (0-2) H 12/19/22 07:24 Urine WBC >100 /hpf (0-5) H 12/19/22 07:24 Ur Squamous Epith Cells None /hpf (0-5) 12/19/22 07:24 Amorphous Sediment Not Reportable 12/19/22 07:24 Urine Bacteria 2+ /hpf (NONE) H 12/19/22 07:24 Discharge Plan Discharge Patient Disposition: Home Clinical Impression: Urinary tract infection, Urinary retention Condition: Stable Prescriptions: New cephalexin 500 mg capsule 500 mg PO TID 7 Days Qty: 21 0RF No Action prednisone 5 mg tablet 5 mg PO BID Qty: 60 3RF lorazepam 0.5 mg tablet 0.5 mg PO TID PRN (Reason: anxiety) Qty: 30 1RF EpiPen 2-Fadi 0.3 mg/0.3 mL auto-injector 0.3 mg IM Q10M PRN (Reason: anaphylaxis) Qty: 2 3RF Rx Instructions: for 2 doses prochlorperazine maleate 10 mg tablet 10 mg PO Q6H PRN (Reason: nausea and vomiting) Qty: 30 3RF dexamethasone 4 mg tablet 8 mg PO BID Qty: 30 1RF Rx Instructions: Take the day before and the day after each chemotherapy treatment Flomax 0.4 mg capsule 0.4 mg PO DAILY Qty: 14 0RF prednisone 5 mg Tablet 5 mg PO BID Qty: 42 5RF Rx Instructions: Take on days 1-21 of each cycle Compazine 10 mg tablet 10 mg PO Q4H PRN (Reason: Mild Nausea) Qty: 30 3RF lorazepam 1 mg tablet 0.5 - 1 mg PO Q6H PRN (Reason: Severe Nausea) Qty: 30 3RF Discharge Orders: Discharge ED (Routine); Ordered 12/19/22 Ordered By: Leia Wells Referrals: Ed Gibson MD [Primary Care Provider] - Discharge Diet: Advance as tolerated Discharge Activity: Resume usual activity Patient Instructions: Urinary Retention in Men (ED), Urinary Tract Infection in Men (ED) Coding Level of Care Code ED Ultrasonic Seaming Machine Operator for Sergio Stuart
[2022-12-19 07:47] LABS: Add Urine Microscopic? YES; Bilirubin Urine Neg (Negative); Blood Urine 3+ (Negative); Glucose Urine UA Norm (Normal); Ketones Urine 1+ (Negative); Leukocyte Esterase Urine 2+ (Negative); Nitrate Urine Positive (Negative); Protein Urine 2+ (Negative); Urine Appearance Hazy (CLEAR); Urine Color Dark Yellow (Yellow); Urobilinogen Urine Norm (Negative); pH Urine 5 (5-7)
[2022-12-19 07:48] LABS: Add Urine Culture? Yes; Bacteria Urine 2+ /hpf; WBC Urine >100 /hpf (0-5)
[2022-12-19] MEDS: cefTRIAXone 1,000 MG in water for injection-sterile 2.1 ML 1 MG IM (08:06)
[2022-12-19 08:11] VITALS: BP 184/106; PULSE 92; RESP 18; O2SAT 99
== END 2022-12-19 08:13 | disposition home or self-care (01) ==
PROVIDERS: Emergency Provider Emergency Medicine; PCP Family Medicine
DX: N39.0 Urinary tract infection, site not specified (principal); R33.9 Retention of urine, unspecified; I10 Essential (primary) hypertension; Z85.46 Personal history of malignant neoplasm of prostate
CPT/HCPCS: 51702; 81001; 87086; 96372; 99284; J0696

== ENCOUNTER → 2022-12-21 12:50 | Day surgery (SDC) | payer MEDICARE, MEDICAID, SELFPAY ==
[2022-12-21 13:00] VITALS: BP 162/101; PULSE 114; RESP 18; TEMP 36.5; O2SAT 99
--- NOTE | 2022-12-21 13:00 | PC.NURSE ---
Pt to GI infusions for removal of right PICC line. PICC removed without difficulty. 44 cm total length noted with tip intact. Pressure held until hemostasis obtained. Pt instructed to return to ED for SOB, difficulty breathing, or signs of infection.
== END ==
PROVIDERS: PCP Family Medicine; Visit Provider Internal Medicine Medical Oncology
DX: R33.9 Retention of urine, unspecified (principal); C61 Malignant neoplasm of prostate; C77.8 Secondary and unspecified malignant neoplasm of lymph nodes of multiple regions; Z45.2 Encounter for adjustment and management of vascular access device
CPT/HCPCS: 99205

== ENCOUNTER 2022-12-21 14:00 | Oncology outpatient (recurring) (ONCR) | payer MEDICARE, MEDICAID, SELFPAY ==
[2022-12-07 15:05] VITALS: BP 167/86; PULSE 92; RESP 16; TEMP 36.4; O2SAT 99
[2022-12-14 14:45] VITALS: BP 184/94; PULSE 16; RESP 79; TEMP 36.3; O2SAT 99
== END 2023-01-05 23:59 | disposition home or self-care (01) ==
PROVIDERS: PCP Family Medicine; Visit Provider Internal Medicine Medical Oncology
DX: Z53.9 Procedure and treatment not carried out, unspecified reason (principal)
CPT/HCPCS: J1642

== ENCOUNTER 2023-01-08 14:09 | Emergency (ER) | payer MEDICARE, MEDICAID, SELFPAY ==
[2023-01-08 14:11] VITALS: BP 160/95; PULSE 93; RESP 22; TEMP 36.5; O2SAT 100
--- NOTE | 2023-01-08 14:33 | W.ED.MALEGU ---
HPI - Male Genitourinary General: Chief complaint: Urogenital-Male Stated complaint: trouble urinating Time Seen by Provider: 01/08/23 14:28 Source: patient Mode of arrival: ambulatory Limitations: no limitations History of Present Illness: 67-year-old male who has a history of prostate cancer he is not currently on chemo or radiation he had had a indwelling Hamilton he states that he pulled it this morning because it was draining around it and he was having some pain he pulled it himself he states that since then he has not been able to urinate. He states he is having severe suprapubic pain due to his bladder being full denies any fever. Associated symptoms: Deny dysuria, nausea or vomiting Review of Systems Const: Denies: fever(s), chills, body aches or change in appetite Eyes: Denies: blurry vision or eye discomfort ENMT: Denies: throat pain or dental pain Card: Denies: chest pain Resp: Denies: dyspnea GI: Reports: abdominal pain; Denies: nausea, vomiting or diarrhea : Reports: difficulty starting urination; Denies: dysuria Musc: Denies: neck pain or back pain Skin/Breast: Denies: rash Neuro: Denies: headache(s) Psych: Denies: depression Stuart/Lymph: Denies: easy bruising All/Imm: Denies: urticaria PFSH ED PFSH: Medical History B12 deficiency Degenerative arthritis HTN (hypertension) Prostate cancer Urinary retention Vitamin D deficiency Surgical History S/P cataract surgery S/P hernia repair (2018) left inguinal hernia repair and history of bilateral inguinal hernia repair in childhood S/P TURP (07/27/16) cystoscopy with transurethral resection/vaporization of the prostate Family History Mother Hypertension Stroke Father Cancer Other Lung disease Denies family history of Diabetes CAD (coronary artery disease) Clotting disorder Dementia Hyperlipidemia Psychiatric illness Chronic kidney disease (CKD) Suicide Anesthesia complication Bleeding disorder Social History Smoking and tobacco status: never smoked Alcohol intake: never Marital status: Physical Exam Const: COMMON NORMALS: no acute distress, patient oriented x3 and healthy appearing HENMT: COMMON NORMALS: normocephalic and atraumatic HEAD & SCALP: normocephalic and atraumatic Neck/C-Spine: COMMON NORMALS: full ROM and supple Chest: COMMONS NORMALS: normal inspection of the chest Resp: COMMON NORMALS: normal respiratory effort Cardio: COMMON NORMALS: regular rate, regular rhythm and No murmurs present (Cardio) RATE: regular rate RHYTHM: regular rhythm GI: COMMON NORMALS: Normal to inspection, nondistended, normoactive bowel sounds present, Soft to palpation and no masses PALPATION: Yes Soft to palpation OTHER: suprapubic tendernes Extremity: COMMON NORMALS: normal to inspection and full ROM Neuro: COMMON NORMALS: patient oriented x3, moves all extremities and no focal motor deficits Psych: COMMON NORMALS: mental status grossly normal, Normal thought process present and cooperative THOUGHT PROCESS: Normal thought process present Skin: COMMON NORMALS: no rashes or lesions noted and no wounds GENERAL SKIN EXAM: no rashes or lesions noted Course Vital Signs: Vital signs: Vital Signs Temperature 97.7 F 01/08/23 14:11 Pulse Rate 81 01/08/23 15:56 Respiratory Rate 22 H 01/08/23 14:11 Blood Pressure 160/95 01/08/23 14:11 Pulse Oximetry 100 01/08/23 15:56 Oxygen Delivery Me thod Room Air 01/08/23 14:11 MDM - Male Medical Decision Making Patient presents here with urinary retention he feels much improved after Hamilton placement he does have a UTI we will start him on Keflex he has follow-up with urology this week he is to follow-up as scheduled return if worsening. Medical Records I reviewed the patient's medical records. Lab Data I reviewed the patient's lab results. Laboratory Results Urine Color Yellow (Yellow) 01/08/23 14:40 Urine Appearance Cloudy (CLEAR) A 01/08/23 14:40 Urine pH 8 (5-7) H 01/08/23 14:40 Ur Specific [place] 1.015 (1.005-1.030) 01/08/23 14:40 Urine Protein 1+ (Negative) H 01/08/23 14:40 Urine Glucose (UA) Norm (Normal) 01/08/23 14:40 Urine Ketones Negative (Negative) 01/08/23 14:40 Urine Blood 3+ (Negative) H 01/08/23 14:40 Urine Nitrate Negative (Negative) 01/08/23 14:40 Urine Bilirubin Neg (Negative) 01/08/23 14:40 Prot Sulfosalicylic Acd Positive (Negative) 01/08/23 14:40 Urine Urobilinogen Norm mg/dL (Negative) 01/08/23 14:40 Ur Leukocyte Esterase 1+ (Negative) H 01/08/23 14:40 Urine RBC >100 /hpf (0-2) H 01/08/23 14:40 Urine WBC 5-10 /hpf (0-5) H 01/08/23 14:40 Ur Squamous Epith Cells None /hpf (0-5) 01/08/23 14:40 Amorphous Sediment Not Reportable 01/08/23 14:40 Urine Bacteria 2+ /hpf (NONE) H 01/08/23 14:40 Discharge Plan Discharge Patient Disposition: Home Clinical Impression: Acute retention of urine, Urinary tract infection Condition: Stable Prescriptions: New cephalexin 500 mg capsule 500 mg PO TID 7 Days Qty: 21 0RF Discontinued cephalexin 500 mg capsule 500 mg PO BID No Action lorazepam 0.5 mg tablet 0.5 mg PO TID PRN (Reason: anxiety) Qty: 30 1RF EpiPen 2-Fadi 0.3 mg/0.3 mL auto-injector 0.3 mg IM Q10M PRN (Reason: anaphylaxis) Qty: 2 3RF Rx Instructions: for 2 doses prochlorperazine maleate 10 mg tablet 10 mg PO Q6H PRN (Reason: nausea and vomiting) Qty: 30 3RF dexamethasone 4 mg tablet 8 mg PO BID Qty: 30 1RF Rx Instructions: Take the day before and the day after each chemotherapy treatment morphine 15 mg tablet 15 mg PO Q4H PRN (Reason: pain) 30 Days Qty: 120 0RF tramadol 50 mg tablet 50 mg PO QID PRN (Reason: pain) Qty: 60 0RF metoclopramide HCl [Reglan] 5 mg tablet 5 mg PO .AC & HS PRN (Reason: nausea and vomiting) Qty: 120 0RF Discharge Orders: Discharge ED (Routine); Ordered 01/08/23 Ordered By: Leia Wells Referrals: Ed Gibson MD [Primary Care Provider] - Discharge Diet: Advance as tolerated Discharge Activity: Resume usual activity Patient Instructions: Urinary Retention in Men (ED), Opioid Safety, Pain Management Coding Level of Care Code ED Application Security Architect for Sergio Stuart
[2023-01-08 15:20] LABS: Blood Urine 3+ (Negative); Glucose Urine UA Norm (Normal); Ketones Urine Negative (Negative); Nitrate Urine Negative (Negative); Protein Urine 1+ (Negative); Specific Gravity, Urine 1.015 (1.005-1.030); Urine Appearance Cloudy (CLEAR); Urine Color Yellow (Yellow); pH Urine 8 (5-7)
[2023-01-08 15:21] LABS: Add Urine Culture? Yes; Add Urine Microscopic? YES; Bacteria Urine 2+ /hpf; Bilirubin Urine Neg (Negative); Leukocyte Esterase Urine 1+ (Negative); RBC Urine >100 /hpf (0-2); Sulfosalicylic Acid Urine Positive (Negative); Urobilinogen Urine Norm (Negative)
[2023-01-08] MEDS: hyDRALAzine 20 mg/mL INJ 1 mL 10 MG IM (15:47)
[2023-01-08] MEDS: cefTRIAXone 1,000 MG in water for injection-sterile 2.1 ML 2 MG IM (15:47)
[2023-01-08 15:56] VITALS: PULSE 81; O2SAT 100
== END 2023-01-08 15:57 | disposition home or self-care (01) ==
PROVIDERS: Emergency Provider Emergency Medicine; PCP Family Medicine
DX: R33.9 Retention of urine, unspecified (principal); N39.0 Urinary tract infection, site not specified
CPT/HCPCS: 51702; 81001; 87086; 96372; 99284; J0360; J0696

== ENCOUNTER → 2023-01-12 15:50 | Outpatient (BNVA) | payer MEDICARE, MEDICAID, SELFPAY | PROVIDERS: PCP Family Medicine; Visit Provider Urology | DX: C61 Malignant neoplasm of prostate; C77.8 Secondary and unspecified malignant neoplasm of lymph nodes of multiple regions; R33.9 Retention of urine, unspecified | CPT/HCPCS: 99214 ==

== ENCOUNTER 2023-01-19 11:04 | Day surgery (SDC) | payer MEDICARE, MEDICAID, SELFPAY ==
[2023-01-17 14:45] VITALS: BMI 19.5
--- NOTE | 2023-01-17 15:01 | P.ANESASSM_ITS ---
Pre-Anesthetic Assessment Height/Weight: Height 1.85 m Weight 67.132 kg Operation Date: 01/19/23 12:00 Proposed Procedures p Suprapubic Catheter Placement(Not Applicable) - Vladimir Olivo MD s CYSTOSCOPY, SUPRAPUBIC TUBE PLACEMENT (PERCUTANEOUS VS OPEN) 72748, R33.9(Not Applicable) - Vladimir Olivo MD Familial anesthetic complications: none Was Beta Mary taken within 24 hours: N/A Was Clonidine taken within 24 hours: N/A Social No alcohol and No tobacco Exam alert, oriented x 3, clear to auscultation bilaterally and regular rate & rhythm Airway Submandibular: within normal limits Cervical ROM: within normal limits Mallampati: Class II Dentition: chipped and loose Comments: Comments: Poor dentition CV/HEM Anemia and Hypertension Musc/skel Osteoarthritis/DJD Neuropsych Anxiety Chronic pain Anesthetic Plan ASA status: 3 Anesthesia: General Medications/Allergies Home Medications Medication Instructions Recorded Confirmed Last Taken Type dexamethasone 4 mg tablet 8 mg PO BID #30 tabs 11/05/22 01/17/23 01/17/23 Rx prochlorperazine maleate 10 mg 10 mg PO Q6H PRN nausea and 11/05/22 01/17/23 12/21/22 Rx tablet vomiting #30 tabs lorazepam 0.5 mg tablet 0.5 mg PO TID PRN anxiety #30 tabs 11/08/22 01/17/23 01/17/23 Rx epinephrine 0.3 mg/0.3 mL 0.3 mg (0.3 mL) IM Q10M PRN 11/30/22 01/17/23 12/21/22 Rx injection, auto-injector (EpiPen anaphylaxis #2 ea 2-Fadi) morphine 15 mg immediate release 15 mg PO Q4H PRN pain 30 days #120 12/21/22 01/17/23 Unknown Rx tablet tabs metoclopramide HCl 5 mg tablet 5 mg PO .AC & HS PRN nausea and 01/06/23 01/17/23 01/17/23 Rx (Reglan) vomiting #120 tabs tramadol 50 mg tablet 50 mg PO QID PRN pain #60 tabs 01/06/23 01/17/23 Unknown Rx cephalexin 500 mg tablet 500 mg PO BID 01/17/23 01/17/23 Unknown History Allergies Allergy/AdvReac Type Severity Reaction Status Date / Time bee venom protein (honey bee) Allergy ALGY-Anaphy Verified 01/17/23 14:42 laxis [facility] Anesthesia Medical History (Updated 01/17/23 @ 09:58 by Italo Heath MD) B12 deficiency Degenerative arthritis HTN (hypertension) Prostate cancer Urinary retention Vitamin D deficiency Surgical History S/P cataract surgery S/P hernia repair (2017) left inguinal hernia repair and history of bilateral inguinal hernia repair in childhood S/P TURP (07/27/16) cystoscopy with transurethral resection/vaporization of the prostate Family History Mother Hypertension Stroke Father Cancer Other Lung disease Denies family history of Diabetes CAD (coronary artery disease) Clotting disorder Dementia Hyperlipidemia Psychiatric illness Chronic kidney disease (CKD) Suicide Anesthesia complication Bleeding disorder Social History Smoking and tobacco status: never smoked Alcohol intake: never Marital status: Data Anesthesia Cardiac Studies: No Data to Display
[2023-01-19] VITALS (15 sets, daily range): BP systolic 163–200; BP diastolic 99–118; PULSE 71–100; RESP 12–18; TEMP 36.2–36.6; O2SAT 99–100
[2023-01-19] MEDS: sodium chloride 0.9% 1,000 ML 30 ML IV (12:01)
--- NOTE | 2023-01-19 12:57 | W.PM.OPSUD ---
Surgery/Procedure H&P Update DATE OF PROCEDURE: January 19, 2023 DATE H&P PERFORMED: 01/12/23 H&P UPDATE INFORMATION: I have reviewed H&P completed within last 30 days, I have examined patient prior to procedure, No changes to prior documentation and H&P is in [facility] [place] on date indicated CHANGES TO PREVIOUS DOCUMENTATION: We reviewed again that he may require open suprapubic tube placement if the fixation of the prostate secondary to invasive prostate cancer prevents adequate visualization via endoscopy. PREOP DIAGNOSIS: Chronic urinary retention, locally invasive prostate cancer PLANNED PROCEDURE: Operation Date: 01/19/23 12:30 Proposed Procedures p Suprapubic Catheter Placement(Not Applicable) - Vladimir Olivo MD s CYSTOSCOPY, SUPRAPUBIC TUBE PLACEMENT (PERCUTANEOUS VS OPEN) 16604, R33.9(Not Applicable) - Vladimir Olivo MD
--- NOTE | 2023-01-19 12:59 | PM.OP ---
Operative Report Date of procedure: January 19, 2023 Pre-op diagnosis: 1. Chronic urinary retention secondary to locally invasive prostate cancer Post-op diagnosis: 1. Chronic urinary retention secondary to locally invasive prostate cancer Procedure done: Cystoscopy, percutaneous suprapubic tube placement Implants: Suprapubic tube Specimens removed/disposition: None Pathology: None Surgeon: Following Estimated blood loss: Minimal Urine output: Not measured Complications: None Findings: Anesthesia: General Condition: Stable Disposition: PACU Intraoperative findings: Prostate was architecturally abnormal due to invasive prostate cancer. Suprapubic tube placed percutaneously under cystoscopic guidance without difficulty. Good function good position. Brief History: Shiva is a very pleasant unfortunate 67-year-old white male with progressive prostate cancer metastatic. He has developed urinary retention chronically secondary to locally invasive disease. Poorly tolerates a indwelling urethral catheter and request suprapubic tube. He has a very large fixed prostate by history and exam and reviewed that it might require an open incision to place a suprapubic tube if access is inadequate through the urethra. Procedure: After routine preoperative evaluation examination and obtaining of informed consent he was taken to the operating suite on 01/19/2023 where general anesthesia was administered without difficulty after appropriate timeout was performed, SCDs confirmed to be functioning, preoperative antibiotics administered, beta-denise protocol confirmed. Prepped and draped in the usual sterile fashion in dorsolithotomy position pain careful attention to avoiding pressure points. Flexible cystoscope was passed into the urethra into the bladder. The bladder was systematically examined. Drained and then refilled and distended. Bladder was palpable in the suprapubic area. A long spinal needle was utilized to localize the appropriate position for the suprapubic tube about 3 finger with breaths above the symphysis in the midline with expected entry point into the bladder. A puncture incision was made with a 10 blade. Incision was taken down to and into the fascia. [place] sheath was inner punch trocar was utilized. It was introduced into the puncture wound and under direct vision passed into the bladder. Trocar was withdrawn slowly. An 18 [place] catheter was advanced through the 20 [place] sheath and the balloon was inflated. The sheath was then peeled away and removed. Position of the catheter was confirmed position just below the lateral wall problems. 2 nonabsorbable heavy sutures were utilized to secure the balloon to the skin. Catheter was irrigated confirmed to be functioning. Wound was dressed and the procedure was completed. He tolerated procedure well without complications and was awakened in the operating room and returned to the recovery room in stable condition. PLANS: 1. Anticipate discharge from outpatient surgery 2. Follow-up for first suprapubic tube change to be arranged.
[2023-01-19] MEDS: levofloxacin-dextrose 5 % 500 MG/100 ML PREMIX 100 MG IV (13:05)
[2023-01-19] MEDS: neomycin-poly-bacitracin oint 28 gm 1 APPLIC TOPICAL (13:34)
--- NOTE | 2023-01-19 13:46 | P.ANESUD_ITS ---
Pre-Anesthetic Update Pre-Anesthetic Assessment: Date of Surgery/Procedure: 01/19/23 Preop Penny gnosis: Chronic urinary retention, locally invasive prostate cancer Proposed Procedure: Operation Date: 01/19/23 12:30 Proposed Procedures p Suprapubic Catheter Placement(Not Applicable) - Vladimir Olivo MD s CYSTOSCOPY, SUPRAPUBIC TUBE PLACEMENT (PERCUTANEOUS VS OPEN) 76842, R33.9(Not Applicable) - Vladimir Olivo MD Any changes to Pre-Anesthetic Assessment?: No Last Intake: Intake Last Liquid Date 01/18/23 Last Liquid Time 20:00 Last Solid Date 01/18/23 Last Solid Time 18:00 Vitals: Temperature 97.7 F 01/19/23 11:22 Temperature Source Temporal Artery S can 01/19/23 11:22 Pulse Rate 98 01/19/23 11:22 Pulse Rhythm Regular 01/19/23 11:24 Pulse Strength 3+ Normal 01/19/23 11:24 Respiratory Rate 16 01/19/23 11:22 Blood Pressure 175/110 01/19/23 11:22 Blood Pressure Nayeli n 131 01/19/23 11:22 Pulse Oximetry 100 01/19/23 11:22 Oxygen Delivery Me thod Room Air 01/19/23 11:24 Exam: Pre-Anes Outpt Exam: alert, oriented x 3, clear to auscultation bilaterally and regular rate & rhythm Cardiac Studies: No Data to Display
[2023-01-19] MEDS: ondansetron 2 mg/ML SDV 2 mL 4 MG IVP ×2 (14:26→16:30)
--- NOTE | 2023-01-19 14:56 | SUR.PHASEII ---
medicated for nausea. red tinged urine in leg bag.supra pubic dressing clean and intact.
--- NOTE | 2023-01-19 14:57 | ANE.PACU2 ---
Inpatient post-anesthesia follow up: Airway intact: Yes Vital signs: Temperature 97.4 F Pulse Rate 82 Respiratory Rate 12 Blood Pressure 184/115 Pulse Oximetry 100 Oxygen Delivery Me thod Room Air Oxygen Flow Rate 6 Fraction of Inspir ed Oxygen Hydration adequate: Yes Nausea and vomiting: No Pain level: 2 Mental status: Baseline
--- NOTE | 2023-01-19 15:06 | SUR.PHASEII ---
PATIENT'S CONDITION REVIEWED WITH DOCTOR COTE. PATIENT MEDICATED FOR PAIN AND ELEVATED BLOOD PRESSURE.
[2023-01-19] MEDS: HYDROmorphone 1 mg/mL INJ 1 mL 0.5 MG IVP (15:08)
[2023-01-19] MEDS: metoprolol tartrate 1 mg/1 mL SDV 5 mL 5 MG IVP (15:35)
== END 2023-01-19 16:50 | disposition home or self-care (01) ==
PROVIDERS: PCP Family Medicine; Visit Provider Urology
PROC: (CPT 51102; principal; 2023-01-19 12:30)
PROC: 0TJB8ZZ Inspection of Bladder, Via Natural or Artificial Opening Endoscopic (ICD-10-PCS; CPT 52000; 2023-01-19 12:30)
DX: R33.9 Retention of urine, unspecified (principal); C61 Malignant neoplasm of prostate; C79.11 Secondary malignant neoplasm of bladder; C77.8 Secondary and unspecified malignant neoplasm of lymph nodes of multiple regions; I10 Essential (primary) hypertension
CPT/HCPCS: 51040; J1100; J1170; J1956; J2250; J2405; J2704; J3010; J3490; J7030

== ENCOUNTER 2023-01-23 13:28 | Emergency (ER) | payer MEDICARE, MEDICAID, SELFPAY ==
[2023-01-23 13:30] VITALS: BP 226/41; PULSE 95; RESP 18; TEMP 36.8; O2SAT 98; BMI 25.9
--- NOTE | 2023-01-23 13:37 | ED_ITS ---
HPI - Male Genitourinary General: Chief complaint: Urogenital-Male Stated complaint: surgery on tuesday, can't urinate Time Seen by Provider: 01/23/23 13:36 History of Present Illness: Mr. Cyr is a 67-year-old gentleman with significant past medical history of prostate cancer with urinary retention postop day 4 from suprapubic catheter placement presenting to the emergency department for abdominal pain and urinary retention. He has noticed still having some blood in the catheter however this was still draining normally last night. This morning he noticed more blood and subsequently has not had output in the bag for a number of hours. He notes abdominal fullness and discomfort. No other specific changes in health, exacerbating, or alleviating factors identified. Onset (ago): hour(s) Duration: progressively worsening Severity: moderate Quality: aching Context: recent surgery Associated symptoms: Reports urinary retention Review of Systems General: Reports: 10 or more systems reviewed and unremarkable except in HPI a nd below PFSH ED PFSH: Medical History B12 deficiency Degenerative arthritis HTN (hypertension) Prostate cancer Urinary retention Vitamin D deficiency Surgical History S/P cataract surgery S/P hernia repair (2018) left inguinal hernia repair and history of bilateral inguinal hernia repair in childhood S/P TURP (07/27/16) cystoscopy with transurethral resection/vaporization of the prostate Family History Mother Hypertension Stroke Father Cancer Other Lung disease Denies family history of Diabetes CAD (coronary artery disease) Clotting disorder Dementia Hyperlipidemia Psychiatric illness Chronic kidney disease (CKD) Suicide Anesthesia complication Bleeding disorder Social History Smoking and tobacco status: never smoked Alcohol intake: never Marital status: Physical Exam Const: COMMON NORMALS: alert GENERAL APPEARANCE: cooperative and well developed HENMT: COMMON NORMALS: normocephalic and atraumatic HEAD & SCALP: normocephalic and atraumatic Eye: COMMON NORMALS: conjunctivae normal CONJUNCTIVA: Yes conjunctivae normal SCLERA: sclerae normal Neck/C-Spine: COMMON NORMALS: supple GENERAL: Yes trachea midline Resp: COMMON NORMALS: clear to auscultation bilaterally EFFORT & INSPECTION: Yes able to speak in complete sentences AUSCULTATION: clear to auscultation bilaterally Cardio: COMMON NORMALS: regular rate and regular rhythm RATE: regular rate RHYTHM: regular rhythm GI: COMMON NORMALS: Soft to palpation PALPATION: Yes Soft to palpation, Yes Tenderness to palpation present (GI), No Guarding due to palpation present (GI) and No Rigid due to palpation OTHER: Fullness and tenderness palpation in the suprapubic region. No evidence of acute surgical abdomen or peritonitis. No evidence of postoperative complication/infection. Extremity: GENERAL: Yes normal exam except as noted and No edema Neuro: COMMON NORMALS: moves all extremities SENSORIUM/ORIENTATION: Yes alert and No Orientation impaired Psych: COMMON NORMALS: mental status grossly normal and Normal thought process present THOUGHT PROCESS: Normal thought process present Course Vital Signs: Vital signs: Vital Signs Temperature 98.2 F 01/23/23 13:30 Pulse Rate 95 01/23/23 13:30 Respiratory Rate 18 01/23/23 13:30 Blood Pressure 226/41 01/23/23 13:30 Pulse Oximetry 98 01/23/23 13:30 Oxygen Delivery Me thod Room Air 01/23/23 13:30 MDM - Male Medical Decision Making 67-year-old gentleman presenting with concern over recent suprapubic catheter placement with decreased urine output. Exam as above. Patient is nontoxic however somewhat uncomfortable. Hypertension likely secondary to discomfort. No evidence of displacement of suprapubic catheter and sutures remain intact. There is in fact essentially no drainage and the previously emptied urinary catheter bag. Catheter was flushed with successful drainage. No lorrie hematuria was identified. Initially mild concern for only return of infused fluids however [id number] ultrasound reveals no fluid collection and no significant distention of bladder. With ambulation patient had additional nonbloody urine output. He reports complete resolution of pain. Hypertension was improved after treatment. I discussed likely etiologies of symptoms and somewhat less than expected return though patient denies flank pain or other changes. I think likely the catheter either just occluded against bladder wall or had a small blockage which was successfully removed with irrigation. He is comfortable foregoing additional ED evaluation at this time and understands strict return precautions. The results of ED evaluation were discussed with the patient including prescriptions and/or symptomatic cares (if applicable) including appropriate and responsible use, followup plan, and return precautions. The patient verbalized understanding and felt safe for discharge. Medical Records I reviewed the patient's medical records. Lab Data I reviewed the patient's lab results. Discharge Plan Discharge Patient Disposition: Home Clinical Impression: Suprapubic catheter dysfunction Condition: Stable Prescriptions: No Action lorazepam 0.5 mg tablet 0.5 mg PO TID PRN (Reason: anxiety) Qty: 30 1RF EpiPen 2-Fadi 0.3 mg/0.3 mL auto-injector 0.3 mg IM Q10M PRN (Reason: anaphylaxis) Qty: 2 3RF Rx Instructions: for 2 doses prochlorperazine maleate 10 mg tablet 10 mg PO Q6H PRN (Reason: nausea and vomiting) Qty: 30 3RF dexamethasone 4 mg tablet 8 mg PO BID Qty: 30 1RF Rx Instructions: Take the day before and the day after each chemotherapy treatment morphine 15 mg tablet 15 mg PO Q4H PRN (Reason: pain) 30 Days Qty: 120 0RF tramadol 50 mg tablet 50 mg PO QID PRN (Reason: pain) Qty: 60 0RF metoclopramide HCl [Reglan] 5 mg tablet 5 mg PO .AC & HS PRN (Reason: nausea and vomiting) Qty: 120 0RF cephalexin 500 mg Tablet 500 mg PO BID Discharge Orders: Discharge ED (Routine); Ordered 01/23/23 Ordered By: Kedar Gordillo Referrals: Ed Gibson MD [Primary Care Provider] - Discharge Diet: Usual diet Discharge Activity: Limit activity as instructed Patient Instructions: How to Care for Your Suprapubic Catheter (DC) Activity Restrictions/Additional Instructions: Thank you for visiting the emergency department. You were seen and evaluated for abdominal pain and concern for blocked suprapubic catheter. The exact cause of symptoms is unclear though we are pleased that you had improvement with flushing catheter and you have normal urine output at this point. Please follow all previously given instructions regarding postoperative care. Return to the emergency department for recurrent pain, decreased urine output, fevers, or anything else that you are concerned about and feel needs emergency department evaluation. Coding Level of Care Code ED Reference Services Head for Sergio Stuart
== END 2023-01-23 15:38 | disposition home or self-care (01) ==
PROVIDERS: Emergency Provider Emergency Medicine; PCP Family Medicine
DX: T83.090A Other mechanical complication of cystostomy catheter, initial encounter (principal); Y73.2 Prosthetic and other implants, materials and accessory gastroenterology and urology devices associated with adverse incidents
CPT/HCPCS: 99282

== ENCOUNTER 2023-02-01 15:00 | Oncology outpatient (recurring) (ONCR) | payer MEDICARE, MEDICAID, SELFPAY ==
[2023-01-18 11:45] VITALS: BP 146/97; PULSE 93; RESP 18; TEMP 36.3; O2SAT 98
[2023-01-18] MEDS: cyanocobalamin 1,000 mcg/mL SDV 1000 MCG IM (12:03)
[2023-01-18 12:05] VITALS: BP 159/98; PULSE 90; RESP 16; TEMP 36.2; O2SAT 98
[2023-01-25] MEDS: cyanocobalamin 1,000 mcg/mL SDV 1000 MCG IM (15:32)
== END 2023-02-04 23:59 | disposition home or self-care (01) ==
PROVIDERS: PCP Family Medicine; Visit Provider Internal Medicine Medical Oncology
DX: C61 Malignant neoplasm of prostate
CPT/HCPCS: 96372; 96401; 99214; J3420

== ENCOUNTER 2023-02-04 16:18 | Emergency (ER) | payer MEDICARE, MEDICAID, SELFPAY ==
[2023-02-04 16:23] VITALS: BP 163/97; PULSE 94; RESP 16; TEMP 36.8; O2SAT 99; BMI 23.6
--- NOTE | 2023-02-04 19:01 | CTR_ITS ---
PROCEDURE INFORMATION: Exam: CT Abdomen And Pelvis Without Contrast Exam date and time: 02/04/2023 7:09 PM Age: 67 years old Clinical indication: Abdominal pain; Localized; Lower; Prior surgery; Surgery date: 6+ months; Surgery type: Hernia repair. Turp. Indwelling catheter. Patient HX: Pelvic pain with urinary retention. Prostate cancer. ; Additional info: Urinary retention, pelvic pain, suprapubic catheter TECHNIQUE: Imaging protocol: Computed tomography of the abdomen and pelvis without contrast. Radiation optimization: All CT scans at this facility use at least one of these dose optimization techniques: automated exposure control; mA and/or kV adjustment per patient size (includes targeted exams where dose is matched to clinical indication); or iterative reconstruction. REPORTING DATA: Count of CT and Cardiac NM exams in prior 12 months: This patient has received 0 known CTs and 0 known cardiac nuclear medicine studies in the 12 months prior to the current study. COMPARISON: CT chest abdpel w/*[id number] 06/09/2021 9:46 AM RADIATION DOSE METRICS: Total DLP (mGy-cm): 359.15 FINDINGS: Liver: Normal. No mass. Gallbladder and bile ducts: Normal. No calcified stones. No ductal dilation. Pancreas: Normal. No ductal dilation. Spleen: Normal. No splenomegaly. Adrenal glands: Normal. No mass. Kidneys and ureters: Severe left hydronephrosis with columning of the left ureter to the pelvis. No calculus. There has been atrophy of the left kidney. The right kidney is normal. Stomach and bowel: The stomach is decompressed with no definite wall thickening. The small bowel and colon are unremarkable. No wall thickening or obstruction. Appendix: The appendix is visualized and is normal. Intraperitoneal space: Unremarkable. No free air. No significant fluid collection. Vasculature: Unremarkable. No abdominal aortic aneurysm. Lymph nodes: Numerous enlarged retroperitoneal and iliac chain lymph nodes have increased significantly in size. The largest retroperitoneal lymph node measures 3.3 cm. The largest iliac chain lymph node on the left measures 6.1 cm. Bilateral inguinal lymph nodes have increased significantly in size, with the largest lymph node measuring 3.4 cm on the left. Urinary bladder: See Reproductive finding. The line suprapubic catheter with balloon in the urinary bladder which is partially distended with urine. Reproductive: Lobulated enlarged prostate which has increased significantly in size measuring 5.7 x 6.1 cm. This appears to invade the posterior urinary bladder wall. Bones/joints: Mild L1 vertebral body pathologic fracture with large sclerotic lesion in the L1 vertebral body and right pedicle. Small blastic lesion in the T11 vertebral body. Small blastic lesions in the right iliac bone. Soft tissues: Severe subcutaneous soft tissue edema in the pubic mons region. CT/CT abdomen pelvis wo con [id number] IMPRESSION: 1. Significantly larger prostate mass which appears to invade the posterior urinary bladder. 2. Severe left hydronephrosis with atrophy of the left kidney. This is likely due to obstruction of the ureter by the prostate mass. 3. Significantly worsened retroperitoneal, iliac chain, and inguinal lymphadenopathy. This is consistent with metastatic disease. 4. Severe soft tissue edema in the pubic mons region. This could represent lymph edema but infection is not excluded. 5. Increased blastic bony metastatic disease with a pathologic L1 fracture.
--- NOTE | 2023-02-04 19:03 | W.ED.MALEGU ---
HPI - Male Genitourinary General: Chief complaint: Urogenital-Male Stated complaint: blocked urine bag Time Seen by Provider: 02/04/23 18:54 History of Present Illness: Patient is here for suprapubic catheter dysfunction. Patient says he is not producing any urine does not have any urine in his bag. Patient and son did request a CT scan of his abdomen and pelvis. This is a second time in approximately 2 weeks this is happened. He does have abdominal fullness and lower abdominal pelvic pressure. He has his catheter for acute urinary retention. He has a history of malignant neoplasm of the prostate. Review of Systems General: Reports: 10 or more systems reviewed and unremarkable except in HPI and below PFSH ED PFSH: Medical History B12 deficiency Degenerative arthritis HTN (hypertension) Prostate cancer Urinary retention Vitamin D deficiency Surgical History S/P cataract surgery S/P hernia repair (2018) left inguinal hernia repair and history of bilateral inguinal hernia repair in childhood S/P TURP (07/27/16) cystoscopy with transurethral resection/vaporization of the prostate Family History Mother Hypertension Stroke Father Cancer Other Lung disease Denies family history of Diabetes CAD (coronary artery disease) Clotting disorder Dementia Hyperlipidemia Psychiatric illness Chronic kidney disease (CKD) Suicide Anesthesia complication Bleeding disorder Social History Smoking and tobacco status: never smoked Alcohol intake: never Marital status: Physical Exam Const: COMMON NORMALS: no acute distress, average body habitus, patient oriented x3, no limitations, healthy appearing, alert and well nourished HENMT: COMMON NORMALS: normocephalic, atraumatic, hearing grossly normal bilaterally, external ears normal, Normal external nose present and moist oral mucous membranes HEAD & SCALP: normocephalic and atraumatic NOSE: Normal external nose present EXTERNAL EAR: Yes external ears normal Eye: COMMON NORMALS: Equal, round and reactive pupils present, EOMs intact bilaterally, conjunctivae normal and no scleral icterus CONJUNCTIVA: Yes conjunctivae normal PUPIL: Yes Equal, round and reactive pupils present Neck/C-Spine: COMMON NORMALS: no JVD Chest: COMMONS NORMALS: normal inspection of the chest and normal palpation of entire chest wall Resp: COMMON NORMALS: normal respiratory effort, No retractions, No use of accessory muscles and clear to auscultation bilaterally AUSCULTATION: clear to auscultation bilaterally Cardio: COMMON NORMALS: no JVD, regular rate, regular rhythm, S1 normal heart sound present, S2 normal heart sound present, No gallops present (Cardio), No clicks present (Cardio), No murmurs present (Cardio) and No rub (Cardio) RATE: regular rate RHYTHM: regular rhythm HEART SOUNDS: S1 normal heart sound present and S2 normal heart sound present GI: COMMON NORMALS: Normal to inspection, nondistended, normoactive bowel sounds present, Soft to palpation, non-tender, No hepatosplenomegaly present and no masses PALPATION: Yes Soft to palpation and Yes No hepatosplenomegaly present : COMMON NORMALS: Yes no CVA tenderness BLADDER/KIDNEY EXAM: Yes no CVA tenderness Back/Pelvis: COMMON NORMALS: no CVA tenderness Neuro: COMMON NORMALS: patient oriented x3 SENSORIUM/ORIENTATION: Yes alert Course Vital Signs: Vital signs: Vital Signs Temperature 98.2 F 02/04/23 16:23 Pulse Rate 94 02/04/23 16:23 Respiratory Rate 16 02/04/23 16:23 Blood Pressure 163/97 02/04/23 16:23 Pulse Oximetry 99 02/04/23 16:23 Oxygen Delivery Me thod Room Air 02/04/23 16:23 MDM - Male Medical Decision Making Presents to the ER with suprapubic catheter malfunction. Is not draining. He has a current history of malignant prostate cancer metastasized throughout the abdomen and invaded into the bladder. This is happened several times where he comes in to get it flushed and that is good for several more days. Nurse flushed it got sediment out and now is draining improved. Patient did get a CT of the abdomen which looks like his cancer is worse. This was all discussed with the patient but this is about all we can do. May be talking to Dr. Olivo and or the urologist that takes his place might be able to do something. Patient and son understood these instructions and will be discharged home. Differential Diagnosis Likely acute retention of urine; Unlikely urinary tract infection, priapism, urethritis, epididymitis, genital herpes simplex, prostatitis or inguinal hernia Medical Records I reviewed the patient's medical records. Lab Data I reviewed the patient's lab results. Radiology Impressions Abdomen/Pelvis CT 02/04/23 19:01 IMPRESSION: 1. Significantly larger prostate mass which appears to invade the posterior urinary bladder. 2. Severe left hydronephrosis with atrophy of the left kidney. This is likely due to obstruction of the ureter by the prostate mass. 3. Significantly worsened retroperitoneal, iliac chain, and inguinal lymphadenopathy. This is consistent with metastatic disease. 4. Severe soft tissue edema in the pubic mons region. This could represent lymph edema but infection is not excluded. 5. Increased blastic bony metastatic disease with a pathologic L1 fracture. Discharge Plan Discharge Patient Disposition: Home Clinical Impression: Malfunction of indwelling urinary catheter Qualifiers: Encounter type: initial encounter Qualified Code(s): T83.011A - Breakdown (mechanical) of indwelling urethral catheter, initial encounter Condition: Stable Prescriptions: New sodium chloride 0.9 % solution 1 irrig irrigation QID PRN (Reason: wound care) Qty: 1000 0RF No Action lorazepam 0.5 mg tablet 0.5 mg PO TID PRN (Reason: anxiety) Qty: 30 1RF EpiPen 2-Fadi 0.3 mg/0.3 mL auto-injector 0.3 mg IM Q10M PRN (Reason: anaphylaxis) Qty: 2 3RF Rx Instructions: for 2 doses prochlorperazine maleate 10 mg tablet 10 mg PO Q6H PRN (Reason: nausea and vomiting) Qty: 30 3RF dexamethasone 4 mg tablet 8 mg PO BID Qty: 30 1RF Rx Instructions: Take the day before and the day after each chemotherapy treatment morphine 15 mg tablet 15 mg PO Q4H PRN (Reason: pain) 30 Days Qty: 120 0RF tramadol 50 mg tablet 50 mg PO QID PRN (Reason: pain) Qty: 60 0RF metoclopramide HCl [Reglan] 5 mg tablet 5 mg PO .AC & HS PRN (Reason: nausea and vomiting) Qty: 120 0RF cephalexin 500 mg Tablet 500 mg PO BID Discharge Orders: Discharge ED (Routine); Ordered 02/04/23 Ordered By: Bill Chester Referrals: Ed Gibson MD [Primary Care Provider] - 1 week Patient Instructions: [place] Catheter Care Activity Restrictions/Additional Instructions: Please irrigate catheter up to 4 times a day as needed as needed. Please follow-up with family practice doctor and/or urologist in approximately the next 1 week for further evaluation and treatment. Please return to the ER if symptoms worsen. Coding Level of Care Code ED Reflector Driller And Deburrer for Sergio Stuart
[2023-02-04 20:32] VITALS: PULSE 80; RESP 18; O2SAT 96
== END 2023-02-04 20:33 | disposition home or self-care (01) ==
PROVIDERS: Emergency Provider Emergency Medicine; PCP Family Medicine
DX: T83.011A Breakdown (mechanical) of indwelling urethral catheter, initial encounter (principal); Y73.1 Therapeutic (nonsurgical) and rehabilitative gastroenterology and urology devices associated with adverse incidents; I10 Essential (primary) hypertension; Z85.46 Personal history of malignant neoplasm of prostate
CPT/HCPCS: 74176; 99284

== ENCOUNTER 2023-02-05 19:19 | Emergency (ER) | payer MEDICARE, MEDICAID, SELFPAY ==
[2023-02-05 19:29] VITALS: BP 153/94; PULSE 90; RESP 16; TEMP 36.6; O2SAT 99; BMI 19.2
--- NOTE | 2023-02-05 20:35 | ED_ITS ---
HPI - Male Genitourinary General: Chief complaint: Urogenital-Male Stated complaint: cath clogged Time Seen by Provider: 02/05/23 20:16 History of Present Illness: Patient seen again today for suprapubic catheter malfunction. Patient's had this catheter for 2 weeks roughly patient was seen yesterday for the same thing when he was irrigated patient was sent home with normal saline and told to irrigate it 4 times a day. Patient irrigated at once in the meantime and tried to irrigated once again and then was unsuccessful in doing it patient has not produced urine in about 2 hours and now his bladder is distended and hurts. Review of Systems General: Reports: 10 or more systems reviewed and unremarkable except in HPI and below PFSH ED PFSH: Medical History B12 deficiency Degenerative arthritis HTN (hypertension) Prostate cancer Urinary retention Vitamin D deficiency Surgical History S/P cataract surgery S/P hernia repair (2018) left inguinal hernia repair and history of bilateral inguinal hernia repair in childhood S/P TURP (07/27/16) cystoscopy with transurethral resection/vaporization of the prostate Family History Mother Hypertension Stroke Father Cancer Other Lung disease Denies family history of Diabetes CAD (coronary artery disease) Clotting disorder Dementia Hyperlipidemia Psychiatric illness Chronic kidney disease (CKD) Suicide Anesthesia complication Bleeding disorder Social History Smoking and tobacco status: never smoked Alcohol intake: never Marital status: Physical Exam Const: COMMON NORMALS: no acute distress, average body habitus, patient oriented x3, no limitations, healthy appearing, alert and well nourished Neck/C-Spine: COMMON NORMALS: no JVD Chest: COMMONS NORMALS: normal inspection of the chest and normal palpation of entire chest wall Resp: COMMON NORMALS: normal respiratory effort, No retractions, No use of accessory muscles and clear to auscultation bilaterally AUSCULTATION: clear to auscultation bilaterally Cardio: COMMON NORMALS: no JVD, regular rate, regular rhythm, S1 normal heart sound present, S2 normal heart sound present, No gallops present (Cardio), No clicks present (Cardio), No murmurs present (Cardio) and No rub (Cardio) RATE: regular rate RHYTHM: regular rhythm HEART SOUNDS: S1 normal heart sound present and S2 normal heart sound present GI: COMMON NORMALS: Normal to inspection, nondistended, normoactive bowel sounds present, No hepatosplenomegaly present and no masses PALPATION: Yes No hepatosplenomegaly present OTHER: Tender over bladder area, possible bladder distention. Suprapubic catheter in place Neuro: COMMON NORMALS: patient oriented x3 SENSORIUM/ORIENTATION: Yes alert Course Vital Signs: Vital signs: Vital Signs Temperature 97.8 F 02/05/23 19:29 Pulse Rate 86 02/05/23 21:04 Respiratory Rate 16 02/05/23 19:29 Blood Pressure 178/116 02/05/23 21:04 Pulse Oximetry 99 02/05/23 21:04 Oxygen Delivery Me thod Room Air 02/05/23 21:04 MDM - Male Medical Decision Making Patient presents with clogged suprapubic catheter for the second time in 2 days. Nursing irrigated the catheter vigorously and remove the clot and got plenty of urine out and it was free flowing into the bag. Patient felt immediately better. Patient be discharged home and instructed to irrigated himself at least 4 times a day to keep the sediment out of the end. Differential Diagnosis Likely acute retention of urine; Unlikely urinary tract infection, priapism, urethritis, epididymitis, genital herpes simplex, prostatitis or inguinal hernia Medical Records I reviewed the patient's medical records. Lab Data I reviewed the patient's lab results. Discharge Plan Discharge Patient Disposition: Home Clinical Impression: Malfunction of indwelling urinary catheter Condition: Stable Prescriptions: No Action lorazepam 0.5 mg tablet 0.5 mg PO TID PRN (Reason: anxiety) Qty: 30 1RF EpiPen 2-Fadi 0.3 mg/0.3 mL auto-injector 0.3 mg IM Q10M PRN (Reason: anaphylaxis) Qty: 2 3RF Rx Instructions: for 2 doses prochlorperazine maleate 10 mg tablet 10 mg PO Q6H PRN (Reason: nausea and vomiting) Qty: 30 3RF dexamethasone 4 mg tablet 8 mg PO BID Qty: 30 1RF Rx Instructions: Take the day before and the day after each chemotherapy treatment morphine 15 mg tablet 15 mg PO Q4H PRN (Reason: pain) 30 Days Qty: 120 0RF tramadol 50 mg tablet 50 mg PO QID PRN (Reason: pain) Qty: 60 0RF metoclopramide HCl [Reglan] 5 mg tablet 5 mg PO .AC & HS PRN (Reason: nausea and vomiting) Qty: 120 0RF cephalexin 500 mg Tablet 500 mg PO BID sodium chloride 0.9 % solution 1 irrig irrigation QID PRN (Reason: wound care) Qty: 1000 0RF Discharge Orders: Discharge ED (Routine); Ordered 02/05/23 Ordered By: Bill Chester Referrals: Ed Gibson MD [Primary Care Provider] - 1 week Patient Instructions: How to Care for Your Suprapubic Catheter (DC) Activity Restrictions/Additional Instructions: Please irrigate your suprapubic catheter at least 4 times a day to prevent sediment clogging. Coding Level of Care Code ED Internal Combustion Engine Subassembler for Sergio Stuart
[2023-02-05 21:04] VITALS: BP 178/116; PULSE 86; O2SAT 99
[2023-02-05 21:40] VITALS: PULSE 82; O2SAT 99
== END 2023-02-05 21:40 | disposition home or self-care (01) ==
PROVIDERS: Emergency Provider Emergency Medicine; PCP Family Medicine
DX: T83.018A Breakdown (mechanical) of other urinary catheter, initial encounter (principal); Y65.8 Other specified misadventures during surgical and medical care; Y92.9 Unspecified place or not applicable
CPT/HCPCS: 99282

== ENCOUNTER 2023-02-06 06:34 | Emergency (ER) | payer MEDICARE, MEDICAID, SELFPAY ==
[2023-02-06 06:42] VITALS: BP 177/106; PULSE 81; RESP 16; O2SAT 100; BMI 19.2
--- NOTE | 2023-02-06 06:49 | ED_ITS ---
HPI - Male Genitourinary General: Chief complaint: Urogenital-Male Stated complaint: feeding tube is clogged Time Seen by Provider: 02/06/23 06:40 Source: patient Mode of arrival: ambulatory Limitations: no limitations History of Present Illness: 67-year-old male and had a suprapubic catheter placed roughly 3 weeks ago has been seen here 3 days in a row now that he feels like he is having issues with the catheter he states that he feels like it may be clogged he is got urine in the bag currently. He has had no pain denies any fevers. Associated symptoms: Deny nausea or vomiting Review of Systems Const: Denies: fever(s) or chills Eyes: Denies: eye discomfort ENMT: Denies: throat pain Card: Denies: chest pain Resp: Denies: dyspnea GI: Reports: abdominal pain; Denies: nausea, vomiting or diarrhea : Reports: difficulty urinating Musc: Denies: neck pain or back pain Skin/Breast: Denies: rash Neuro: Denies: headache(s) PFSH ED PFSH: Medical History B12 deficiency Degenerative arthritis HTN (hypertension) Prostate cancer Urinary retention Vitamin D deficiency Surgical History S/P cataract surgery S/P hernia repair (2018) left inguinal hernia repair and history of bilateral inguinal hernia repair in childhood S/P TURP (07/27/16) cystoscopy with transurethral resection/vaporization of the prostate Family History Mother Hypertension Stroke Father Cancer Other Lung disease Denies family history of Diabetes CAD (coronary artery disease) Clotting disorder Dementia Hyperlipidemia Psychiatric illness Chronic kidney disease (CKD) Suicide Anesthesia complication Bleeding disorder Social History Smoking and tobacco status: never smoked Alcohol intake: never Marital status: Physical Exam Const: COMMON NORMALS: no acute distress, patient oriented x3 and healthy appearing HENMT: COMMON NORMALS: normocephalic and atraumatic HEAD & SCALP: normocephalic and atraumatic Neck/C-Spine: COMMON NORMALS: full ROM and supple Chest: COMMONS NORMALS: normal inspection of the chest Resp: COMMON NORMALS: normal respiratory effort Cardio: COMMON NORMALS: regular rate, regular rhythm and No murmurs present (Cardio) RATE: regular rate RHYTHM: regular rhythm GI: COMMON NORMALS: Normal to inspection, nondistended, normoactive bowel sounds present, Soft to palpation, non-tender and no masses PALPATION: Yes Soft to palpation OTHER: Suprapubic catheter in place Extremity: COMMON NORMALS: normal to inspection and full ROM Neuro: COMMON NORMALS: patient oriented x3, moves all extremities and no focal motor deficits Psych: COMMON NORMALS: mental status grossly normal, Normal thought process present and cooperative THOUGHT PROCESS: Normal thought process present Skin: COMMON NORMALS: no rashes or lesions noted and no wounds GENERAL SKIN EXAM: no rashes or lesions noted Course Vital Signs: Vital signs: Vital Signs Pulse Rate 81 02/06/23 06:42 Respiratory Rate 16 02/06/23 06:42 Blood Pressure 177/106 02/06/23 06:42 Pulse Oximetry 100 02/06/23 06:42 MDM - Male Medical Decision Making Patient presents here with malfunction of suprapubic catheter did flush that he feels improved we will start him on Bactrim he is to follow-up with his urologist return if worsening. Medical Records I reviewed the patient's medical records. Lab Data I reviewed the patient's lab results. Laboratory Results Urine Color Red (Yellow) 02/06/23 07:15 Urine Appearance Bloody (CLEAR) A 02/06/23 07:15 Urine pH 9 (5-7) H 02/06/23 07:15 Ur Specific [place] 1.015 (1.005-1.030) 02/06/23 07:15 Urine Protein 3+ (Negative) H 02/06/23 07:15 Urine Glucose (UA) Norm (Normal) 02/06/23 07:15 Urine Ketones Negative (Negative) 02/06/23 07:15 Urine Blood 3+ (Negative) H 02/06/23 07:15 Urine Nitrate Negative (Negative) 02/06/23 07:15 Urine Bilirubin Neg (Negative) 02/06/23 07:15 Urine Urobilinogen Norm mg/dL (Negative) 02/06/23 07:15 Ur Leukocyte Esterase 2+ (Negative) H 02/06/23 07:15 Urine RBC Too numerous to cnt /hpf (0-2) H 02/06/23 07:15 Urine WBC 5-10 /hpf (0-5) H 02/06/23 07:15 Ur Squamous Epith Cells None /hpf (0-5) 02/06/23 07:15 Amorphous Sediment Not Reportable 02/06/23 07:15 Urine Bacteria 1+ /hpf (NONE) H 02/06/23 07:15 Discharge Plan Discharge Patient Disposition: Home Clinical Impression: Suprapubic catheter dysfunction Condition: Stable Prescriptions: New Bactrim DS 800-160 mg tablet 1 tab PO BID 10 Days Qty: 20 0RF No Action lorazepam 0.5 mg tablet 0.5 mg PO TID PRN (Reason: anxiety) Qty: 30 1RF EpiPen 2-Fadi 0.3 mg/0.3 mL auto-injector 0.3 mg IM Q10M PRN (Reason: anaphylaxis) Qty: 2 3RF Rx Instructions: for 2 doses prochlorperazine maleate 10 mg tablet 10 mg PO Q6H PRN (Reason: nausea and vomiting) Qty: 30 3RF dexamethasone 4 mg tablet 8 mg PO BID Qty: 30 1RF Rx Instructions: Take the day before and the day after each chemotherapy treatment morphine 15 mg tablet 15 mg PO Q4H PRN (Reason: pain) 30 Days Qty: 120 0RF tramadol 50 mg tablet 50 mg PO QID PRN (Reason: pain) Qty: 60 0RF metoclopramide HCl [Reglan] 5 mg tablet 5 mg PO .AC & HS PRN (Reason: nausea and vomiting) Qty: 120 0RF cephalexin 500 mg Tablet 500 mg PO BID sodium chloride 0.9 % solution 1 irrig irrigation QID PRN (Reason: wound care) Qty: 1000 0RF Discharge Orders: Discharge ED (Routine); Ordered 02/06/23 Ordered By: Leia Wells Referrals: Ed Gibson MD [Primary Care Provider] - Discharge Diet: Advance as tolerated Discharge Activity: Resume usual activity Patient Instructions: How to Care for Your Suprapubic Catheter (DC) Coding Level of Care Code ED Utility Mechanic for Chg Narciso
[2023-02-06 07:31] LABS: Add Urine Microscopic? YES; Bilirubin Urine Neg (Negative); Blood Urine 3+ (Negative); Glucose Urine UA Norm (Normal); Ketones Urine Negative (Negative); Leukocyte Esterase Urine 2+ (Negative); Nitrate Urine Negative (Negative); Protein Urine 3+ (Negative); RBC Urine TOO NUMEROUS TO CNT /hpf (0-2); Specific Gravity, Urine 1.015 (1.005-1.030); Urine Appearance Bloody (CLEAR); Urine Color Red (Yellow); Urobilinogen Urine Norm (Negative); pH Urine 9 (5-7)
[2023-02-06 07:32] LABS: Add Urine Culture? Yes; Bacteria Urine 1+ /hpf
[2023-02-06 14:42] LABS: Sulfosalicylic Acid Urine Positive (Negative)
== END 2023-02-06 07:50 | disposition home or self-care (01) ==
PROVIDERS: Emergency Provider Emergency Medicine; PCP Family Medicine
DX: T83.098A Other mechanical complication of other urinary catheter, initial encounter (principal); I10 Essential (primary) hypertension; Z85.46 Personal history of malignant neoplasm of prostate; Y73.1 Therapeutic (nonsurgical) and rehabilitative gastroenterology and urology devices associated with adverse incidents; R10.9 Unspecified abdominal pain
CPT/HCPCS: 81001; 87086; 99283

== ENCOUNTER 2023-02-07 15:51 | Oncology outpatient (recurring) (ONCR) | payer MEDICARE, MEDICAID, SELFPAY ==
[2023-02-07 16:10] VITALS: BP 140/89; PULSE 78; RESP 18; TEMP 36.6; O2SAT 100
[2023-02-07] MEDS: cyanocobalamin 1,000 mcg/mL SDV 1000 MCG IM (16:10)
== END 2023-03-07 23:59 | disposition home or self-care (01) ==
PROVIDERS: PCP Family Medicine; Visit Provider Internal Medicine Medical Oncology
DX: E53.8 Deficiency of other specified B group vitamins (principal)
CPT/HCPCS: 96372; J3420

== ENCOUNTER 2023-02-21 00:37 | Emergency (ER) | payer MEDICARE, MEDICAID, SELFPAY ==
[2023-02-21 00:45] VITALS: BP 129/78; PULSE 106; RESP 16; TEMP 36.7; O2SAT 98; BMI 18.3
--- NOTE | 2023-02-21 00:58 | W.ED.MALEGU ---
HPI - Male Genitourinary General: Chief complaint: Urogenital-Male Stated complaint: unable to urinate Time Seen by Provider: 02/21/23 00:57 History of Present Illness: 67-year-old male patient comes in today with need for irrigation of Hamilton. Patient had tried to irrigate the Hamilton but was unable to withdraw the fluid after irrigating it. Patient denies any pain or discomfort. Patient appears nontoxic. Review of Systems Const: Denies: fever(s) : Reports: other (Difficulty irrigating catheter) PFSH ED PFSH: Medical History B12 deficiency Degenerative arthritis HTN (hypertension) Prostate cancer Urinary retention Vitamin D deficiency Surgical History S/P cataract surgery S/P hernia repair (2018) left inguinal hernia repair and history of bilateral inguinal hernia repair in childhood S/P TURP (07/27/16) cystoscopy with transurethral resection/vaporization of the prostate Family History Mother Hypertension Stroke Father Cancer Other Lung disease Denies family history of Diabetes CAD (coronary artery disease) Clotting disorder Dementia Hyperlipidemia Psychiatric illness Chronic kidney disease (CKD) Suicide Anesthesia complication Bleeding disorder Social History Smoking and tobacco status: never smoked Alcohol intake: never Marital status: Physical Exam Const: COMMON NORMALS: alert Resp: COMMON NORMALS: normal respiratory effort Cardio: COMMON NORMALS: regular rate RATE: regular rate GI: COMMON NORMALS: Soft to palpation PALPATION: Yes Soft to palpation : OTHER: Suprapubic catheter intact, draining clear fluid Neuro: SENSORIUM/ORIENTATION: Yes alert Skin: COMMON NORMALS: turgor normal GENERAL SKIN EXAM: turgor normal Course Vital Signs: Vital signs: Vital Signs Temperature 98.1 F 02/21/23 02:41 Pulse Rate 88 02/21/23 02:41 Respiratory Rate 18 02/21/23 02:41 Blood Pressure 134/77 02/21/23 02:41 Pulse Oximetry 96 02/21/23 02:41 Oxygen Delivery Me thod Room Air 02/21/23 00:45 MDM - Male Medical Decision Making 67-year-old male patient comes in today for complaints of difficulty of irrigating Hamilton catheter. On exam patient appears nontoxic. Nursing was able to irrigate the catheter. Patient continued to feel as pressure was in his bladder. Bladder scan noted no fluid in the bladder. Recommended follow-up with urology for further evaluation and treatment. Differential diagnoses includes not limited to bladder outlet obstruction, anxiety, UTI. Discharge Plan Discharge Patient Disposition: Home Clinical Impression: Hamilton catheter problem Qualifiers: Encounter type: subsequent encounter Qualified Code(s): T83.9XXD - Unspecified complication of genitourinary prosthetic device, implant and graft, subsequent encounter Condition: Stable Prescriptions: No Action lorazepam 0.5 mg tablet 0.5 mg PO TID PRN (Reason: anxiety) Qty: 30 1RF EpiPen 2-Fadi 0.3 mg/0.3 mL auto-injector 0.3 mg IM Q10M PRN (Reason: anaphylaxis) Qty: 2 3RF Rx Instructions: for 2 doses prochlorperazine maleate 10 mg tablet 10 mg PO Q6H PRN (Reason: nausea and vomiting) Qty: 30 3RF dexamethasone 4 mg tablet 8 mg PO BID Qty: 30 1RF Rx Instructions: Take the day before and the day after each chemotherapy treatment morphine 15 mg tablet 15 mg PO Q4H PRN (Reason: pain) 30 Days Qty: 120 0RF tramadol 50 mg tablet 50 mg PO QID PRN (Reason: pain) Qty: 60 0RF metoclopramide HCl [Reglan] 5 mg tablet 5 mg PO .AC & HS PRN (Reason: nausea and vomiting) Qty: 120 0RF cephalexin 500 mg Tablet 500 mg PO BID sodium chloride 0.9 % solution 1 irrig irrigation QID PRN (Reason: wound care) Qty: 1000 0RF Discharge Orders: Discharge ED (Routine); Ordered 02/21/23 Ordered By: Rafi Blanton Referrals: Ed Gibson MD [Primary Care Provider] - Patient Instructions: Hamilton Catheter Care Activity Restrictions/Additional Instructions: Follow-up with your urologist office in the morning. Continue with routine medications as directed. Return to ER for high fever, severe pain, or new concerns. Coding Level of Care Code ED [employer] for [employer]
[2023-02-21 02:41] VITALS: BP 134/77; PULSE 88; RESP 18; TEMP 36.7; O2SAT 96
== END 2023-02-21 02:46 | disposition home or self-care (01) ==
PROVIDERS: Emergency Provider Nurse Practitioner Family; PCP Family Medicine
DX: T83.9XXA Unspecified complication of genitourinary prosthetic device, implant and graft, initial encounter (principal); I10 Essential (primary) hypertension; Z85.46 Personal history of malignant neoplasm of prostate; Y73.8 Miscellaneous gastroenterology and urology devices associated with adverse incidents, not elsewhere classified
CPT/HCPCS: 99282

== ENCOUNTER 2023-04-05 15:00 | Oncology outpatient (recurring) (ONCR) | payer MEDICARE, MEDICAID, SELFPAY ==
[2023-03-08 09:25] VITALS: BP 121/66; PULSE 96; RESP 18; O2SAT 97
[2023-03-08 09:54] LABS: Basophils % 0.3 %; Eosinophils % 0.1 %; Hematocrit 30.3 % (42.0-52.0); Hemoglobin 9.8 g/dL (11.7-16.6); Lymphocytes # 0.7 10^3/uL (0.8-4.8); Lymphocytes % 6.7 %; Mean Corpuscular HGB Conc 32.3 g/dL (30.0-36.0); Mean Corpuscular Hemoglobin 27.9 pg (28.0-34.0); Mean Corpuscular Volume 86.3 fl (80-94); Mean Platelet Volume 9.1 fL (7.4-10.4); Monocytes # 1.1 10^3/uL (0.2-0.9); Monocytes % 10.3 %; Neutrophils # 8.53 10^3/uL (1.8-7.7); Neutrophils % 81.9 %; Nucleated Red Blood Cells % 0 %; Platelet Count 262 10^3/cmm (130-400); Red Blood Count 3.51 10^6/uL (4.1-5.3); Red Cell Distribution Width 13.6 % (12.1-15.1); White Blood Count 10.4 10^3/uL (4.0-10.0)
[2023-03-08 10:34] LABS: Alanine Aminotransferase < 5 U/L (0-41); Albumin Level 3.6 g/dL (3.5-5.2); Alkaline Phosphatase 89 U/L (40-130); Anion Gap 16.6 (5-19); Aspartate Amino Transferase 8 U/L (0-40); Blood Urea Nitrogen 18 mg/dL (8-23); Calcium 8.8 mg/dL (8.5-10.5); Carbon Dioxide 24 mmol/L (22-29); Chloride 99 mmol/L (98-107); Glomerular Filtration Rate 40.7 mL/min (90-130); Glucose 152 mg/dL (65-115); Osmolality Calculated 287 mOsm/kg (285-295); Potassium 3.6 mmol/L (3.5-5.1); Sodium 136 mmol/L (136-145); Testosterone Total 4.3 ng/dL (193-740); Total Bilirubin 0.3 mg/dL (0.15-1.2); Total Protein 6.6 g/dL (6.6-8.7)
[2023-03-09] MEDS: leuprolide 22.5 mg Kit IM (12:18)
[2023-03-09] MEDS: cyanocobalamin 1,000 mcg/mL SDV 1000 MCG IM (12:22)
== END 2023-04-07 23:59 | disposition home or self-care (01) ==
PROVIDERS: PCP Family Medicine; Visit Provider Internal Medicine Medical Oncology
DX: C61 Malignant neoplasm of prostate
CPT/HCPCS: 36415; 80053; 84153; 84403; 85025; 96372; 96402; 99215; J3420; J9217

== ENCOUNTER 2023-05-27 11:57 | Outpatient (CLI) | payer MEDICARE, MEDICAID, SELFPAY ==
[2023-05-27 12:37] LABS: Basophils % 0.4 %; Eosinophils # 0.1 10^3/uL (0.0-0.8); Eosinophils % 1.8 %; Hematocrit 34.9 % (37-53); Lymphocytes # 0.8 10^3/uL (0.8-4.8); Lymphocytes % 14.9 %; Mean Corpuscular HGB Conc 32.7 g/dL (30-55); Mean Corpuscular Hemoglobin 27.9 pg (27-33); Mean Corpuscular Volume 85.3 fl (82-101); Mean Platelet Volume 10.1 fL (7.4-10.4); Monocytes # 0.5 10^3/uL (0.2-0.9); Monocytes % 8.2 %; Neutrophils % 74.3 %; Nucleated Red Blood Cells % 0 %; Platelet Count 192 10^3/cmm (157-399); Red Blood Count 4.09 10^6/uL (3.85-5.65); Red Cell Distribution Width 13.8 % (12.1-15.1); White Blood Count 5.64 10^3/uL (3.29-11.43)
[2023-05-27 13:05] LABS: Alanine Aminotransferase < 5 U/L (0-41); Albumin Level 3.8 g/dL (3.5-5.2); Alkaline Phosphatase 103 U/L (40-130); Anion Gap 16.1 (5-19); Aspartate Amino Transferase 9 U/L (0-40); Blood Urea Nitrogen 19 mg/dL (8-23); Calcium 9.2 mg/dL (8.5-10.5); Carbon Dioxide 27 mmol/L (22-29); Chloride 99 mmol/L (98-107); Globulin 3.7 g/dL (1.3-4.6); Glucose 108 mg/dL (65-115); Osmolality Calculated 291 mOsm/kg (285-295); Potassium 3.1 mmol/L (3.5-5.1); Sodium 139 mmol/L (136-145); Total Bilirubin 0.4 mg/dL (0.15-1.2); Total Protein 7.5 g/dL (6.6-8.7)
[2023-05-27 13:13] LABS: Urine Appearance Cloudy (CLEAR); Urine Color Amber (Yellow); pH Urine 6.5 (5-7)
[2023-05-27 13:14] LABS: Add Urine Culture? No; Add Urine Microscopic? YES; Bacteria Urine 3+ /hpf; Bilirubin Urine 1+ (Negative); Blood Urine 3+ (Negative); Glucose Urine UA Norm (Normal); Ketones Urine 1+ (Negative); Leukocyte Esterase Urine 2+ (Negative); Nitrate Urine Positive (Negative); Protein Urine 3+ (Negative); RBC Urine TOO NUMEROUS TO CNT /hpf (0-2); Squamous Epithelial Cell Urine 0-4 /hpf (0-5); Urobilinogen Urine 1 mg/dL (Negative); WBC Urine 0-4 /hpf (0-5)
== END 2023-05-27 11:58 | disposition home or self-care (01) ==
PROVIDERS: PCP Family Medicine; Visit Provider Internal Medicine Medical Oncology
DX: C61 Malignant neoplasm of prostate (principal); Z79.899 Other long term (current) drug therapy
CPT/HCPCS: 36415; 80053; 81001; 85025; 87040; 87077; 87086; 87186

== ENCOUNTER 2023-05-31 18:04 | Emergency (ER) | payer MEDICARE, MEDICAID, SELFPAY ==
--- NOTE | 2023-05-31 18:21 | ED_ITS ---
HPI - Allergic Reaction General: Chief complaint: Allergic Reaction Stated complaint: Allergic to Bee Stings Time Seen by Provider: 05/31/23 18:16 History of Present Illness: HPI narrative: Patient presents to the ER with complaints of being stung by bee on the left side of his mandible jaw area. 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 Patient appears in no acute distress resting comfortably in bed during exam patient has had no treatment prior to arrival. Patient has been stung with bees and had allergic reactions in the past.. Review of Systems General: Reports: 10 or more systems reviewed and unremarkable except in HPI and below PFSH ED PFSH: Medical History B12 deficiency Degenerative arthritis HTN (hypertension) Prostate cancer Urinary retention Vitamin D deficiency Surgical History History of nephrostomy Tubes placed S/P cataract surgery S/P hernia repair (2018) left inguinal hernia repair and history of bilateral inguinal hernia repair in childhood S/P TURP (07/27/16) cystoscopy with transurethral resection/vaporization of the prostate Family History Mother Hypertension Stroke Father Cancer Other Lung disease Denies family history of Diabetes CAD (coronary artery disease) Clotting disorder Dementia Hyperlipidemia Psychiatric illness Chronic kidney disease (CKD) Suicide Anesthesia complication Bleeding disorder Social History Smoking and tobacco/nicotine status: never used tobacco/nicotine Alcohol intake: never Marital status: Physical Exam Const: COMMON NORMALS: no acute distress, average body habitus, patient oriented x3, no limitations, healthy appearing, alert and well nourished HENMT: COMMON NORMALS: normocephalic, atraumatic, hearing grossly normal bilaterally, external ears normal, Normal external nose present, moist oral mucous membranes and oropharynx normal HEAD & SCALP: normocephalic and atraumatic NOSE: Normal external nose present EXTERNAL EAR: Yes external ears normal Eye: COMMON NORMALS: Equal, round and reactive pupils present, EOMs intact bilaterally, conjunctivae normal and no scleral icterus CONJUNCTIVA: Yes conjunctivae normal PUPIL: Yes Equal, round and reactive pupils present Neck/C-Spine: COMMON NORMALS: no JVD OTHER: Raised red area on his left mandibular neck junction consistent with bee sting and reaction. Chest: COMMONS NORMALS: normal inspection of the chest and normal palpation of entire chest wall Resp: COMMON NORMALS: normal respiratory effort, No retractions, No use of accessory muscles and clear to auscultation bilaterally AUSCULTATION: clear to auscultation bilaterally Cardio: COMMON NORMALS: no JVD, regular rate, regular rhythm, S1 normal heart sound present, S2 normal heart sound present, No gallops present (Cardio), No clicks present (Cardio) and No rub (Cardio) RATE: regular rate RHYTHM: reg ular rhythm HEART SOUNDS: S1 normal heart sound present and S2 normal heart sound present GI: COMMON NORMALS: Normal to inspection, nondistended, normoactive bowel sounds present, Soft to palpation, non-tender, No hepatosplenomegaly present and no masses PALPATION: Yes Soft to palpation and Yes No hepatosplenomegaly present Neuro: COMMON NORMALS: patient oriented x3 SENSORIUM/ORIENTATION: Yes alert Course Vital Signs: Vital signs: Vital Signs Pulse Rate 82 05/31/23 19:24 Blood Pressure 164/101 05/31/23 19:24 Pulse Oximetry 100 05/31/23 19:24 Oxygen Delivery Me thod Room Air 05/31/23 19:24 MDM - Allergic Reaction Medical Decision Making Patient was stung by bee on his left mandible region. Patient come to the ER because he and started having swallowing and airway changes. Patient was given 125 mg Solu-Medrol, 20 mg Pepcid, 50 mg Benadryl IV V, rechecked and patient is doing much better and is ready to go home. Patient be discharged home Differential Diagnosis Likely allergic reaction; Unlikely anaphylaxis, angioedema, contact dermatitis, adverse reaction to drug, viral enanthem or urticaria Medical Records I reviewed the patient's medical records. Lab Data I reviewed the patient's lab results. No radiology studies performed this visit Discharge Plan Discharge Patient Disposition: Home Clinical Impression: Allergic reaction to bee sting Condition: Stable Prescriptions: No Action fentanyl 50 mcg/hr patch 72 hour 1 patch transdermal Q72H amlodipine 5 mg tablet 5 mg PO DAILY dronabinol 2.5 mg capsule 2.5 mg PO DAILY Rx Instructions: administer before lunch and evening meal/dinner ondansetron 8 mg tablet,disintegrating 8 mg PO Q8H PRN (Reason: nausea and vomiting) Qty: 30 3RF tramadol 50 mg tablet 50 mg PO QID PRN (Reason: pain) Qty: 60 0RF ciprofloxacin HCl 500 mg tablet 500 mg PO BID 5 Days Qty: 10 0RF Rx Instructions: Start taking on 06/02/23 metoclopramide HCl [Reglan] 5 mg tablet 5 mg PO .AC & HS PRN (Reason: nausea and vomiting) Qty: 120 0RF prochlorperazine maleate 10 mg tablet 10 mg PO Q6H PRN (Reason: nausea and vomiting) Qty: 30 3RF bisacodyl 10 mg suppository 10 mg AL DAILY PRN (Reason: constipation) Qty: 5 0RF Rx Instructions: 1 suppository per rectum every day PRN for constipation. atropine 1 % drops 4 drp sublingual Q4H PRN (Reason: secretions) Qty: 5 0RF Rx Instructions: 4 drops SL q 4 hours PRN for terminal congestion/excessive secretions. ondansetron 4 mg tablet,disintegrating 4 mg translingual Q4H PRN (Reason: nausea) Qty: 5 0RF Rx Instructions: Dissolve 1 tablet under tongue every 4 hours PRN for nausea lorazepam 2 mg/mL concentrate 2 mg sublingual Q4H PRN (Reason: Anxiety/Seizure) Qty: 30 0RF Rx Instructions: 0.25ml-1ml q4H PRN Anxiety/Seizure Start 0.25ml may increase to 0.5ml-1ml q4H (DME) suprapubic catheter leg bag See Rx Instructions .Route .MEDSUPPLY Qty: 1 0RF Rx Instructions: As directed sodium chloride 0.9 % solution 1 irrig irrigation QID PRN (Reason: wound care) Qty: 1000 0RF Discharge Orders: Discharge ED (Routine); Ordered 05/31/23 Ordered By: Bill Chester Referrals: Ed Gibson MD [Primary Care Provider] - 7-10 days Patient Instructions: Insect Bite or Sting (ED) Activity Restrictions/Additional Instructions: Please follow-up with your family practice doctor within the next 7 to 10 days as needed. Please return to the ER if symptoms return or worsen. Coding Level of Care Code ED [employer] for [employer]
[2023-05-31] MEDS: diphenhydrAMINE 50 mg/mL SDV 1mL IVP (18:26)
[2023-05-31] MEDS: famotidine 20 mg/2 mL INJ IVP (18:28)
[2023-05-31] MEDS: methylPREDNISolone sod succ 125 MG in water for injection-sterile 2 ML 24 MG IVP (18:30)
[2023-05-31 19:05] VITALS: BP 167/104; PULSE 85; O2SAT 100
[2023-05-31 19:24] VITALS: BP 164/101; PULSE 82; O2SAT 100
== END 2023-05-31 19:47 | disposition home or self-care (01) ==
PROVIDERS: Emergency Provider Emergency Medicine; PCP Family Medicine
DX: T63.441A Toxic effect of venom of bees, accidental (unintentional), initial encounter (principal); I10 Essential (primary) hypertension; Z85.46 Personal history of malignant neoplasm of prostate; X58.XXXA Exposure to other specified factors, initial encounter
CPT/HCPCS: 96374; 96375; 99284; J1200; J2930; J3490

== ENCOUNTER 2023-06-07 14:30 | Oncology outpatient (recurring) (ONCR) | payer MEDICARE, MEDICAID, SELFPAY ==
[2023-05-31] MEDS: sodium chloride 0.9% 1,000 ML 75 ML IV (12:12)
[2023-05-31] MEDS: ondansetron 2 mg/ML SDV 2 mL 8 MG IVP (12:16)
[2023-05-31] MEDS: levofloxacin-dextrose 5 % 500 MG/100 ML PREMIX 100 MG IV (12:54)
[2023-05-31 15:24] VITALS: BP 175/90; PULSE 79; RESP 17; TEMP 36; O2SAT 99
[2023-06-01] MEDS: sodium chloride 0.9% 1,000 ML 999 ML IV (12:36)
[2023-06-01] MEDS: levofloxacin-dextrose 5 % 500 MG/100 ML PREMIX 100 MG IV (12:36)
[2023-06-01 15:05] VITALS: BP 194/104; PULSE 76; RESP 16; TEMP 35.8; O2SAT 99
[2023-06-07] MEDS: sodium chloride 0.9% 1,000 ML 999 ML IV (14:49)
[2023-06-07 15:26] VITALS: BP 145/101; PULSE 81; RESP 17; TEMP 37.2; O2SAT 96
[2023-06-07] MEDS: ondansetron 2 mg/ML SDV 2 mL 8 MG IVP (15:37)
[2023-06-07] MEDS: levofloxacin-dextrose 5 % 500 MG/100 ML PREMIX 100 MG IV (15:55)
[2023-06-07 17:23] VITALS: BP 164/94; PULSE 78; RESP 17; TEMP 37.2; O2SAT 98
== END 2023-06-07 23:59 | disposition home or self-care (01) ==
PROVIDERS: PCP Family Medicine; Visit Provider Internal Medicine Medical Oncology
DX: E86.0 Dehydration (principal); C61 Malignant neoplasm of prostate; N39.0 Urinary tract infection, site not specified
CPT/HCPCS: 96361; 96365; 96366; 96367; 96368; 96375; 99214; J1100; J1956; J2405; J7030

== ENCOUNTER 2023-06-08 13:03 | Oncology outpatient (recurring) (ONCR) | payer MEDICARE, MEDICAID, SELFPAY ==
[2023-06-08] MEDS: sodium chloride 0.9% 1,000 ML 999 ML IV (13:45)
[2023-06-08] MEDS: ondansetron 2 mg/ML SDV 2 mL 8 MG IVP (13:46)
[2023-06-08] MEDS: levofloxacin-dextrose 5 % 500 MG/100 ML PREMIX 100 MG IV (13:56)
[2023-06-08 15:50] VITALS: BP 181/89; PULSE 65; O2SAT 100
[2023-06-08 16:04] LABS: Add Urine Microscopic? YES; Bilirubin Urine Neg (Negative); Blood Urine 3+ (Negative); Glucose Urine UA Norm (Normal); Ketones Urine Negative (Negative); Leukocyte Esterase Urine 2+ (Negative); Nitrate Urine Negative (Negative); Protein Urine 2+ (Negative); Specific Gravity, Urine 1.025 (1.005-1.030); Urine Appearance Cloudy (CLEAR); Urine Color Dark Yellow (Yellow); Urobilinogen Urine Norm (Negative); pH Urine 5 (5-7)
[2023-06-08 16:19] LABS: Add Urine Culture? Yes; Bacteria Urine 1+ /hpf; Fine Granular Casts Urine 0-4 /lpf; Mucus Urine 3+ /hpf; RBC Urine 50-80 /hpf (0-2); WBC Urine 40-55 /hpf (0-5)
== END 2023-07-07 23:59 | disposition home or self-care (01) ==
PROVIDERS: PCP Family Medicine; Visit Provider Internal Medicine Medical Oncology
DX: C61 Malignant neoplasm of prostate; R39.89 Other symptoms and signs involving the genitourinary system
CPT/HCPCS: 81001; 87086; 96365; 96375; J1956; J2405; J7030

== ENCOUNTER 2023-07-14 16:52 | Outpatient (CLI) | payer MEDICARE, MEDICAID, SELFPAY ==
[2023-07-14 17:15] LABS: Blood Urine 3+ (Negative); Glucose Urine UA Norm (Normal); Ketones Urine Negative (Negative); Protein Urine 3+ (Negative); Specific Gravity, Urine 1.015 (1.005-1.030); Urine Appearance Cloudy (CLEAR); Urine Color Amber (Yellow); pH Urine 6 (5-7)
[2023-07-14 17:16] LABS: Bilirubin Urine Neg (Negative); Leukocyte Esterase Urine 2+ (Negative); Nitrate Urine Negative (Negative); Urobilinogen Urine Norm (Negative)
[2023-07-14 17:29] LABS: Bacteria Urine 1+ /hpf; Mucus Urine 2+ /hpf; RBC Urine 50-80 /hpf (0-2); Squamous Epithelial Cell Urine 0-4 /hpf (0-5); Transitional Epi Cells Urine 0-4 /hpf; WBC Urine 55-80 /hpf (0-5)
[2023-07-14 17:30] LABS: Add Urine Culture? Yes
== END 2023-07-14 16:53 | disposition home or self-care (01) ==
LOC: LAB 16:53
PROVIDERS: PCP Family Medicine; Visit Provider Internal Medicine Medical Oncology
DX: C61 Malignant neoplasm of prostate (principal); R33.9 Retention of urine, unspecified
CPT/HCPCS: 81001

== ENCOUNTER 2023-07-27 15:00 | Oncology outpatient (recurring) (ONCR) | payer MEDICARE, MEDICAID, SELFPAY ==
[2023-07-11 15:30] LABS: Basophils % 0.4 %; Eosinophils # 0.1 10^3/uL (0.0-0.8); Eosinophils % 2.8 %; Hematocrit 31.6 % (37-53); Lymphocytes # 0.9 10^3/uL (0.8-4.8); Lymphocytes % 17.4 %; Mean Corpuscular HGB Conc 32.6 g/dL (30-55); Mean Platelet Volume 9.8 fL (7.4-10.4); Monocytes # 0.4 10^3/uL (0.2-0.9); Monocytes % 8.7 %; Neutrophils # 3.45 10^3/uL (1.8-7.7); Neutrophils % 70.1 %; Nucleated Red Blood Cells % 0 %; Platelet Count 180 10^3/cmm (157-399); Red Blood Count 3.55 10^6/uL (3.85-5.65); Red Cell Distribution Width 14.9 % (12.1-15.1); White Blood Count 4.93 10^3/uL (3.29-11.43)
[2023-07-11 15:51] LABS: Add Urine Microscopic? YES; Amorphous Sediment Urine 4+ /hpf; Bacteria Urine 2+ /hpf; Bilirubin Urine Neg (Negative); Blood Urine 2+ (Negative); Glucose Urine UA Norm (Normal); Ketones Urine Negative (Negative); Leukocyte Esterase Urine 2+ (Negative); Nitrate Urine Negative (Negative); Protein Urine 1+ (Negative); Specific Gravity, Urine 1.005 (1.005-1.030); Urine Appearance Hazy (CLEAR); Urine Color Yellow (Yellow); Urobilinogen Urine Norm (Negative); WBC Urine >100 /hpf (0-5); pH Urine 6.5 (5-7)
[2023-07-11 16:07] LABS: Alanine Aminotransferase < 5 U/L (0-41); Albumin Level 3.9 g/dL (3.5-5.2); Alkaline Phosphatase 86 U/L (40-130); Anion Gap 11.9 (5-19); Aspartate Amino Transferase 11 U/L (0-40); Blood Urea Nitrogen 21 mg/dL (8-23); Calcium 8.8 mg/dL (8.5-10.5); Carbon Dioxide 28 mmol/L (22-29); Chloride 105 mmol/L (98-107); Globulin 2.7 g/dL (1.3-4.6); Glomerular Filtration Rate 50.7 mL/min (90-130); Glucose 102 mg/dL (65-115); Osmolality Calculated 295 mOsm/kg (285-295); Potassium 3.9 mmol/L (3.5-5.1); Sodium 141 mmol/L (136-145); Testosterone Total 2.5 ng/dL (193-740); Total Bilirubin 0.2 mg/dL (0.15-1.2); Total Protein 6.6 g/dL (6.6-8.7)
[2023-07-14 17:37] LABS: Add Urine Culture? Yes
[2023-07-27 15:12] VITALS: BP 176/114; PULSE 85; RESP 18; TEMP 36.2; O2SAT 98
[2023-07-27] MEDS: denosumab 120 mg SDV SUBCUT (15:20)
== END 2023-08-07 23:59 | disposition home or self-care (01) ==
PROVIDERS: PCP Family Medicine; Visit Provider Internal Medicine Medical Oncology
DX: Z51.11 Encounter for antineoplastic chemotherapy; C79.51 Secondary malignant neoplasm of bone; C61 Malignant neoplasm of prostate; Z53.9 Procedure and treatment not carried out, unspecified reason
CPT/HCPCS: 36415; 80053; 81001; 84153; 84403; 85025; 87086; 87106; 96401; 99214; J0897

== ENCOUNTER 2023-10-06 14:30 | Oncology outpatient (recurring) (ONCR) | payer MEDICARE, MEDICAID, SELFPAY ==
[2023-09-08 08:29] LABS: Basophils % 0.6 %; Eosinophils # 0.2 10^3/uL (0.0-0.8); Eosinophils % 3.1 %; Hematocrit 34.6 % (37-53); Mean Corpuscular HGB Conc 32.7 g/dL (30-55); Mean Corpuscular Hemoglobin 30.2 pg (27-33); Mean Corpuscular Volume 92.5 fl (82-101); Mean Platelet Volume 9.5 fL (7.4-10.4); Monocytes # 0.4 10^3/uL (0.2-0.9); Monocytes % 7.1 %; Neutrophils # 3.65 10^3/uL (1.8-7.7); Neutrophils % 70.2 %; Nucleated Red Blood Cells % 0 %; Platelet Count 150 10^3/cmm (157-399); Red Blood Count 3.74 10^6/uL (3.85-5.65); Red Cell Distribution Width 14.5 % (12.1-15.1)
[2023-09-08 08:55] LABS: Alanine Aminotransferase 7 U/L (0-41); Albumin Level 4.1 g/dL (3.5-5.2); Alkaline Phosphatase 69 U/L (40-130); Anion Gap 13.5 (5-19); Aspartate Amino Transferase 13 U/L (0-40); Blood Urea Nitrogen 22 mg/dL (8-23); Calcium 9.2 mg/dL (8.5-10.5); Carbon Dioxide 24 mmol/L (22-29); Chloride 107 mmol/L (98-107); Globulin 2.9 g/dL (1.3-4.6); Glucose 91 mg/dL (65-115); Osmolality Calculated 295 mOsm/kg (285-295); Potassium 3.5 mmol/L (3.5-5.1); Sodium 141 mmol/L (136-145); Testosterone Total 244.6 ng/dL (193-740); Total Bilirubin 0.2 mg/dL (0.15-1.2)
[2023-09-08 09:14] LABS: Lactate Dehydrogenase 158 U/L (135-225)
[2023-09-08] MEDS: denosumab 120 mg SDV SUBCUT (10:28)
[2023-09-08] MEDS: leuprolide 22.5 mg Kit IM (10:29)
== END 2023-10-06 23:59 | disposition home or self-care (01) ==
PROVIDERS: Internal Medicine; PCP Family Medicine; Visit Provider Internal Medicine Medical Oncology
DX: Z53.9 Procedure and treatment not carried out, unspecified reason
CPT/HCPCS: 36415; 80053; 83615; 84153; 84403; 85025; 96372; 96402; 99214; J0897; J9217

== ENCOUNTER 2023-11-02 12:54 | Outpatient (CLI) | payer MEDICARE, MEDICAID, SELFPAY ==
[2023-11-02 14:31] LABS: Add Urine Microscopic? YES; Bilirubin Urine Neg (Negative); Blood Urine 2+ (Negative); Glucose Urine UA Norm (Normal); Ketones Urine Negative (Negative); Leukocyte Esterase Urine 2+ (Negative); Nitrate Urine Positive (Negative); Protein Urine 1+ (Negative); Specific Gravity, Urine 1.015 (1.005-1.030); Urine Appearance Hazy (CLEAR); Urine Color Yellow (Yellow); Urobilinogen Urine Norm (Negative); pH Urine 5 (5-7)
[2023-11-02 14:43] LABS: Add Urine Culture? Yes; Bacteria Urine 2+ /hpf; Mucus Urine 1+ /hpf; Squamous Epithelial Cell Urine 0-4 /hpf (0-5); WBC Urine >100 /hpf (0-5)
== END 2023-11-02 12:55 | disposition home or self-care (01) ==
PROVIDERS: PCP Family Medicine; Visit Provider Family Medicine
DX: N13.30 Unspecified hydronephrosis (principal); Z79.899 Other long term (current) drug therapy
CPT/HCPCS: 81001; 87077; 87086; 87186

== ENCOUNTER 2024-01-16 18:25 | Outpatient (CLI) | payer MEDICARE, MEDICAID, SELFPAY ==
[2024-01-16 19:24] LABS: Add Urine Culture? Yes; Bacteria Urine 2+ /hpf; Bilirubin Urine Neg (Negative); Blood Urine 3+ (Negative); Glucose Urine UA Norm (Normal); Ketones Urine Negative (Negative); Leukocyte Esterase Urine 2+ (Negative); Nitrate Urine Negative (Negative); Protein Urine 1+ (Negative); Specific Gravity, Urine 1.005 (1.005-1.030); Urine Appearance Slightly Cloudy (CLEAR); Urine Color Yellow (Yellow); Urobilinogen Urine Norm (Negative); WBC Urine 15-25 /hpf (0-5); pH Urine 6 (5-7)
== END 2024-01-16 18:26 | disposition home or self-care (01) ==
LOC: LAB 18:26
PROVIDERS: PCP Family Medicine; Visit Provider Family Medicine
DX: Z46.6 Encounter for fitting and adjustment of urinary device (principal)
CPT/HCPCS: 81001; 87086

== ENCOUNTER 2024-02-06 17:09 | Outpatient (CLI) | payer MEDICARE, MEDICAID, SELFPAY ==
[2024-02-06 20:22] LABS: Bilirubin Urine Neg (Negative); Blood Urine 3+ (Negative); Glucose Urine UA Norm (Normal); Ketones Urine Negative (Negative); Leukocyte Esterase Urine 2+ (Negative); Nitrate Urine Negative (Negative); Protein Urine 2+ (Negative); Specific Gravity, Urine 1.005 (1.005-1.030); Urine Appearance Slightly Cloudy (CLEAR); Urine Color Yellow (Yellow); Urobilinogen Urine Norm (Negative); pH Urine 7 (5-7)
[2024-02-06 20:23] LABS: Bacteria Urine 1+ /hpf; RBC Urine 80-100 /hpf (0-2); Squamous Epithelial Cell Urine 0-4 /hpf (0-5); WBC Urine 21-50 /hpf (0-5)
[2024-02-06 20:24] LABS: Add Urine Culture? Yes
== END 2024-02-06 17:10 | disposition home or self-care (01) ==
LOC: LAB 17:11
PROVIDERS: PCP Family Medicine; Visit Provider Family Medicine
DX: C61 Malignant neoplasm of prostate (principal)
CPT/HCPCS: 81001; 87086; 87106

== ENCOUNTER 2024-02-17 13:08 | Outpatient (CLI) | payer MEDICARE, MEDICAID, SELFPAY ==
[2024-02-17 13:53] LABS: Basophils % 0.6 %; Eosinophils # 0.2 10^3/uL (0.0-0.8); Eosinophils % 3.7 %; Hematocrit 32.6 % (37-53); Lymphocytes % 19.8 %; Mean Corpuscular HGB Conc 31.6 g/dL (30-55); Mean Corpuscular Hemoglobin 29.3 pg (27-33); Mean Corpuscular Volume 92.6 fl (82-101); Mean Platelet Volume 9.4 fL (7.4-10.4); Monocytes # 0.3 10^3/uL (0.2-0.9); Monocytes % 6.8 %; Neutrophils # 3.32 10^3/uL (1.8-7.7); Neutrophils % 68.7 %; Nucleated Red Blood Cells % 0 %; Platelet Count 143 10^3/cmm (157-399); Red Blood Count 3.52 10^6/uL (3.85-5.65); Red Cell Distribution Width 13.8 % (12.1-15.1); White Blood Count 4.84 10^3/uL (3.29-11.43)
[2024-02-17 14:25] LABS: Alanine Aminotransferase < 5 U/L (0-41); Albumin Level 4.2 g/dL (3.5-5.2); Alkaline Phosphatase 89 U/L (40-130); Anion Gap 13.9 (5-19); Aspartate Amino Transferase 9 U/L (0-40); Blood Urea Nitrogen 25 mg/dL (8-23); Calcium 8.4 mg/dL (8.5-10.5); Carbon Dioxide 23 mmol/L (22-29); Chloride 108 mmol/L (98-107); Globulin 3.3 g/dL (1.3-4.6); Glomerular Filtration Rate 55.2 mL/min (90-130); Glucose 98 mg/dL (65-115); Osmolality Calculated 294 mOsm/kg (285-295); Potassium 4.9 mmol/L (3.5-5.1); Sodium 140 mmol/L (136-145); Total Bilirubin 0.2 mg/dL (0.15-1.2); Total Protein 7.5 g/dL (6.6-8.7)
[2024-02-20 16:13] LABS: Testosterone Total < 2.5 ng/dL (193-740)
== END 2024-02-17 13:09 | disposition home or self-care (01) ==
LOC: LAB 13:16
PROVIDERS: Internal Medicine Medical Oncology; PCP Family Medicine
DX: C61 Malignant neoplasm of prostate (principal); C79.51 Secondary malignant neoplasm of bone
CPT/HCPCS: 36415; 80053; 84153; 84403; 85025

== ENCOUNTER 2024-02-23 09:54 | Oncology outpatient (recurring) (ONCR) | payer MEDICARE, MEDICAID, SELFPAY ==
[2024-02-23] MEDS: denosumab 120 mg SDV SUBCUT (10:55)
[2024-02-23] MEDS: leuprolide 22.5 mg Kit IM (10:57)
== END 2024-03-07 23:59 | disposition home or self-care (01) ==
PROVIDERS: PCP Family Medicine; Visit Provider Internal Medicine Medical Oncology
DX: C61 Malignant neoplasm of prostate; Z79.899 Other long term (current) drug therapy; Z51.11 Encounter for antineoplastic chemotherapy; Z79.818 Long term (current) use of other agents affecting estrogen receptors and estrogen levels
CPT/HCPCS: 96372; 96402; 99214; J0897; J9217

== ENCOUNTER 2024-03-30 09:40 | Oncology outpatient (recurring) (ONCR) | payer MEDICARE, MEDICAID, SELFPAY ==
[2024-03-22] MEDS: denosumab 120 mg SDV SUBCUT (15:32)
[2024-03-22] MEDS: cyanocobalamin 1,000 mcg/mL SDV 1000 MCG IM (15:32)
[2024-03-29 14:05] VITALS: BP 204/110; PULSE 91; RESP 17; TEMP 36.3; O2SAT 100
[2024-03-29 14:08] VITALS: BP 196/110
[2024-03-29] MEDS: sodium chloride 0.9% 1,000 ML 999 ML IV (14:14)
[2024-03-29] MEDS: dexamethasone 10 mg/mL INJ 12 MG IVP (14:15)
[2024-03-29 14:16] LABS: Basophils % 0.4 %; Eosinophils # 0.1 10^3/uL (0.0-0.8); Eosinophils % 0.7 %; Hematocrit 34.8 % (37-53); Lymphocytes # 0.7 10^3/uL (0.8-4.8); Lymphocytes % 8.3 %; Mean Corpuscular HGB Conc 33.3 g/dL (30-55); Mean Corpuscular Hemoglobin 29.9 pg (27-33); Mean Corpuscular Volume 89.7 fl (82-101); Mean Platelet Volume 9.5 fL (7.4-10.4); Monocytes # 0.5 10^3/uL (0.2-0.9); Monocytes % 6.4 %; Neutrophils # 6.81 10^3/uL (1.8-7.7); Nucleated Red Blood Cells % 0 %; Platelet Count 141 10^3/cmm (157-399); Red Blood Count 3.88 10^6/uL (3.85-5.65); Red Cell Distribution Width 13.1 % (12.1-15.1); White Blood Count 8.11 10^3/uL (3.29-11.43)
[2024-03-29] MEDS: ondansetron 2 mg/ML SDV 2 mL 8 MG IVP (14:17)
[2024-03-29 14:44] VITALS: RESP 18
[2024-03-29] MEDS: morphine 4 mg/mL SDV 1 mL 2 MG IVP ×2 (14:44→15:35)
[2024-03-29 14:50] LABS: Lactate (Lactic Acid level) 2.8 mmol/L (0.5-2.2)
[2024-03-29 14:52] LABS: Procalcitonin 0.15 ng/mL (0-0.5); Testosterone Total 2.5 ng/dL (193-740)
[2024-03-29 15:05] LABS: Alanine Aminotransferase < 5 U/L (0-41); Albumin Level 4.2 g/dL (3.5-5.2); Alkaline Phosphatase 109 U/L (40-130); Anion Gap 21.1 (5-19); Aspartate Amino Transferase 9 U/L (0-40); Blood Urea Nitrogen 19 mg/dL (8-23); Carbon Dioxide 20 mmol/L (22-29); Chloride 99 mmol/L (98-107); Globulin 3.5 g/dL (1.3-4.6); Glomerular Filtration Rate 50.7 mL/min (90-130); Glucose 136 mg/dL (65-115); Osmolality Calculated 288 mOsm/kg (285-295); Potassium 3.1 mmol/L (3.5-5.1); Sodium 137 mmol/L (136-145); Total Bilirubin 0.4 mg/dL (0.15-1.2); Total Protein 7.7 g/dL (6.6-8.7)
[2024-03-29 15:35] VITALS: RESP 18
[2024-03-29] MEDS: levofloxacin-dextrose 5 % 500 MG/100 ML PREMIX 100 MG IV (15:39)
[2024-03-29 16:06] LABS: Bilirubin Urine Negative (Negative); Blood Urine 3+ (Negative); Glucose Urine UA Negative (Normal); Ketones Urine 1+ (Negative); Leukocyte Esterase Urine 3+ (Negative); Nitrate Urine Positive (Negative); Protein Urine 2+ (Negative); Specific Gravity, Urine 1.009 (1.005-1.030); Urine Appearance Turbid (CLEAR); Urine Color Yellow (Yellow); Urobilinogen Urine 0.2 mg/dL (Negative); pH Urine 7.5 (5-7)
[2024-03-29 16:08] LABS: Bacteria Urine 4+ /hpf; Hyaline Casts Urine 25.23 /lpf; RBC Urine 51-100 /hpf (0-2); Squamous Epithelial Cell Urine 0-5 /hpf (0-5); WBC Urine >100 /hpf (0-5)
[2024-03-29 16:26] LABS: UA Slide Review UA Slide Review Perf
[2024-03-29 16:50] VITALS: BP 197/119; PULSE 74; RESP 18; TEMP 36.6; O2SAT 97
[2024-03-29 18:06] LABS: Adenovirus Not Detected (NOT DETECT); Chlamydia Pneumoniae Not Detected (NOT DETECT); Coronavirus 229E,HKU1,NL63,OC4 Not Detected (NOT DETECT); Human Metapneumovirus Not Detected (NOT DETECT); Human Rhinovirus/Enterovirus Not Detected (NOT DETECT); Influenza A Not Detected (NOT DETECT); Influenza A H1 Not Detected (NOT DETECT); Influenza A H1-2009 Not Detected (NOT DETECT); Influenza A H3 Not Detected (NOT DETECT); Influenza B Not Detected (NOT DETECT); Mycoplasma Pneumoniae Not Detected (NOT DETECT); Parainfluenza Virus Type 1 Not Detected (NOT DETECT); Parainfluenza Virus Type 2 Not Detected (NOT DETECT); Parainfluenza Virus Type 3 Not Detected (NOT DETECT); Parainfluenza Virus Type 4 Not Detected (NOT DETECT); Respiratory Syncytial Virus A Not Detected (NOT DETECT); Respiratory Syncytial Virus B Not Detected (NOT DETECT); SARS-COV-2 Not Detected (NOT DETECT)
--- NOTE | 2024-03-30 08:11 | PC.NURSE ---
Patient daughter, Haley, called regarding medications patient received yesterday 03/29/24. This nurse explained to daughter that patient received morphine, dexamethasone, zofran, and levaquin. Daughter stated to not give any steroids because patient was up all night . This nurse explained to daughter that this is normal side effect of dexamethasone. Daughter verbalized understanding.
[2024-03-30 10:11] VITALS: BP 220/107; PULSE 67; RESP 16; TEMP 37.1; O2SAT 99
[2024-03-30 10:16] VITALS: BP 210/100
[2024-03-30] MEDS: sodium chloride 0.9% 1,000 ML 999 ML IV (10:31)
[2024-03-30] MEDS: famotidine 20 mg/2 mL INJ IVP (10:34)
[2024-03-30] MEDS: ondansetron 2 mg/ML SDV 2 mL 8 MG IVP (10:37)
[2024-03-30 10:42] VITALS: RESP 16; O2SAT 99
[2024-03-30] MEDS: morphine 4 mg/mL SDV 1 mL 2 MG IVP ×2 (10:42→12:19)
[2024-03-30] MEDS: levofloxacin-dextrose 5 % 500 MG/100 ML PREMIX 100 MG IV (11:19)
[2024-03-30 11:22] VITALS: BP 211/107; PULSE 67; RESP 16; O2SAT 98
[2024-03-30 12:19] VITALS: RESP 18
[2024-03-30 12:26] VITALS: BP 173/100; PULSE 82; RESP 18; TEMP 37.3; O2SAT 97
== END 2024-04-07 23:55 | disposition home or self-care (01) ==
PROVIDERS: PCP Family Medicine; Visit Provider Internal Medicine Medical Oncology
DX: Z53.9 Procedure and treatment not carried out, unspecified reason; C61 Malignant neoplasm of prostate; R30.9 Painful micturition, unspecified; Z79.1 Long term (current) use of non-steroidal anti-inflammatories (NSAID); Z79.52 Long term (current) use of systemic steroids; Z79.899 Other long term (current) drug therapy
CPT/HCPCS: 36415; 80053; 81001; 83605; 84145; 84153; 84403; 85025; 87040; 87077; 87086; 87186; 87486; 87581; 87633; 96360; 96361; 96365; 96372; 96375; 96376; J0897; J1100; J1956; J2270; J2405; J3420; J3490; J7030

== ENCOUNTER 2024-04-26 12:27 | Oncology outpatient (recurring) (ONCR) | payer MEDICARE, MEDICAID, SELFPAY ==
[2024-04-18 11:48] LABS: Basophils % 0.5 %; Eosinophils # 0.2 10^3/uL (0.0-0.8); Eosinophils % 3.8 %; Hematocrit 29.4 % (37-53); Lymphocytes # 0.7 10^3/uL (0.8-4.8); Lymphocytes % 10.6 %; Mean Corpuscular Hemoglobin 28.7 pg (27-33); Mean Platelet Volume 8.6 fL (7.4-10.4); Monocytes # 0.5 10^3/uL (0.2-0.9); Monocytes % 7.4 %; Neutrophils % 76.7 %; Nucleated Red Blood Cells % 0 %; Platelet Count 210 10^3/cmm (157-399); Red Blood Count 3.38 10^6/uL (3.85-5.65); Red Cell Distribution Width 12.9 % (12.1-15.1); White Blood Count 6.25 10^3/uL (3.29-11.43)
[2024-04-18] MEDS: sodium chloride 0.9% 1,000 ML 999 ML IV (11:57)
[2024-04-18 12:04] LABS: Alanine Aminotransferase < 5 U/L (0-41); Albumin Level 3.6 g/dL (3.5-5.2); Alkaline Phosphatase 136 U/L (40-130); Anion Gap 14.1 (5-19); Aspartate Amino Transferase 11 U/L (0-40); Blood Urea Nitrogen 12 mg/dL (8-23); Calcium 7.3 mg/dL (8.5-10.5); Carbon Dioxide 26 mmol/L (22-29); Chloride 99 mmol/L (98-107); Globulin 3.2 g/dL (1.3-4.6); Glomerular Filtration Rate 46.8 mL/min (90-130); Glucose 113 mg/dL (65-115); Osmolality Calculated 283 mOsm/kg (285-295); Potassium 3.1 mmol/L (3.5-5.1); Sodium 136 mmol/L (136-145); Total Bilirubin 0.2 mg/dL (0.15-1.2); Total Protein 6.8 g/dL (6.6-8.7)
--- NOTE | 2024-04-18 16:34 | PC.NURSE ---
Suprapubic catheter changed via sterile technique by DAVID Cabello. 22Fr catheter used. Good urine flow after change. Pt tolerated well.
[2024-04-26 13:27] LABS: Add Urine Microscopic? YES; Bilirubin Urine Neg (Negative); Blood Urine 3+ (Negative); Glucose Urine UA Norm (Normal); Ketones Urine Negative (Negative); Leukocyte Esterase Urine 2+ (Negative); Nitrate Urine Positive (Negative); Protein Urine 1+ (Negative); Urine Appearance Cloudy (CLEAR); Urine Color Yellow (Yellow); Urobilinogen Urine Norm (Negative); pH Urine 8 (5-7)
[2024-04-26 13:32] LABS: Add Urine Culture? Yes; Bacteria Urine 4+ /hpf; Mucus Urine 1+ /hpf; RBC Urine 40-50 /hpf (0-2); WBC Urine 40-55 /hpf (0-5)
== END 2024-05-07 23:59 | disposition home or self-care (01) ==
PROVIDERS: PCP Family Medicine; Visit Provider Internal Medicine Medical Oncology
DX: C61 Malignant neoplasm of prostate (principal)
CPT/HCPCS: 80053; 81001; 85025; 87086; 87106; 96360; J7030

== ENCOUNTER 2024-06-19 16:11 | Oncology outpatient (recurring) (ONCR) | payer MEDICARE, MEDICAID, SELFPAY ==
[2024-06-19 17:04] LABS: Bilirubin Urine Negative (Negative); Blood Urine 3+ (Negative); Glucose Urine UA Negative (Normal); Ketones Urine Negative (Negative); Leukocyte Esterase Urine 3+ (Negative); Nitrate Urine Negative (Negative); Protein Urine 3+ (Negative); Specific Gravity, Urine 1.015 (1.005-1.030); Urine Appearance Cloudy (CLEAR); Urine Color Yellow (Yellow); pH Urine 6.5 (5-7)
[2024-06-19 17:10] LABS: Add Urine Microscopic? YES; Bacteria Urine 4+ /hpf; Hyaline Casts Urine 1.21 /lpf; RBC Urine 51-100 /hpf (0-2); Squamous Epithelial Cell Urine 0-5 /hpf (0-5); WBC Urine >100 /hpf (0-5)
[2024-06-19 17:16] LABS: Add Urine Culture? Yes
== END 2024-07-07 23:59 | disposition home or self-care (01) ==
PROVIDERS: Internal Medicine Medical Oncology; PCP Family Medicine; Visit Provider Internal Medicine Medical Oncology
DX: C61 Malignant neoplasm of prostate (principal)
CPT/HCPCS: 81001; 87077; 87086; 87186

== ENCOUNTER 2024-08-07 15:00 | Oncology outpatient (recurring) (ONCR) | payer MEDICARE, MEDICAID, SELFPAY ==
[2024-07-30 13:19] LABS: Basophils % 0.5 %; Eosinophils # 0.2 10^3/uL (0.0-0.8); Eosinophils % 3.2 %; Hematocrit 30.3 % (37-53); Lymphocytes # 1.2 10^3/uL (0.8-4.8); Lymphocytes % 20.5 %; Mean Corpuscular HGB Conc 30.7 g/dL (30-55); Mean Corpuscular Hemoglobin 28.3 pg (27-33); Mean Corpuscular Volume 92.1 fl (82-101); Mean Platelet Volume 8.7 fL (7.4-10.4); Monocytes # 0.4 10^3/uL (0.2-0.9); Monocytes % 6.7 %; Neutrophils # 3.93 10^3/uL (1.8-7.7); Neutrophils % 68.7 %; Nucleated Red Blood Cells % 0 %; Platelet Count 199 10^3/cmm (157-399); Red Blood Count 3.29 10^6/uL (3.85-5.65); Red Cell Distribution Width 13.3 % (12.1-15.1); White Blood Count 5.71 10^3/uL (3.29-11.43)
[2024-07-30 13:38] LABS: Alanine Aminotransferase < 5 U/L (0-41); Albumin Level 3.8 g/dL (3.5-5.2); Alkaline Phosphatase 110 U/L (40-130); Anion Gap 16.4 (5-19); Aspartate Amino Transferase 9 U/L (0-40); Blood Urea Nitrogen 32 mg/dL (8-23); Calcium 7.7 mg/dL (8.5-10.5); Carbon Dioxide 21 mmol/L (22-29); Chloride 103 mmol/L (98-107); Globulin 3.7 g/dL (1.3-4.6); Glomerular Filtration Rate 27.1 mL/min (90-130); Glucose 99 mg/dL (65-115); Osmolality Calculated 291 mOsm/kg (285-295); Potassium 3.4 mmol/L (3.5-5.1); Sodium 137 mmol/L (136-145); Total Bilirubin 0.2 mg/dL (0.15-1.2); Total Protein 7.5 g/dL (6.6-8.7)
[2024-07-30 13:48] LABS: Bilirubin Urine Negative (Negative); Blood Urine 3+ (Negative); Glucose Urine UA Negative (Normal); Ketones Urine Negative (Negative); Leukocyte Esterase Urine 3+ (Negative); Nitrate Urine Negative (Negative); Protein Urine 2+ (Negative); Urine Appearance Turbid (CLEAR); Urine Color Yellow (Yellow); Urobilinogen Urine 0.2 mg/dL (Negative); pH Urine 6.5 (5-7)
[2024-07-30 14:25] LABS: UA Manual Slide Review YES; UA Slide Review UA Slide Review Perf
[2024-07-30 14:26] LABS: Bacteria Urine 4+ /hpf; Mucus Urine 1+ /hpf; Other Sediment, Urine BUD YEAST W/HYPHAE; Squamous Epithelial Cell Urine 0-4 /hpf (0-5); WBC Urine >100 /hpf (0-5)
[2024-07-30 14:27] LABS: Add Urine Culture? Yes
[2024-08-03 09:04] VITALS: BP 171/91; PULSE 83; RESP 17; TEMP 36.7; O2SAT 92
[2024-08-03] MEDS: sodium chloride 0.9% 1,000 ML 999 ML IV (09:50)
[2024-08-07 15:06] VITALS: BP 164/86; PULSE 80; RESP 14; TEMP 36.7; O2SAT 99
[2024-08-07] MEDS: ertapenem 1,000 mg SDV 1000 MG IVP (15:43)
[2024-08-07 16:05] VITALS: BP 192/96; PULSE 74; RESP 16; TEMP 36.5; O2SAT 96
== END 2024-08-07 23:59 | disposition home or self-care (01) ==
PROVIDERS: Internal Medicine Medical Oncology; PCP Family Medicine; Visit Provider Internal Medicine Medical Oncology
DX: Z53.9 Procedure and treatment not carried out, unspecified reason (principal); C61 Malignant neoplasm of prostate; Z79.899 Other long term (current) drug therapy
CPT/HCPCS: 36415; 80053; 81001; 85025; 87040; 87077; 87086; 87186; 96360; 96374; J1335; J7030

== ENCOUNTER 2024-08-12 10:30 | Oncology outpatient (recurring) (ONCR) | payer MEDICARE, MEDICAID, SELFPAY ==
[2024-08-08 10:05] VITALS: BP 170/106; PULSE 82; RESP 16; TEMP 37.1; O2SAT 99
[2024-08-08] MEDS: ertapenem 1,000 mg SDV 1000 MG IVP (10:15)
[2024-08-09] MEDS: ertapenem 1,000 mg SDV 1000 MG IVP (15:44)
[2024-08-09 15:56] VITALS: BP 162/89; TEMP 37.2
[2024-08-10] MEDS: ertapenem 1,000 mg SDV 1000 MG IVP (11:08)
[2024-08-10 11:40] VITALS: BP 96/62; PULSE 88; RESP 16; TEMP 36.8; O2SAT 98
== END 2024-09-07 23:59 | disposition home or self-care (01) ==
LOC: ONCMED 08-13 09:17 → OPS 08-14 14:10
PROVIDERS: PCP Family Medicine; Visit Provider Internal Medicine Medical Oncology
DX: Z53.9 Procedure and treatment not carried out, unspecified reason (principal)
CPT/HCPCS: 96374; J1335